=== PATIENT | female | born 1940 | race Caucasian/White ===

== ENCOUNTER 2020-12-07 09:26 | Inpatient (IN) | payer MEDICARE, SELFPAY ==
--- NOTE | ~2020-12-07 | XR_ITS ---
EXAMINATION: XR CHEST CLINICAL INFORMATION: Shortness of breath COMPARISON: Chest CT August 30, 2019 TECHNIQUE: Frontal view of the chest was obtained. FINDINGS: The cardiac silhouette is enlarged. Lungs are adequately aerated. Prominence of the central pulmonary vasculature and diffuse interstitial markings. No gross lobar consolidation identified. No pleural effusion or pneumothorax. XR/XR chest 1V IMPRESSION: X-rays findings are very similar to retail commission sales associate radiograph imaging from August 30, 2019 and likely branch customer service representative of diffuse emphysematous changes of the lungs. A mild superimposed viral infiltrate or mild volume overload are also within the differential. Clinical correlation is recommended.
[2020-12-07 09:32] VITALS: PULSE 60; O2SAT 98
[2020-12-07 09:35] VITALS: BP 121/61; PULSE 60; RESP 18; TEMP 36.2; O2SAT 99; BMI 37.5
--- NOTE | 2020-12-07 09:46 | ECG_ITS ---
Test Reason : DYSPNEA Blood Pressure : / mmHG Vent. Rate : 065 BPM Atrial Rate : 000 BPM P-R Int : 000 ms QRS Dur : 098 ms QT Int : 414 ms P-R-T Axes : 000 111 241 degrees QTc Int : 430 ms Atrial fibrillation RSR' or QR pattern in V1 suggests right ventricular conduction delay Possible Right ventricular hypertrophy ST & T wave abnormality, consider inferior ischemia ST & T wave abnormality, consider anterolateral ischemia Abnormal ECG No previous ECGs available Referred By: Senait Richard Electronically Signed By:BRYSON NARVAEZ MD
--- NOTE | 2020-12-07 09:47 | ED.GENADULT ---
HPI - General Adult General Chief complaint: Dyspnea Stated complaint: ? Time Seen by Provider: 12/07/20 09:45 Source: patient and EMS Mode of arrival: EMS Limitations: no limitations History of Present Illness HPI narrative: 80-year-old female brought in by ambulance from rehab for evaluation of hypoxia, dyspnea. Patient is known to have history of congestive heart failure, COPD, PE (on chronic Coumadin). Patient was found at the rehab place to be hypoxic and complaining of dyspnea patient was sent by the rehab for further evaluation in the emergency department. Patient while in the emergency department appears stable, complaining of bilateral lower extremity swelling, patient had a recent hospitalization at [facility] for congestive heart failure ([facility] record were requested). Patient also has been complaining of nonproductive dry cough, no fever, no chills. Related Data Allergies Allergy/AdvReac Type Severity Reaction Status Date / Time No Known Allergies Allergy Verified 12/07/20 09:41 Review of Systems Review of Systems: All other systems are reviewed and are negative Constitutional: Reports as per HPI and Reports no additional constitutional complaints Eyes: Reports as per HPI and Reports no additional eye complaints Reports system reviewed and no additional complaints, except as documented Cardiovascular: Reports as per HPI and Reports no additional cardiovascular complaints Respiratory: Reports as per HPI and Reports no additional respiratory complaints Gastrointestinal: Reports as per HPI and Reports no additional gastrointestinal complaints Genitourinary: Reports no additional female genitourinary complaints Musculoskeletal: Reports no additional musculoskeletal complaints Skin/Breast: Reports system reviewed and no additional complaints, except as docu Psychiatric: Reports no additional psychiatric complaints Endocrine: Reports no additional endocrine complaints Hematologic/Lymphatic: Reports no additional hematologic/lymphatic complaints Allergic/Immunologic: Reports no additional allergic/immunologic complaints Reports system reviewed and no additional complaints, except as documented and Reports Abnormal speech present [facility] Past Medical History Medical History A-fib CHF (congestive heart failure) CKD (chronic kidney disease) COPD (chronic obstructive pulmonary disease) Depression GERD (gastroesophageal reflux disease) Gout HTN (hypertension) Hypothyroid Obesity Pulmonary HTN Social History Social History Advance Directives: No Advance Directives Information Provided: No Physical Exam Vital Signs: Vital Signs: Last Vital Signs Temp 98.4 F 12/07/20 12:46 Pulse 63 12/07/20 12:46 Resp 16 12/07/20 12:46 BP 125/59 L 12/07/20 12:46 Pulse Ox 96 12/07/20 12:46 Oxygen Flow Rate 2 12/07/20 09:35 Body Mass Index 37.5 Vital signs have been reviewed as appeared to be correct. Blood pressure normal. Heart rate normal. Respiration rate normal. Temperature normal. Oxygen saturation normal. Appearance: Alert. Oriented X3. No acute distress. Head: Normal external exam. Normocephalic. Atraumatic. No Emery signs noted. No raccoon eyes noted Eyes: PERRLA. EOMI. Conjunctiva and sclera normal. Eyelids normal. ENT: TM's Normal. Pharynx normal. Uvula midline. Moist mucous membranes. No trismus noted. No drooling noted. No muffled voice noted. Neck: Normal inspection. Neck supple. FROM. No adenopathy. Thyroid Normal. No meningeal signs. No neck mass noted. CVS: Normal heart rate and rhythm. Heart sound normal. No murmurs noted. Pulses normal throughout. Respiratory: No respiratory distress. Painless inspiration. Breath sounds normal. Mild diffuse bilateral expiratory wheezing with prolonged expiration. Bilateral basilar rales on both lung valdes. Chest nontender. No accessory muscle usage noted or decreased air movement noted. Abdomen: Soft and nontender. Bowel sounds normal in all 4 quadrants. No distention noted. No organomegaly noted. No visible injury noted. Back: No CVA tenderness. Full range of motion noted. Skin: Skin warm and dry. Normal skin color. Normal skin turgor. No rashes/lesions/lacerations noted. Extremities: +2 bilateral lower extremity edema. Extremities exhibit normal range of motion. Extremities nontender. Neuro: Oriented X 3. Cranial nerve exam: II-XII are grossly intact No motor deficit. No sensory deficit. Reflexes normal. Course Course Course Narrative: Assessment and plan. 80-year-old female came in from rehab for shortness of breath and hypoxia. Physical exam and labs are consistent with congestive heart failure/CKD. Will admit for diuresis, and monitoring CMP. Medical Decision Making Lab Data Lab results reviewed: Yes I reviewed the patient's lab results. Result diagrams: 12/07/20 11:44 12/07/20 11:44 Labs: Lab Results 12/07/20 12/07/20 12/07/20 Range/Units 11:44 11:44 11:44 WBC 7.6 (4.8-10.8) X10*3/uL RBC 3.94 L (4.20-5.50) X10*6/uL Hgb 12.8 (12.0-16.0) g/dl Hct 39.5 (37-47) % MCV 100.3 H (80-98) fL MCH 32.5 (27.0-33.0) pg MCHC 32.4 (31.0-35.0) g/dl RDW 18.9 H (11.0-16.0) % Plt Count 143 L (160-400) X10*3/uL MPV 11.4 (9.4-12.3) fL Immature Gran % (Auto) 0.4 (0.0-0.4) % Neut % (Auto) 80.7 H (45-73) % Lymph % (Auto) 6.8 L (20-40) % [place] % (Auto) 7.3 (2-11) % Eos % (Auto) 4.4 H (0-4) % Baso % (Auto) 0.4 (0-2) % Lymph # (Auto) 0.5 L (1.2-4.9) X10*3/uL [place] # (Auto) 0.6 (0.1-1.2) X10*3/uL Eos # (Auto) 0.3 (0.0-0.4) X10*3/uL Baso # (Auto) 0.0 (0.0-0.2) X10*3/uL Abs Immat Gran (auto) 0.03 (0.00-0.03) X10*3/uL Absolute Neuts (auto) 6.1 (2.0-8.3) X10*3/uL Absolute Nucleated RBC 0.000 (0.0-0.012) X10*3/uL Nucleated RBC % (auto) 0.0 (0.0-0.2) /100WBC Sodium 138 (135-145) mmol/L Potassium 4.0 (3.3-5.1) mmol/L Chloride 107 (96-108) mmol/L Carbon Dioxide 21 L (22-29) mmol/L Anion Gap 14 (12-20) BUN 87 H* (9-16) mg/dL Creatinine 2.74 H (0.5-1.4) mg/dL Estim Creat Clear Calc 20.4 Estimated GFR 17 Random Glucose 108 (60-115) mg/dL Calcium 8.7 (8.4-10.2) mg/dL Total Bilirubin 2.0 H (0.0-1.0) mg/dL Direct Bilirubin 1.5 H (0.0-0.5) mg/dL AST 13 (5-31) U/L ALT 12 (0-31) U/L Alkaline Phosphatase 95 (39-117) U/L Troponin I High Sens 13.2 (<3.5-17.0) ng/L B-Natriuretic Peptide (<100) pg/mL Total Protein 6.0 L (6.5-8.0) g/dL Albumin 3.3 L (3.5-5.0) g/dL Lipase 17 (8-78) U/L COVID-19 ([facility]) (Negative) COVID-19 Clin Com 12/07/20 12/07/20 Range/Units 11:44 11:44 WBC (4.8-10.8) X10*3/uL RBC (4.20-5.50) X10*6/uL Hgb (12.0-16.0) g/dl Hct (37-47) % MCV (80-98) fL MCH (27.0-33.0) pg MCHC (31.0-35.0) g/dl RDW (11.0-16.0) % Plt Count (160-400) X10*3/uL MPV (9.4-12.3) fL Immature Gran % (Auto) (0.0-0.4) % Neut % (Auto) (45-73) % Lymph % (Auto) (20-40) % [place] % (Auto) (2-11) % Eos % (Auto) (0-4) % Baso % (Auto) (0-2) % Lymph # (Auto) (1.2-4.9) X10*3/uL [place] # (Auto) (0.1-1.2) X10*3/uL Eos # (Auto) (0.0-0.4) X10*3/uL Baso # (Auto) (0.0-0.2) X10*3/uL Abs Immat Gran (auto) (0.00-0.03) X10*3/uL Absolute Neuts (auto) (2.0-8.3) X10*3/uL Absolute Nucleated RBC (0.0-0.012) X10*3/uL Nucleated RBC % (auto) (0.0-0.2) /100WBC Sodium (135-145) mmol/L Potassium (3.3-5.1) mmol/L Chloride (96-108) mmol/L Carbon Dioxide (22-29) mmol/L Anion Gap (12-20) BUN (9-16) mg/dL Creatinine (0.5-1.4) mg/dL Estim Creat Clear Calc Estimated GFR Random Glucose (60-115) mg/dL Calcium (8.4-10.2) mg/dL Total Bilirubin (0.0-1.0) mg/dL Direct Bilirubin (0.0-0.5) mg/dL AST (5-31) U/L ALT (0-31) U/L Alkaline Phosphatase (39-117) U/L Troponin I High Sens (<3.5-17.0) ng/L B-Natriuretic Peptide 2701 H (<100) pg/mL Total Protein (6.5-8.0) g/dL Albumin (3.5-5.0) g/dL Lipase (8-78) U/L COVID-19 ([facility]) Negative (Negative) COVID-19 Clin Com See Note Imaging Data Chest x-ray: Radiologist's impression: X-rays findings are very similar to hide stretcher hand radiograph imaging from August 30, 2019 and likely parts counter representative of diffuse emphysematous changes of the lungs. A mild superimposed viral infiltrate or mild volume overload are also within the differential. Clinical correlation is recommended. ? Discharge Plan Discharge Clinical Impression: Congestive heart failure, Acute on chronic kidney failure Patient Disposition: Admitted As Inpatient
[2020-12-07 11:48] LABS: MANUAL DIFF FLAG NO
[2020-12-07 11:50] LABS: Basophils Percent Auto 0.4 % (0-2); Eosinophils Absolute Auto 0.3 X10*3/uL (0.0-0.4); Eosinophils Percent Auto 4.4 % (0-4); Hematocrit 39.5 % (37-47); Hemoglobin 12.8 g/dl (12.0-16.0); Imm Gran Abs Auto 0.03 X10*3/uL (0.00-0.03); Imm Gran Pct Auto 0.4 % (0.0-0.4); Lymphocytes Absolute Auto 0.5 X10*3/uL (1.2-4.9); Lymphocytes Percent Auto 6.8 % (20-40); Mean Corpuscular HGB Conc 32.4 g/dl (31.0-35.0); Mean Corpuscular Hemoglobin 32.5 pg (27.0-33.0); Mean Corpuscular Volume 100.3 fL (80-98); Mean Platelet Volume 11.4 fL (9.4-12.3); Monocytes Absolute Auto 0.6 X10*3/uL (0.1-1.2); Monocytes Percent Auto 7.3 % (2-11); Neutrophils Absolute Auto 6.1 X10*3/uL (2.0-8.3); Neutrophils Percent Auto 80.7 % (45-73); Platelet Count 143 X10*3/uL (160-400); Red Blood Count 3.94 X10*6/uL (4.20-5.50); Red Cell Distribution Width 18.9 % (11.0-16.0); White Blood Count 7.6 X10*3/uL (4.8-10.8)
[2020-12-07 12:04] LABS: COVID-19 Test Negative (Negative)
[2020-12-07 12:08] LABS: Alanine Aminotransferase 12 U/L (0-31); Albumin Level 3.3 g/dL (3.5-5.0); Alkaline Phosphatase 95 U/L (39-117); Anion Gap 14 (12-20); Aspartate Amino Transferase 13 U/L (5-31); Bilirubin Direct 1.5 mg/dL (0.0-0.5); Blood Urea Nitrogen 87 mg/dL (9-16); Calcium 8.7 mg/dL (8.4-10.2); Carbon Dioxide 21 mmol/L (22-29); Chloride 107 mmol/L (96-108); Creatinine Clr Calc Pharmacy 20.4; Estimated Glomerular Filt Rate 17; Glucose Random 108 mg/dL (60-115); Lipase 17 U/L (8-78); Sodium 138 mmol/L (135-145)
[2020-12-07 12:11] LABS: B Type Natriuretic Peptide 2701 pg/mL (<100); Troponin-I High Sensitivity 13.2 ng/L (<3.5-17.0)
[2020-12-07 12:46] VITALS: BP 125/59; PULSE 63; RESP 16; TEMP 36.9; O2SAT 96
--- NOTE | 2020-12-07 13:38 | HO.PM.IMCN ---
History of Present Illness Data of Consult Service Date: 12/07/20 Requesting physician: Tian Neri Primary Care Provider: Manny Adams MD HPI Reason for consult: This admitting H istor and Physical not consult chief complaint: shortness of breath 80 year female with congestive heart failure detail or EF unknown, CKD4 followed by Dr. Hancock, COPD, AFIB on coumadin and other PMH as listed below. She was recently admitted to [facility] and treated for shortness and heart failure for nearly a week and was discharged to rehab 2 days ago and she presented to [place] ED with increasing shortness of breath, and increasing leg edema. She has been sleeping in recliner and does have PND. Finding here including BNP of 2701, CXR shows elements of CHF, covid negative (She's vaccinated ). Given 20 mg of IV Lasix. Review of Systems Review of Systems: Gen: no fever Resp: + sob, no cough CV: no chest, + RAE, + leg edema GI: No n/v, no abd pain Neuro: No confusion Yes all other systems are reviewed and are negative [facility] Medical History A-fib CHF (congestive heart failure) CKD (chronic kidney disease) COPD (chronic obstructive pulmonary disease) Depression GERD (gastroesophageal reflux disease) Gout HTN (hypertension) Hypothyroid Obesity Pulmonary HTN Family History Father Diabetes Pertinent family history: Mother of old age Social History Household Members: Children Housing: House Do you presently have visiting nurse or other home services: No Alcohol intake: never Patient Tobacco Use Status: Former Tobacco user Quit Date: quit 20 years ago Use of substances other than those prescribed or required for medical reasons: No Have you been hit, kicked, punched, or otherwise hurt by someone within the past year? If so, by whom?: No Do you feel safe in your current relationship?: No Current Relationship Is there a partner from a previous relationship who is making you feel unsafe now?: No Are you made to feel afraid or neglected: No Advance Directives: No Advance Directives Information Provided: No Do you have thoughts of harming others: None Do you have a plan to hurt others: No Plan Recently lost weight without trying: No Nutrition Risks: No Nutritional Risk Patient : No : No Poor oral hygiene: No Meds Allergies Allergy/AdvReac Type Severity Reaction Status Date / Time No Known Allergies Allergy Verified 12/07/20 09:41 Active Medications: Current Medications Pharmacy Consult (Consult Rx Perform Med Rec) 1 each MISCELLANE ONCE PRN PRN Reason: Consult order Home Medications Medication Instructions Recorded Confirmed Last Taken Type acetaminophen 325 mg tablet 650 mg PO Q4H PRN 12/07/20 12/07/20 Unknown History albuterol sulfate 90 mcg/actuation 1 puff INHALATION Q4H PRN 12/07/20 12/07/20 Unknown History aerosol inhaler allopurinol 100 mg tablet 1 tab PO DAILY 12/07/20 12/07/20 12/07/20 History budesonide-formoterol HFA 160 2 puff INHALATION DAILY 12/07/20 12/07/20 12/07/20 History mcg-4.5 mcg/actuation aerosol inhaler (Symbicort) bupropion HCl 75 mg tablet 150 mg PO DAILY 12/07/20 12/07/20 12/07/20 History ferrous sulfate 325 mg (65 mg 325 mg PO DAILY 12/07/20 12/07/20 12/07/20 History iron) tablet,delayed release furosemide 40 mg tablet 40 mg PO BID 12/07/20 12/07/20 12/07/20 History glipizide 2.5 mg tablet, extended 2.5 mg PO DAILY 12/07/20 12/07/20 12/07/20 History release 24 hr guaifenesin 100 mg/5 mL oral 200 mg PO Q4H PRN 12/07/20 12/07/20 12/05/20 History liquid (Serena-Tussin) levothyroxine 75 mcg tablet 75 mcg PO DAILY 12/07/20 12/07/20 12/07/20 History metoprolol tartrate 25 mg tablet 25 mg PO BID 12/07/20 12/07/20 12/07/20 History multivitamin 1 tab PO DAILY 12/07/20 12/07/20 12/07/20 History pantoprazole 40 mg tablet,delayed 40 mg PO DAILY 12/07/20 12/07/20 12/07/20 History release sildenafil (pulm.hypertension) 20 20 mg PO TID 12/07/20 12/07/20 12/07/20 History mg tablet tiotropium bromide 18 mcg capsule 18 mcg INHALATION DAILY 12/07/20 12/07/20 12/07/20 History with inhalation device (Spiriva with HandiHaler) warfarin 2 mg tablet 2 mg PO DAILY 12/07/20 12/07/20 12/06/20 16:31 History Physical Exam Vital Signs and Narrative: Vital Signs: Last Vital Signs Temp 98.4 F 12/07/20 12:46 Pulse 63 12/07/20 12:46 Resp 16 12/07/20 12:46 BP 125/59 L 12/07/20 12:46 Pulse Ox 96 12/07/20 12:46 Oxygen Flow Rate 2 12/07/20 09:35 Body Mass Index 37.5 Const: Other: Constitutional: Alert, in no distress, overweight. Mental Status: Oriented to person, place and time. Eyes: Pupils are equal, round and reactive to light. Ear, Nose and Throat: Oropharynx clear, mucous membranes moist. Ears and nose without eformities. Trachea midline. Respiratory: Clear to auscultation. No wheezing. Has rales at both bases. Cardiovascular: S1 S2 iregu iregular. No murmurs, rubs or gallops. 2+pitting edema bilaterally Gastrointestinal: Abdomen soft, non-tender, non-distended. Normal bowel sounds.? Neurologic: Cranial nerves II-XII grossly intact. No focal neurological deficits. Moves all extremities spontaneously.? Skin: No rashes or lesions.? Musculoskeletal: No cyanosis or clubbing. Psychiatric: Normal mood and affect? Results Labs CBC and Chem 7: 12/07/20 11:44 12/07/20 11:44 Labs: Laboratory Results - last 24 hr 12/07/20 12/07/20 12/07/20 11:44 11:44 11:44 MCV 100.3 H MCH 32.5 MCHC 32.4 RDW 18.9 H Plt Count 143 L MPV 11.4 Immature Gran % (Auto) 0.4 Neut % (Auto) 80.7 H Lymph % (Auto) 6.8 L [place] % (Auto) 7.3 Eos % (Auto) 4.4 H Baso % (Auto) 0.4 Lymph # (Auto) 0.5 L [place] # (Auto) 0.6 Eos # (Auto) 0.3 Baso # (Auto) 0.0 Abs Immat Gran (auto) 0.03 Absolute Neuts (auto) 6.1 Absolute Nucleated RBC 0.000 Nucleated RBC % (auto) 0.0 Anion Gap 14 Estim Creat Clear Calc 20.4 Estimated GFR 17 Random Glucose 108 Calcium 8.7 Total Bilirubin 2.0 H Direct Bilirubin 1.5 H AST 13 ALT 12 Alkaline Phosphatase 95 Troponin I High Sens 13.2 B-Natriuretic Peptide Total Protein 6.0 L Albumin 3.3 L Lipase 17 COVID-19 ([facility]) COVID-19 Clin Com 12/07/20 12/07/20 11:44 11:44 MCV MCH MCHC RDW Plt Count MPV Immature Gran % (Auto) Neut % (Auto) Lymph % (Auto) [place] % (Auto) Eos % (Auto) Baso % (Auto) Lymph # (Auto) [place] # (Auto) Eos # (Auto) Baso # (Auto) Abs Immat Gran (auto) Absolute Neuts (auto) Absolute Nucleated RBC Nucleated RBC % (auto) Anion Gap Estim Creat Clear Calc Estimated GFR Random Glucose Calcium Total Bilirubin Direct Bilirubin AST ALT Alkaline Phosphatase Troponin I High Sens B-Natriuretic Peptide 2701 H Total Protein Albumin Lipase COVID-19 ([facility]) Negative COVID-19 Clin Com See Note Imaging Radiologist's Impressions: Impressions Chest X-Ray 12/07/20 09:45 IMPRESSION: X-rays findings are very similar to traveling plant operator radiograph imaging from August 30, 2019 and likely risk control field representative of diffuse emphysematous changes of the lungs. A mild superimposed viral infiltrate or mild volume overload are also within the differential. Clinical correlation is recommended. Assessment and Plan (1) Congestive heart failure: Status: Acute 80 year old female with chronc heart failure, likely systolic, HTN, HLD, AFIB, CKD 4, recent hospitalization at [facility] for heart failure exacerbation and here with yet another exacerbation of heart failure. #Acute on chronic congestive heart failure, I suspect systolic in nature. -IV diuretics, I think she needs more than 20 of Lasix -Get record from [facility] cardiology to see -Follow I/O, weight, salt, and trend BNP. There is no evidence of ischemia #COPD--there is no acute exacerbation #AFIB--continue coumadin and rate control agents #CKD--there is no SAM, BUN/CRe at [facility] yesterday was 79/2.49, she see Dr. Hancock #
--- NOTE | 2020-12-07 13:55 | PC.NURSE ---
pt is aware of plan care for admission to hosp.
--- NOTE | 2020-12-07 13:57 | PC.NURSE ---
lungs - dimished all lobes.
--- NOTE | 2020-12-07 14:29 | PHA.MEDREC ---
Pharmacy Consult ? Medication Reconciliation Pharmacy has completed the medication reconciliation. There are no remarkable issues for provider's attention. Patient came from [facility] with a medication list. Padmini Dominguez, CarolD
[2020-12-07] MEDS: Furosemide 20 MG/2 ML VIAL IVPUSH (15:19)
[2020-12-07 15:50] VITALS: BP 108/54; PULSE 76; RESP 18; TEMP 36.6; O2SAT 97
[2020-12-07 16:52] LABS: INTERNATIONAL NORM RATIO 1.6 (0.9-1.1)
[2020-12-07] MEDS: 0.9 % Sodium Chloride Flush 3 ML SYRINGE IVFLUSH (17:45)
[2020-12-07 19:21] VITALS: BP 114/51; PULSE 71; RESP 18; TEMP 36.6; O2SAT 93
[2020-12-07 19:32] LABS: Appearance Urine CLEAR; Color Urine YELLOW; Glucose Urine UA NEG (NEG); Leukocyte Esterase Urine NEG (NEG); Nitrite Urine NEG (NEG); PH 5.5 (5.0-8.0); Specific Gravity - Urine 1.015 (1.005-1.025); UACC Culture Trigger NO; Urine Blood TRACE (NEG); Urine Ketones NEG (NEG); Urine Protein NEG (NEG-TRACE)
[2020-12-07 19:39] LABS: Bacteria Urine 2+ /LPF; Squamous Epithelial Cell Urine 1+ /LPF
[2020-12-07 20:53] VITALS: BP 124/61; PULSE 74
[2020-12-07] MEDS: Metoprolol Tartrate 25 MG TABLET PO (20:53)
[2020-12-07] MEDS: Warfarin Sodium 2 MG TABLET PO (20:54)
[2020-12-07] MEDS: Sildenafil Citrate 20 MG TABLET PO (20:55)
[2020-12-07] MEDS: Furosemide 40 MG TABLET PO (20:55)
[2020-12-07] MEDS: Acetaminophen 325 MG TABLET 650 MG PO (23:20)
[2020-12-08] VITALS (9 sets, daily range): BP systolic 95–120; BP diastolic 53–62; PULSE 53–69; RESP 17–20; TEMP 36.1–37.1; O2SAT 91–95; BMI 38.1; BMI 38.4
[2020-12-08] MEDS: 0.9 % Sodium Chloride Flush 3 ML SYRINGE IVFLUSH ×3 (01:34→16:05)
[2020-12-08] MEDS: Omeprazole 20 MG CAPSULE.DR PO (06:17)
[2020-12-08 07:24] LABS: INTERNATIONAL NORM RATIO 1.7 (0.9-1.1); Prothrombin Time 19.5 SEC (9.9-13.0)
[2020-12-08 07:31] LABS: Glucose, Whole Blood 79 mg/dL (60-115)
[2020-12-08 07:40] LABS: B Type Natriuretic Peptide 2712 pg/mL (<100)
[2020-12-08 07:48] LABS: Anion Gap 15 (12-20); Blood Urea Nitrogen 90 mg/dL (9-16); Carbon Dioxide 21 mmol/L (22-29); Chloride 108 mmol/L (96-108); Creatinine Clr Calc Pharmacy 20.8; Estimated Glomerular Filt Rate 17; Glucose Random 67 mg/dL (60-115); Potassium 4.4 mmol/L (3.3-5.1); Sodium 140 mmol/L (135-145)
[2020-12-08] MEDS: Sildenafil Citrate 20 MG TABLET PO ×3 (08:15→19:47)
[2020-12-08] MEDS: allopurinoL 100 MG TABLET PO (08:15)
[2020-12-08] MEDS: Multivitamin TABLET 1 TAB PO (08:15)
[2020-12-08] MEDS: glipiZIDE XL 2.5 MG TAB.ER.24 PO (08:15)
[2020-12-08] MEDS: Ferrous Sulfate 324 MG TABLET.DR PO (08:15)
[2020-12-08] MEDS: Levothyroxine Sodium 75 MCG TABLET PO (08:15)
[2020-12-08] MEDS: Furosemide 40 MG/4 ML VIAL IVPUSH (08:15)
[2020-12-08] MEDS: buPROPion HCL 75 MG TABLET 150 MG PO (08:15)
[2020-12-08] MEDS: Metoprolol Tartrate 25 MG TABLET PO ×2 (08:16→19:47)
[2020-12-08] MEDS: Fluticasone/Vilanterol 200/25 BLST.W.DEV 1 PUFF INHALE (09:11)
--- NOTE | 2020-12-08 10:16 | P.PNIM_ITS ---
Subjective Subjective Date of Service: 12/09/20 Interval History: Seen in f/u for exacerbation of heart failure, She feels better today, no sob Review of Systems Gen: no fever Resp: no sob, no cough CV: no chest, +RAE, + leg edema GI: No n/v, no abd pain Neuro: No confusion Physical Exam Vital Signs: Vital Signs: Last Vital Signs Temp 97.5 F 12/08/20 07:26 Pulse 69 12/08/20 08:16 Resp 18 12/08/20 07:26 BP 111/60 12/08/20 08:16 Pulse Ox 95 12/08/20 07:26 Oxygen Flow Rate 2 12/07/20 09:35 Body Mass Index 38.4 Const: Other: General: AO X 3, no acute distress Resp: CTA bilateral CVS: S1,S2, iregular iregular, no JVD, 1+ leg edema GI: +BS, NT, no distention Skin: No rash Neuro: motor grossly intact Psych: appropriate affect Objective Data Active Medications Acetaminophen (Acetaminophen 325 Mg Tablet) 650 mg PO Q6H PRN PRN Reason: Pain, Mild (Pain Scale 1-3) Acetaminophen (Acetaminophen 325 Mg Tablet) 650 mg PO Q4H PRN PRN Reason: pain or fever Last Admin: 12/07/20 23:20 Dose: 650 mg Documented by: JASMIN Al Hydroxide/Mg Hydroxide (Magnesium Hydrox/Alum Hydrox 30 Ml Oral.Susp) 30 ml PO Q4H PRN PRN Reason: Heartburn/Nausea Albuterol Sulfate (Albuterol Sulfate 90 Mcg 8 Gm Inhaler) 1 puff INHALE Q4H PRN PRN Reason: Wheezing Allopurinol (Allopurinol 100 Mg Tablet) 100 mg PO DAILY [facility] Last Admin: 12/08/20 08:15 Dose: 100 mg Documented by: AZIZA Bupropion HCl (Bupropion Hcl 75 Mg Tablet) 150 mg PO DAILY [facility] Last Admin: 12/08/20 08:15 Dose: 150 mg Documented by: AZIZA Ferrous Sulfate (Ferrous Sulfate 324 Mg Tablet.Dr) 324 mg PO DAILY [facility] Last Admin: 12/08/20 08:15 Dose: 324 mg Documented by: AZIZA Fluticasone/Vilanterol (Fluticasone/Vilanterol 200/25 Blst.W.Dev) 1 puff INHALE DAILY [facility] Last Admin: 12/08/20 09:11 Dose: 1 puff Documented by: WILMA Furosemide (Furosemide 40 Mg Tablet) 40 mg PO BID [facility]; Protocol Last Admin: 12/08/20 08:15 Dose: Not Given Documented by: AZIZA Non-Admin Reason: on iv Furosemide (Furosemide 40 Mg/4 Ml Vial) 40 mg IVPUSH DAILY [facility]; Protocol Last Admin: 12/08/20 08:15 Dose: 40 mg Documented by: AZIZA Glipizide (Glipizide Xl 2.5 Mg Tab.Er.24) 2.5 mg PO DAILY [facility] Last Admin: 12/08/20 08:15 Dose: 2.5 mg Documented by: AZIZA Levothyroxine Sodium (Levothyroxine Sodium 75 Mcg Tablet) 75 mcg PO DAILY [facility] Last Admin: 12/08/20 08:15 Dose: 75 mcg Documented by: AZIZA Melatonin (Melatonin 3 Mg Tablet) 3 mg PO BEDTIME PRN PRN Reason: Insomnia Metoprolol Tartrate (Metoprolol Tartrate 25 Mg Tablet) 25 mg PO BID [facility]; Protocol Last Admin: 12/08/20 08:16 Dose: 25 mg Documented by: AZIZA Multivitamins/Vitamin C (Multivitamin Tablet) 1 tab PO DAILY [facility] Last Admin: 12/08/20 08:15 Dose: 1 tab Documented by: AZIZA Omeprazole (Omeprazole 20 Mg Capsule.Dr) 20 mg PO DAILY@0600 [facility] Last Admin: 12/08/20 06:17 Dose: 20 mg Documented by: AMANDA Ondansetron HCl (Ondansetron Hcl 4 Mg/2 Ml Vial) 4 mg IVPUSH Q8H PRN PRN Reason: Nausea and Vomiting Pharmacy Consult (Consult Rx Perform Med Rec) 1 each MISCELLANE ONCE PRN PRN Reason: Consult order Sildenafil Citrate (Sildenafil Citrate 20 Mg Tablet) 20 mg PO TID [facility] Last Admin: 12/08/20 08:15 Dose: 20 mg Documented by: AZIZA Sodium Chloride (0.9 % Sodium Chloride Flush 3 Ml Syringe) 3 ml IVFLUSH QSHIFT [facility] Last Admin: 12/08/20 08:15 Dose: 3 ml Documented by: AZIZA Tiotropium [place] (Tiotropium [place] 18 Mcg Cap.W.Dev) 1 puff INHALE DAILY [facility] Last Admin: 12/08/20 09:11 Dose: 1 puff Documented by: WILMA Warfarin Sodium (Warfarin Sodium 2 Mg Tablet) 2 mg PO DAILY@1800 [facility] Last Admin: 12/07/20 20:54 Dose: 2 mg Documented by: NOE Labs CBC & Chem 7: 12/07/20 11:44 12/09/20 06:23 Labs: Laboratory Results - last 24 hr 12/07/20 12/07/20 12/07/20 11:44 11:44 11:44 MCV 100.3 H MCH 32.5 MCHC 32.4 RDW 18.9 H Plt Count 143 L MPV 11.4 Immature Gran % (Auto) 0.4 Neut % (Auto) 80.7 H Lymph % (Auto) 6.8 L Lander % (Auto) 7.3 Eos % (Auto) 4.4 H Baso % (Auto) 0.4 Lymph # (Auto) 0.5 L Lander # (Auto) 0.6 Eos # (Auto) 0.3 Baso # (Auto) 0.0 Abs Immat Gran (auto) 0.03 Absolute Neuts (auto) 6.1 Absolute Nucleated RBC 0.000 Nucleated RBC % (auto) 0.0 PT INR Anion Gap 14 Estim Creat Clear Calc 20.4 Estimated GFR 17 POC Glucose Random Glucose 108 Calcium 8.7 Total Bilirubin 2.0 H Direct Bilirubin 1.5 H AST 13 ALT 12 Alkaline Phosphatase 95 Troponin I High Sens 13.2 B-Natriuretic Peptide Total Protein 6.0 L Albumin 3.3 L Lipase 17 Urine Color Urine Appearance Urine pH Ur Specific Catlett Urine Protein Urine Glucose (UA) Urine Ketones Urine Blood Urine Nitrite Ur Leukocyte Esterase Urine RBC Urine WBC Ur Squamous Epith Cells Urine Bacteria COVID-19 ([facility]) COVID-19 Clin Com 12/07/20 12/07/20 12/07/20 11:44 11:44 16:29 MCV MCH MCHC RDW Plt Count MPV Immature Gran % (Auto) Neut % (Auto) Lymph % (Auto) Lander % (Auto) Eos % (Auto) Baso % (Auto) Lymph # (Auto) Lander # (Auto) Eos # (Auto) Baso # (Auto) Abs Immat Gran (auto) Absolute Neuts (auto) Absolute Nucleated RBC Nucleated RBC % (auto) PT 18.0 H INR 1.6 H Anion Gap Estim Creat Clear Calc Estimated GFR POC Glucose Random Glucose Calcium Total Bilirubin Direct Bilirubin AST ALT Alkaline Phosphatase Troponin I High Sens B-Natriuretic Peptide 2701 H Total Protein Albumin Lipase Urine Color Urine Appearance Urine pH Ur Specific Catlett Urine Protein Urine Glucose (UA) Urine Ketones Urine Blood Urine Nitrite Ur Leukocyte Esterase Urine RBC Urine WBC Ur Squamous Epith Cells Urine Bacteria COVID-19 ([facility]) Negative COVID-19 Clin Com See Note 12/07/20 12/08/20 12/08/20 19:25 06:20 06:20 MCV MCH MCHC RDW Plt Count MPV Immature Gran % (Auto) Neut % (Auto) Lymph % (Auto) Lander % (Auto) Eos % (Auto) Baso % (Auto) Lymph # (Auto) Lander # (Auto) Eos # (Auto) Baso # (Auto) Abs Immat Gran (auto) Absolute Neuts (auto) Absolute Nucleated RBC Nucleated RBC % (auto) PT INR Anion Gap 15 Estim Creat Clear Calc 20.8 Estimated GFR 17 POC Glucose Random Glucose 67 Calcium 9.0 Total Bilirubin Direct Bilirubin AST ALT Alkaline Phosphatase Troponin I High Sens B-Natriuretic Peptide 2712 H Total Protein Albumin Lipase Urine Color YELLOW Urine Appearance CLEAR Urine pH 5.5 Ur Specific Catlett 1.015 Urine Protein NEG Urine Glucose (UA) NEG Urine Ketones NEG Urine Blood TRACE Urine Nitrite NEG Ur Leukocyte Esterase NEG Urine RBC 1-4 Urine WBC 1-4 Ur Squamous Epith Cells 1+ Urine Bacteria 2+ COVID-19 ([facility]) COVID-19 Clin Com 12/08/20 12/08/20 06:20 07:25 MCV MCH MCHC RDW Plt Count MPV Immature Gran % (Auto) Neut % (Auto) Lymph % (Auto) Lander % (Auto) Eos % (Auto) Baso % (Auto) Lymph # (Auto) Lander # (Auto) Eos # (Auto) Baso # (Auto) Abs Immat Gran (auto) Absolute Neuts (auto) Absolute Nucleated RBC Nucleated RBC % (auto) PT 19.5 H INR 1.7 H Anion Gap Estim Creat Clear Calc Estimated GFR POC Glucose 79 Random Glucose Calcium Total Bilirubin Direct Bilirubin AST ALT Alkaline Phosphatase Troponin I High Sens B-Natriuretic Peptide Total Protein Albumin Lipase Urine Color Urine Appearance Urine pH Ur Specific Catlett Urine Protein Urine Glucose (UA) Urine Ketones Urine Blood Urine Nitrite Ur Leukocyte Esterase Urine RBC Urine WBC Ur Squamous Epith Cells Urine Bacteria COVID-19 ([facility]) COVID-19 Clin Com Assessment and Plan (1) Congestive heart failure: Status: Acute (2) Acute on chronic kidney failure: Status: Acute Assessment and Plan: ?80 year old female with chronc heart failure, likely systolic, HTN, HLD, AFIB, CKD 4, recent hospitalization at [facility] for heart failure exacerbation and here with yet another exacerbation of heart failure.? #Acute on chronic congestive heart failure, I suspect systolic in nature., she feels better, no change in BNP -IV diuretics (Lasisx) -Get record from [facility] -Cardiology consult -Follow I/O, weight, salt, and trend BNP. There is no evidence of ischemia #COPD--there is no acute exacerbation, bronchodilators PRN #Chronic AFIB--continue coumadin and rate control with metoprolol, adjust coumadin, INR 1.7 #CKD--? mild SAM, consult Dr. Donna Hancock, BUN/CRe at [facility] 12/06 was 79/2.49, today 90/2.72 #Hypothyroidism--levothyroxine Quality Stroke Does the patient have a stroke diagnosis?: No VTE Prior VTE?: No VTE Risk Level:: Medical - moderate - high VTE Device Contraindication: Treatment Not Indicated VTE Drug Contraindication: N/A - Med Ordered
[2020-12-08 11:34] LABS: Glucose, Whole Blood 81 mg/dL (60-115)
--- NOTE | 2020-12-08 11:39 | MHC.CM.PN ---
Addendum entered by Antonette Toney 12/08/20 11:49: [facility] IS CLOSED TO ADMISSIONS. REFERRAL PLACED TO [facility], AWAITING RESPONSE. Original Note: PT REPORTS SHE LIVES AT HOME WITH HER SON HOWEVER WAS AT [facility]. SHE REPORTS SHE WAS AT [facility] SHE COULD NOT GET A BED ANYWHERE CLOSER TO HOME. HER FIRST CHOICE WAS [facility]. PT REPORTS ALTHOUGH SHE WAS NERVOUS ABOUT COMING TO A NEW AREA, THE CARE AT [facility] WAS GOOD AND SHE IS WILLING TO RETURN. SHE REQUESTS A REFERRAL TO BOTH AFOREMENTIONED FACILITIES. PT REPORTS SHE HAS NO HOME SERVICES AT [facility]. SHE USES NO DME IN THE HOME BUT USES A CANE, ROLLATOR OR WHEELCHAIR, DEPENDING ON DISTANCE, WHEN GOING OUT. PT REPORTS SHE HAS A HCP COMPLETED NAMING HER SON AND HER FRIEND HER PRIMARY AND ALTERNATE AGENTS RESPECTIVELY. PT CONFIRMS HIS PCP IS LEROY TORRES. PT REPORTS SHE DID RECEIVE THE COVID 19 VACCINE BUT CANNOT REMEMBER THE DETAILS. SHE CAN GET A COPY OF THE CARD BROUGHT IN IF NEEDED. CURRENT DC PLAN IS RETURN TO [facility] VIA BLS VS HOME WITH PT SERVICES.
--- NOTE | 2020-12-08 11:50 | P.CONCA_ITS ---
History of Present Illness History of Present Illness Date of Service: 12/08/20 [facility] Consult reason: atrial fibrillation and congestive heart failure Chief complaint: Heart failure exacerbation Narrative: I was requested to see Eloisa in cardiology consultation today for progressive bilateral leg edema as well as hypoxemia, referred [facility] to [facility]. She was admitted last week to [facility] for about 5 days with progressive shortness of breath leg edema and then subsequently having abdominal distension as per her. She was admitted and diuresed however she says she was still fluid overloaded when she was discharged to the [facility] facility and 2 days later she was referred here because she was noted to have hypoxemia. She says that she had 1st diagnosed with heart failure in 2017 and was treated at [facility] which time she had good response to therapy and was initially treated with Bumex for which she was on for 2 years. Subsequently insurance company raised her co- pay and she could not afford Bumex and switch to Lasix therapy. She also has chronic atrial fibrillation and is on warfarin therapy. She has never had histo ry of heart attack or stenting. She does not recall her LV ejection fraction. She does have chronic kidney disease and sees Dr. Hancock for it. Her heart rate is controlled. She denies any palpitations, lightheadedness, syncope. She complains of wound on the abdominal wall. She does have history of COPD. Review of Systems Constitutional: Constitutional: Denies chills, Denies fever(s) and Reports weight gain Eyes: Eyes: Reports no additional eye complaints Cardiovascular: Cardiovascular: Reports Abdominal Distension, Denies chest pain, Reports edema, Reports leg edema, Denies lightheadedness, Denies Loss of Consciousness, Reports dyspnea and Reports dyspnea on exertion Respiratory: Respiratory: Denies cough, Reports dyspnea and Reports dyspnea on exertion Gastrointestinal: Gastrointestinal: Reports no additional gastrointestinal complaints Genitourinary: Genitourinary: Reports no additional female genitourinary complaints Musculoskeletal: Musculoskeletal: Reports no additional musculoskeletal complaints Integumentary/Breasts: Skin/Breast: Reports system reviewed and no additional complaints, except as docu Neurologic: Reports system reviewed and no additional complaints, except as documented Psychiatric: Psychiatric: Reports no additional psychiatric complaints Endocrine: Endocrine: Reports no additional endocrine complaints Hematologic/Lymphatic: Hematologic/Lymphatic: Reports no additional hematolog ic/lymphatic complaints PMFSH Past Medical History Medical History A-fib CHF (congestive heart failure) CKD (chronic kidney disease) COPD (chronic obstructive pulmonary disease) Depression GERD (gastroesophageal reflux disease) Gout HTN (hypertension) Hypothyroid Obesity Pulmonary HTN Family History Family History Father Diabetes Social History Social History Household Members: Children Housing: House Do you presently have visiting nurse or other home services: No Alcohol intake: never Patient Tobacco Use Status: Former Tobacco user Quit Date: quit 20 years ago Use of substances other than those prescribed or required for medical reasons: No Have you been hit, kicked, punched, or otherwise hurt by someone within the past year? If so, by whom?: No Do you feel safe in your current relationship?: No Current Relationship Is there a partner from a previous relationship who is making you feel unsafe now?: No Are you made to feel afraid or neglected: No Advance Directives: No Advance Directives Information Provided: No Do you have thoughts of harming others: None Do you have a plan to hurt others: No Plan Recently lost weight without trying: No Nutrition Risks: No Nutritional Risk Patient : No : No Poor oral hygiene: No service: No Current occupational status: [employer] Allergies Allergy/AdvReac Type Severity Reaction Status Date / Time No Known Allergies Allergy Verified 12/07/20 09:41 Active Medications: Current Medications Acetaminophen (Acetaminophen 325 Mg Tablet) 650 mg PO Q6H PRN PRN Reason: Pain, Mild (Pain Scale 1-3) Acetaminophen (Acetaminophen 325 Mg Tablet) 650 mg PO Q4H PRN PRN Reason: pain or fever Last Admin: 12/07/20 23:20 Dose: 650 mg Documented by: Al Hydroxide/Mg Hydroxide (Magnesium Hydrox/Alum Hydrox 30 Ml Oral.Susp) 30 ml PO Q4H PRN PRN Reason: Heartburn/Nausea Albuterol Sulfate (Albuterol Sulfate 90 Mcg 8 Gm Inhaler) 1 puff INHALE Q4H PRN PRN Reason: Wheezing Allopurinol (Allopurinol 100 Mg Tablet) 100 mg PO DAILY [facility] Last Admin: 12/08/20 08:15 Dose: 100 mg Documented by: Bupropion HCl (Bupropion Hcl 75 Mg Tablet) 150 mg PO DAILY [facility] Last Admin: 12/08/20 08:15 Dose: 150 mg Documented by: Ferrous Sulfate (Ferrous Sulfate 324 Mg Tablet.) 324 mg PO DAILY [facility] Last Admin: 12/08/20 08:15 Dose: 324 mg Documented by: Fluticasone/Vilanterol (Fluticasone/Vilanterol 200/25 Blst.W.Dev) 1 puff INHALE DAILY [facility] Last Admin: 12/08/20 09:11 Dose: 1 puff Documented by: Glipizide (Glipizide Xl 2.5 Mg Tab.Er.24) 2.5 mg PO DAILY [facility] Last Admin: 12/08/20 08:15 Dose: 2.5 mg Documented by: Furosemide 200 mg/ Sodium (Chloride) 100 mls @ 2.5 mls/hr IVCONT .Q24H [facility] Levothyroxine Sodium (Levothyroxine Sodium 75 Mcg Tablet) 75 mcg PO DAILY [facility] Last Admin: 12/08/20 08:15 Dose: 75 mcg Documented by: Melatonin (Melatonin 3 Mg Tablet) 3 mg PO BEDTIME PRN PRN Reason: Insomnia Metoprolol Tartrate (Metoprolol Tartrate 25 Mg Tablet) 25 mg PO BID [facility]; Protocol Last Admin: 12/08/20 08:16 Dose: 25 mg Documented by: Multivitamins/Vitamin C (Multivitamin Tablet) 1 tab PO DAILY [facility] Last Admin: 12/08/20 08:15 Dose: 1 tab Documented by: Omeprazole (Omeprazole 20 Mg Capsule.) 20 mg PO DAILY@0600 [facility] Last Admin: 12/08/20 06:17 Dose: 20 mg Documented by: Ondansetron HCl (Ondansetron Hcl 4 Mg/2 Ml Vial) 4 mg IVPUSH Q8H PRN PRN Reason: Nausea and Vomiting Pharmacy Consult (Consult Rx Perform Med Rec) 1 each MISCELLANE ONCE PRN PRN Reason: Consult order Sildenafil Citrate (Sildenafil Citrate 20 Mg Tablet) 20 mg PO TID [facility] Last Admin: 12/08/20 08:15 Dose: 20 mg Documented by: Sodium Chloride (0.9 % Sodium Chloride Flush 3 Ml Syringe) 3 ml IVFLUSH QSHIFT [facility] Last Admin: 12/08/20 08:15 Dose: 3 ml Documented by: Tiotropium [place] (Tiotropium [place] 18 Mcg Cap.W.Dev) 1 puff INHALE DAILY [facility] Last Admin: 12/08/20 09:11 Dose: 1 puff Documented by: Warfarin Sodium (Warfarin Sodium 3 Mg Tablet) 3 mg PO DAILY@1800 [facility] Home Medications Medication Instructions Recorded Confirmed Last Taken Type acetaminophen 325 mg tablet 650 mg PO Q4H PRN 12/07/20 12/07/20 Unknown History albuterol sulfate 90 mcg/actuation 1 puff INHALATION Q4H PRN 12/07/20 12/07/20 Unknown History aerosol inhaler allopurinol 100 mg tablet 1 tab PO DAILY 12/07/20 12/07/20 12/07/20 History budesonide-formoterol HFA 160 2 puff INHALATION DAILY 12/07/20 12/07/20 12/07/20 History mcg-4.5 mcg/actuation aerosol inhaler (Symbicort) bupropion HCl 75 mg tablet 150 mg PO DAILY 12/07/20 12/07/20 12/07/20 History ferrous sulfate 325 mg (65 mg 325 mg PO DAILY 12/07/20 12/07/20 12/07/20 History iron) tablet,delayed release furosemide 40 mg tablet 40 mg PO BID 12/07/20 12/07/20 12/07/20 History glipizide 2.5 mg tablet, extended 2.5 mg PO DAILY 12/07/20 12/07/20 12/07/20 History release 24 hr guaifenesin 100 mg/5 mL oral 200 mg PO Q4H PRN 12/07/20 12/07/20 12/05/20 History liquid (Serena-Tussin) levothyroxine 75 mcg tablet 75 mcg PO DAILY 12/07/20 12/07/20 12/07/20 History metoprolol tartrate 25 mg tablet 25 mg PO BID 12/07/20 12/07/20 12/07/20 History multivitamin 1 tab PO DAILY 12/07/20 12/07/20 12/07/20 History pantoprazole 40 mg tablet,delayed 40 mg PO DAILY 12/07/20 12/07/20 12/07/20 History release sildenafil (pulm.hypertension) 20 20 mg PO TID 12/07/20 12/07/20 12/07/20 History mg tablet tiotropium bromide 18 mcg capsule 18 mcg INHALATION DAILY 12/07/20 12/07/20 12/07/20 History with inhalation device (Spiriva with HandiHaler) warfarin 2 mg tablet 2 mg PO DAILY 12/07/20 12/07/20 12/06/20 16:31 History Physical Exam Vital Signs: Vital Signs: Last Vital Signs Temp 97.5 F 12/08/20 11:05 Pulse 69 12/08/20 11:05 Resp 18 12/08/20 11:05 BP 102/60 12/08/20 11:05 Pulse Ox 94 12/08/20 11:05 Oxygen Flow Rate 2 12/07/20 09:35 Body Mass Index 38.4 Const: General: cooperative, comfortable, no acute distress, alert and awake Nutritional Appearance: obese Orientation/consciousness: patient oriented x3 HENMT: Head: Yes normocephalic and Yes atraumatic Neck: Neck: Yes trachea midline, Yes supple and Yes no JVD Chest: Chest palpation & inspection: normal inspection of the chest Resp: Effort & Inspection: decreased respiratory effort Auscultation: no rales, wheezes and diminished lung sounds Cardio: Jugular venous distension: JVD Palpation: normal PMI Rate: regular rate Rhythm: abnormal rhythm irregularly irregular Heart sounds: S1 normal heart sound present, S2 normal heart sound present, no click, no gallops and no murmurs GI: Inspection: Yes obesity Auscultation: normal bowel sounds Skin: General skin exam: no ecchymosis and other (Red and inflamed lower abdominal wall with fall smell) Neuro: General: patient oriented x3 and no focal motor deficits Extrem: General: No clubbing, No cyanosis, Yes edema and Yes venous stasis dermatitis Psych: Appearance: grossly normal Results Labs and Meds Result diagrams: 12/07/20 11:44 12/08/20 06:20 Lab results: Laboratory Results - last 24 hr 12/07/20 12/07/20 12/07/20 11:44 11:44 11:44 WBC 7.6 RBC 3.94 L Hgb 12.8 Hct 39.5 MCV 100.3 H MCH 32.5 MCHC 32.4 RDW 18.9 H Plt Count 143 L MPV 11.4 Immature Gran % (Auto) 0.4 Neut % (Auto) 80.7 H Lymph % (Auto) 6.8 L [place] % (Auto) 7.3 Eos % (Auto) 4.4 H Baso % (Auto) 0.4 Lymph # (Auto) 0.5 L [place] # (Auto) 0.6 Eos # (Auto) 0.3 Baso # (Auto) 0.0 Abs Immat Gran (auto) 0.03 Absolute Neuts (auto) 6.1 Absolute Nucleated RBC 0.000 Nucleated RBC % (auto) 0.0 PT INR Sodium 138 Potassium 4.0 Chloride 107 Carbon Dioxide 21 L Anion Gap 14 BUN 87 H* Creatinine 2.74 H Estim Creat Clear Calc 20.4 Estimated GFR 17 POC Glucose Random Glucose 108 Calcium 8.7 Total Bilirubin 2.0 H Direct Bilirubin 1.5 H AST 13 ALT 12 Alkaline Phosphatase 95 Troponin I High Sens 13.2 B-Natriuretic Peptide Total Protein 6.0 L Albumin 3.3 L Lipase 17 Urine Color Urine Appearance Urine pH Ur Specific [place] Urine Protein Urine Glucose (UA) Urine Ketones Urine Blood Urine Nitrite Ur Leukocyte Esterase Urine RBC Urine WBC Ur Squamous Epith Cells Urine Bacteria COVID-19 ([facility]) COVID-[employer] [facility] [employer] 12/07/20 12/07/20 12/07/20 11:44 11:44 16:29 WBC RBC Hgb Hct MCV MCH MCHC RDW Plt Count MPV Immature Gran % (Auto) Neut % (Auto) Lymph % (Auto) [place] % (Auto) Eos % (Auto) Baso % (Auto) Lymph # (Auto) [place] # (Auto) Eos # (Auto) Baso # (Auto) Abs Immat Gran (auto) Absolute Neuts (auto) Absolute Nucleated RBC Nucleated RBC % (auto) PT 18.0 H INR 1.6 H Sodium Potassium Chloride Carbon Dioxide Anion Gap BUN Creatinine Estim Creat Clear Calc Estimated GFR POC Glucose Random Glucose Calcium Total Bilirubin Direct Bilirubin AST ALT Alkaline Phosphatase Troponin I High Sens B-Natriuretic Peptide 2701 H Total Protein Albumin Lipase Urine Color Urine Appearance Urine pH Ur Specific [place] Urine Protein Urine Glucose (UA) Urine Ketones Urine Blood Urine Nitrite Ur Leukocyte Esterase Urine RBC Urine WBC Ur Squamous Epith Cells Urine Bacteria COVID-19 ([place]) Negative COVID-[employer] See Note 12/07/20 12/08/20 12/08/20 19:25 06:20 06:20 WBC RBC Hgb Hct MCV MCH MCHC RDW Plt Count MPV Immature Gran % (Auto) Neut % (Auto) Lymph % (Auto) [place] % (Auto) Eos % (Auto) Baso % (Auto) Lymph # (Auto) [place] # (Auto) Eos # (Auto) Baso # (Auto) Abs Immat Gran (auto) Absolute Neuts (auto) Absolute Nucleated RBC Nucleated RBC % (auto) PT INR Sodium 140 Potassium 4.4 Chloride 108 Carbon Dioxide 21 L Anion Gap 15 BUN 90 H* Creatinine 2.72 H Estim Creat Clear Calc 20.8 Estimated GFR 17 POC Glucose Random Glucose 67 Calcium 9.0 Total Bilirubin Direct Bilirubin AST ALT Alkaline Phosphatase Troponin I High Sens B-Natriuretic Peptide 2712 H Total Protein Albumin Lipase Urine Color YELLOW Urine Appearance CLEAR Urine pH 5.5 Ur Specific [place] 1.015 Urine Protein NEG Urine Glucose (UA) NEG Urine Ketones NEG Urine Blood TRACE Urine Nitrite NEG Ur Leukocyte Esterase NEG Urine RBC 1-4 Urine WBC 1-4 Ur Squamous Epith Cells 1+ Urine Bacteria 2+ COVID-19 ([place]) COVID-19 [employer] 12/08/20 12/08/20 12/08/20 06:20 07:25 10:59 WBC RBC Hgb Hct MCV MCH MCHC RDW Plt Count MPV Immature Gran % (Auto) Neut % (Auto) Lymph % (Auto) [place] % (Auto) Eos % (Auto) Baso % (Auto) Lymph # (Auto) [place] # (Auto) Eos # (Auto) Baso # (Auto) Abs Immat Gran (auto) Absolute Neuts (auto) Absolute Nucleated RBC Nucleated RBC % (auto) PT 19.5 H INR 1.7 H Sodium Potassium Chloride Carbon Dioxide Anion Gap BUN Creatinine Estim Creat Clear Calc Estimated GFR POC Glucose 79 81 Random Glucose Calcium Total Bilirubin Direct Bilirubin AST ALT Alkaline Phosphatase Troponin I High Sens B-Natriuretic Peptide Total Protein Albumin Lipase Urine Color Urine Appearance Urine pH Ur Specific [place] Urine Protein Urine Glucose (UA) Urine Ketones Urine Blood Urine Nitrite Ur Leukocyte Esterase Urine RBC Urine WBC Ur Squamous Epith Cells Urine Bacteria COVID-19 ([place]) COVID-19 [employer] Com EKG shows atrial fibrillation with complete right bundle-branch block with nonspecific ST T wave changes Assessment and Plan (1) Acute congestive heart failure: Status: Acute Patient presents with acute congestive heart failure, predominantly right- sided heart failure with marked fluid overload and worsening kidney function most likely due to cardiorenal syndrome secondary to renal venous congestion. I do not think patient has worsening renal function due to over-diuresis. At this time I would switch her to IV Lasix drip at 5 mg an hour. Strict intake and output chart needs to be pursued. Continue to monitor her renal function. Continue maximize diuresis as tolerated. Gentle diuresis to about 1-1.5 L per day he should be pursued as much as possible. Continue rate control for atrial fibrillation metoprolol. Continue warfarin therapy. Should obtain records from [facility], had echo last week fell she was admitted there. Continue oxygen supplementation. Most likely right heart failure due to left heart failure as well as possible in the severe pulmonary parenchymal disease and secondary pulmonary hypertension. She is on sildenafil which can be continued as a pulmonary vaso dilator not sure if there is significant will for it. Cannot use Aldactone therapy given her advanced kidney disease. May consider addition of Jardiance for heart failure however given her fungal infection in the abdominal wall would avoid that as this causes glucosuria. Continue supportive care. Will follow up with her. Procedures Date of Service Date of Service: 12/08/20
[2020-12-08] MEDS: Furosemide 200 MG in 0.9 % Sodium Chloride 80 ML IVCONT (11:57)
[2020-12-08] MEDS: Nystatin Powder 15 GM BOTTLE 1 APPL TOPICAL ×2 (16:05→19:47)
[2020-12-08] MEDS: Warfarin Sodium 3 MG TABLET PO (17:03)
[2020-12-09] VITALS (8 sets, daily range): BP systolic 109–139; BP diastolic 51–76; PULSE 62–69; RESP 18–20; TEMP 35.8–36.5; O2SAT 91–94; BMI 38.4
[2020-12-09] MEDS: Omeprazole 20 MG CAPSULE.DR PO (06:04)
[2020-12-09 06:59] LABS: INTERNATIONAL NORM RATIO 2.2 (0.9-1.1)
[2020-12-09 07:27] LABS: Anion Gap 17 (12-20); Blood Urea Nitrogen 91 mg/dL (9-16); Calcium 8.6 mg/dL (8.4-10.2); Carbon Dioxide 21 mmol/L (22-29); Chloride 107 mmol/L (96-108); Creatinine Clr Calc Pharmacy 20.9; Estimated Glomerular Filt Rate 17; Glucose Random 66 mg/dL (60-115); Potassium 4.2 mmol/L (3.3-5.1); Sodium 141 mmol/L (135-145)
--- NOTE | 2020-12-09 07:42 | P.CDIC_ITS ---
CDI Concurrent Query Documentation Clarification: PHYSICIAN'S DOCUMENTATION REQUEST Date of Query: 12/09/20 0742 Patient Name: Eloisa Dodd Admit Date: 12/07/20 Dear Doctor, A review of the medical record indicates additional documentation may be needed. Please review below and update the documentation accordingly. Clinical Indicators: Risk Factors/Clinical Indicators/Treatments Per MD note 12/08/20: AFIB--continue coumadin and rate control with metoprolol, adjust coumadin, INR 1.7 If possible, please provide further specificity regarding atrial fibrillation, such as: * Paroxysmal atrial fibrillation: terminates spontaneously or with intervention within 7 days of onset. * Persistent atrial fibrillation: episodes of continuous AF that last more than 7 days and do not self-terminate. * Long lasting persistent atrial fibrillation: episodes of continuous AF that last more than 12 months, * Chronic or Permanent atrial fibrillation: when a decision has been made to accept the presence of AF and there is no further attempt to restore or maintain sinus rhythm. * Other (please specify) * Unable to determine Use of terms such as suspected, likely, concern for, or probable (associated with a specific diagnosis that is being evaluated, monitored, or treated as if it exists) are acceptable and can be coded in the inpatient setting, when documented at the time of discharge. Thank you, Kay Montanez RN Extension: [phone] Please use your independent medical judgment in providing your response. THIS QUERY IS PART OF THE PERMANENT MEDICAL RECORD Provider Response: Other Other Diagnosis: Permanent AFIB
[2020-12-09] MEDS: Metoprolol Tartrate 25 MG TABLET PO ×2 (09:21→20:56)
[2020-12-09] MEDS: Ferrous Sulfate 324 MG TABLET.DR PO (09:21)
[2020-12-09] MEDS: buPROPion HCL 75 MG TABLET 150 MG PO (09:21)
[2020-12-09] MEDS: glipiZIDE XL 2.5 MG TAB.ER.24 PO (09:21)
[2020-12-09] MEDS: Multivitamin TABLET 1 TAB PO (09:22)
[2020-12-09] MEDS: 0.9 % Sodium Chloride Flush 3 ML SYRINGE IVFLUSH ×2 (09:22→20:52)
[2020-12-09] MEDS: allopurinoL 100 MG TABLET PO (09:22)
[2020-12-09] MEDS: Sildenafil Citrate 20 MG TABLET PO ×3 (09:22→20:52)
[2020-12-09] MEDS: Levothyroxine Sodium 75 MCG TABLET PO (09:22)
[2020-12-09] MEDS: Nystatin Powder 15 GM BOTTLE 1 APPL TOPICAL (09:25)
--- NOTE | 2020-12-09 09:56 | P.PNCA_ITS ---
Subjective Subjective Date of Service: 12/09/20 Interval history: still feels about the same. Review of Systems Review of Systems Yes all other systems are reviewed and are negative Cardiovascular: Reports as per HPI, Reports no additional cardiovascular complaints, Denies acrocyanosis, Denies cool extremities, Denies painful fingertips, Denies chest pain, Denies chest pain at rest, Denies diaphoresis, Denies syncope, Reports pedal edema, Denies irregular heart rhythm, Denies claudication, Denies leg edema, Denies lightheadedness, Denies palpitations and Reports dyspnea Respiratory: Reports dyspnea Denies syncope Endocrine: Denies palpitations Physical Exam Vital Signs: Last Vital Signs Temp 96.5 F L 12/09/20 07:34 Pulse 63 12/09/20 09:21 Resp 18 12/09/20 07:34 BP 110/52 L 12/09/20 09:21 Pulse Ox 91 L 12/09/20 07:34 Oxygen Flow Rate 2 12/07/20 09:35 Body Mass Index 38.4 Const General: cooperative and no acute distress [facility] Other: Unremarkable Neck Neck: Yes normal visual inspection Chest Chest palpation & inspection: normal inspection of the chest Resp Auscultation: crackles Cardio Palpation: normal PMI Heart sounds: S1 normal heart sound present, S2 normal heart sound present, no gallops, Murmur heart sound present (3/6 HSM left parasternal and apex) and no rubs GI Palpation (GI): Soft to palpation Back/Spine/Pelvis Other: unremarkable Skin General skin exam: no rashes or lesions noted Neuro Cranial nerves: Yes Other cranial nerve findings present Extrem General: Yes edema (1+ both LE with chronic changes) Psych Mental Status: other Results Labs and Meds Result diagrams: 12/07/20 11:44 12/09/20 06:23 Lab results: Laboratory Results - last 24 hr 12/08/20 12/09/20 12/09/20 10:59 06:23 06:23 PT 25.0 H D INR 2.2 H Sodium 141 Potassium 4.2 Chloride 107 Carbon Dioxide 21 L Anion Gap 17 BUN 91 H* Creatinine 2.71 H Estim Creat Clear Calc 20.9 Estimated GFR 17 POC Glucose 81 Random Glucose 66 Calcium 8.6 Progress Note: A&P Assessment and plan (1) Acute congestive heart failure: Status: Acute Assessment and Plan: [facility] Clinically, still volume overloaded. Currently on IV Lasix drip and that may be continued. Unclear if fluid balance chart is accurate, but she is only -ve 430cc since admission. Renal function is quite abnormal, but not changed much since admission. Chest xray shows diffuse emphysema and hence this might be right heart dysunction/TR secondary to that. With regard to atrial fibrillation, rate in 60s. Continue anti-coagulation. Fall Risk Details Current Medications: Current Medications Acetaminophen (Acetaminophen 325 Mg Tablet) 650 mg PO Q6H PRN PRN Reason: Pain, Mild (Pain Scale 1-3) Acetaminophen (Acetaminophen 325 Mg Tablet) 650 mg PO Q4H PRN PRN Reason: pain or fever Last Admin: 12/07/20 23:20 Dose: 650 mg Documented by: Al Hydroxide/Mg Hydroxide (Magnesium Hydrox/Alum Hydrox 30 Ml Oral.Susp) 30 ml PO Q4H PRN PRN Reason: Heartburn/Nausea Albuterol Sulfate (Albuterol Sulfate 90 Mcg 8 Gm Inhaler) 1 puff INHALE Q4H PRN PRN Reason: Wheezing Allopurinol (Allopurinol 100 Mg Tablet) 100 mg PO DAILY [facility] Last Admin: 12/09/20 09:22 Dose: 100 mg Documented by: Bupropion HCl (Bupropion Hcl 75 Mg Tablet) 150 mg PO DAILY [facility] Last Admin: 12/09/20 09:21 Dose: 150 mg Documented by: Ferrous Sulfate (Ferrous Sulfate 324 Mg Tablet.Dr) 324 mg PO DAILY [facility] Last Admin: 12/09/20 09:21 Dose: 324 mg Documented by: Fluticasone/Vilanterol (Fluticasone/Vilanterol 200/25 Blst.W.Dev) 1 puff INHALE DAILY [facility] Last Admin: 12/09/20 09:06 Dose: Not Given Documented by: Glipizide (Glipizide Xl 2.5 Mg Tab.Er.24) 2.5 mg PO DAILY [facility] Last Admin: 12/09/20 09:21 Dose: 2.5 mg Documented by: Furosemide 200 mg/ Sodium (Chloride) 100 mls @ 2.5 mls/hr IVCONT .Q24H [facility] Last Admin: 12/08/20 11:57 Dose: 5 mg/hr, 2.5 mls/hr Documented by: Levothyroxine Sodium (Levothyroxine Sodium 75 Mcg Tablet) 75 mcg PO DAILY [facility] Last Admin: 12/09/20 09:22 Dose: 75 mcg Documented by: Melatonin (Melatonin 3 Mg Tablet) 3 mg PO BEDTIME PRN PRN Reason: Insomnia Metoprolol Tartrate (Metoprolol Tartrate 25 Mg Tablet) 25 mg PO BID [facility]; Protocol Last Admin: 12/09/20 09:21 Dose: 25 mg Documented by: Multivitamins/Vitamin C (Multivitamin Tablet) 1 tab PO DAILY [facility] Last Admin: 12/09/20 09:22 Dose: 1 tab Documented by: Nystatin (Nystatin Powder 15 Gm Bottle) 1 appl TOPICAL BID [facility]; Protocol Last Admin: 12/09/20 09:25 Dose: 1 appl Documented by: Omeprazole (Omeprazole 20 Mg Capsule.Dr) 20 mg PO DAILY@0600 [facility] Last Admin: 12/09/20 06:04 Dose: 20 mg Documented by: Ondansetron HCl (Ondansetron Hcl 4 Mg/2 Ml Vial) 4 mg IVPUSH Q8H PRN PRN Reason: Nausea and Vomiting Pharmacy Consult (Consult Rx Perform Med Rec) 1 each MISCELLANE ONCE PRN PRN Reason: Consult order Sildenafil Citrate (Sildenafil Citrate 20 Mg Tablet) 20 mg PO TID [facility] Last Admin: 12/09/20 09:22 Dose: 20 mg Documented by: Sodium Chloride (0.9 % Sodium Chloride Flush 3 Ml Syringe) 3 ml IVFLUSH QSHIFT [facility] Last Admin: 12/09/20 09:22 Dose: 3 ml Documented by: Tiotropium [place] (Tiotropium [place] 18 Mcg Cap.W.Dev) 1 puff INHALE DAILY [facility] Last Admin: 12/09/20 09:07 Dose: Not Given Documented by: Warfarin Sodium (Warfarin Sodium 3 Mg Tablet) 3 mg PO DAILY@1800 [facility] Last Admin: 12/08/20 17:03 Dose: 3 mg Documented by: Time Spent With Patient Time: Total time spent is greater than 50% in coordination of care (as documented) at patient's floor/unit and/or counseling patient: Time with patient: less than 15 minutes Procedures Date of Service Date of Service: 12/09/20
--- NOTE | 2020-12-09 10:50 | P.PNIM_ITS ---
Subjective Subjective Date of Service: 12/10/20 Interval History: Seen in f/u for exacerbation of heart failure, She feels better today Review of Systems Gen:?no fever Resp:?no sob, no cough CV:?no chest, +RAE, + leg edema GI:?No n/v, no abd pain Neuro:?No confusion Constitutional General: AO X 3, no acute distress Resp:? CTA bilateral CVS: S1,S2, iregular iregular, no JVD, 1+ leg edema GI: +BS, NT, no distention Skin: fungal rash on skin Neuro:? motor grossly intact Psych: appropriate affect ? Physical Exam Vital Signs: Vital Signs: Last Vital Signs Temp 96.5 F L 12/09/20 07:34 Pulse 63 12/09/20 09:21 Resp 18 12/09/20 07:34 BP 110/52 L 12/09/20 09:21 Pulse Ox 91 L 12/09/20 07:34 Oxygen Flow Rate 2 12/07/20 09:35 Body Mass Index 38.4 Objective Data Active Medications Acetaminophen (Acetaminophen 325 Mg Tablet) 650 mg PO Q6H PRN PRN Reason: Pain, Mild (Pain Scale 1-3) Acetaminophen (Acetaminophen 325 Mg Tablet) 650 mg PO Q4H PRN PRN Reason: pain or fever Last Admin: 12/07/20 23:20 Dose: 650 mg Documented by: JASMIN Al Hydroxide/Mg Hydroxide (Magnesium Hydrox/Alum Hydrox 30 Ml Oral.Susp) 30 ml PO Q4H PRN PRN Reason: Heartburn/Nausea Albuterol Sulfate (Albuterol Sulfate 90 Mcg 8 Gm Inhaler) 1 puff INHALE Q4H PRN PRN Reason: Wheezing Allopurinol (Allopurinol 100 Mg Tablet) 100 mg PO DAILY [facility] Last Admin: 12/09/20 09:22 Dose: 100 mg Documented by: NAOMI Bupropion HCl (Bupropion Hcl 75 Mg Tablet) 150 mg PO DAILY [facility] Last Admin: 12/09/20 09:21 Dose: 150 mg Documented by: NAOMI Ferrous Sulfate (Ferrous Sulfate 324 Mg Tablet.) 324 mg PO DAILY [facility] Last Admin: 12/09/20 09:21 Dose: 324 mg Documented by: NAOMI Fluticasone/Vilanterol (Fluticasone/Vilanterol 200/25 Blst.W.Dev) 1 puff INHALE DAILY [facility] Last Admin: 12/09/20 09:06 Dose: Not Given Documented by: SABINA Non-Admin Reason: pt eating Glipizide (Glipizide Xl 2.5 Mg Tab.Er.24) 2.5 mg PO DAILY [facility] Last Admin: 12/09/20 09:21 Dose: 2.5 mg Documented by: NAOMI Furosemide 200 mg/ Sodium (Chloride) 100 mls @ 2.5 mls/hr IVCONT .Q24H [facility] Last Admin: 12/08/20 11:57 Dose: 5 mg/hr, 2.5 mls/hr Documented by: AZIZA Levothyroxine Sodium (Levothyroxine Sodium 75 Mcg Tablet) 75 mcg PO DAILY [facility] Last Admin: 12/09/20 09:22 Dose: 75 mcg Documented by: NAOMI Melatonin (Melatonin 3 Mg Tablet) 3 mg PO BEDTIME PRN PRN Reason: Insomnia Metoprolol Tartrate (Metoprolol Tartrate 25 Mg Tablet) 25 mg PO BID [facility]; Protocol Last Admin: 12/09/20 09:21 Dose: 25 mg Documented by: NAOMI Multivitamins/Vitamin C (Multivitamin Tablet) 1 tab PO DAILY [facility] Last Admin: 12/09/20 09:22 Dose: 1 tab Documented by: NAOMI Nystatin (Nystatin Powder 15 Gm Bottle) 1 appl TOPICAL BID [facility]; Protocol Last Admin: 12/09/20 09:25 Dose: 1 appl Documented by: NAOMI Omeprazole (Omeprazole 20 Mg Capsule.) 20 mg PO DAILY@0600 [facility] Last Admin: 12/09/20 06:04 Dose: 20 mg Documented by: JOHNY Ondansetron HCl (Ondansetron Hcl 4 Mg/2 Ml Vial) 4 mg IVPUSH Q8H PRN PRN Reason: Nausea and Vomiting Pharmacy Consult (Consult Rx Perform Med Rec) 1 each MISCELLANE ONCE PRN PRN Reason: Consult order Sildenafil Citrate (Sildenafil Citrate 20 Mg Tablet) 20 mg PO TID [facility] Last Admin: 12/09/20 09:22 Dose: 20 mg Documented by: NAOMI Sodium Chloride (0.9 % Sodium Chloride Flush 3 Ml Syringe) 3 ml IVFLUSH QSHIFT [facility] Last Admin: 12/09/20 09:22 Dose: 3 ml Documented by: NAOMI Tiotropium [place] (Tiotropium [place] 18 Mcg Cap.W.Dev) 1 puff INHALE DAILY [facility] Last Admin: 12/09/20 09:07 Dose: Not Given Documented by: SABINA Non-Admin Reason: pt eating Warfarin Sodium (Warfarin Sodium 3 Mg Tablet) 3 mg PO DAILY@1800 [facility] Last Admin: 12/08/20 17:03 Dose: 3 mg Documented by: AZIZA Labs CBC & Chem 7: 12/07/20 11:44 12/10/20 05:54 Labs: Laboratory Results - last 24 hr 12/08/20 12/09/20 12/09/20 10:59 06:23 06:23 PT 25.0 H D INR 2.2 H Anion Gap 17 Estim Creat Clear Calc 20.9 Estimated GFR 17 POC Glucose 81 Random Glucose 66 Calcium 8.6 Assessment and Plan (1) Congestive heart failure: Status: Acute (2) Acute on chronic kidney failure: Status: Acute Assessment and Plan: ?80 year old female with chronc heart failure, likely systolic, HTN, HLD, AFIB, CKD 4, recent hospitalization at [facility] for heart failure exacerbation and here with yet another exacerbation of heart failure.? #Acute on chronic congestive heart failure, I suspect systolic in nature., no signficant change -IV diuretics (Lasisx) continuous -thus far negative 430 ml -Cardiology following -echo today -Follow I/O, weight, salt, and trend BNP. There is no evidence of ischemia #COPD--there is no acute exacerbation, bronchodilators PRN #Chronic AFIB--continue coumadin and rate control with metoprolol, adjust coumadin, INR 2.2, reduce coumadin to 2 #CKD with SAM and cardiorenal syndrome consult Dr. Donna Hancock, BUN/CRe at [facility] 12/06 was 79/2.49, today 91/2.71D #Hypothyroidism--levothyroxine #Cutaneou alisson--Nystatin powder and oral difflucan given that is very extensive DVT--Coumadin Quality Stroke Does the patient have a stroke diagnosis?: No VTE Prior VTE?: No VTE Risk Level:: Medical - moderate - high VTE Device Contraindication: Treatment Not Indicated VTE Drug Contraindication: N/A - Med Ordered
--- NOTE | 2020-12-09 12:20 | PC.NURSE ---
Skin assessment completed today. Patient has small stage 2 pressure ulcers to left and right heels and to sacrum. Triad applied to all ulcers covered with foam dressing. Booties also applied to bilateral feet. Patient also has blanchable redness to bilateral buttocks and coccyx. Fungal rash under right breast and right and left groin. Interdry applied in groin and breast. Barrier cream applied to buttocks and coccyx. Bruise to right hip-healing. No other skin issues noted at this time.
[2020-12-09] MEDS: Furosemide 200 MG in 0.9 % Sodium Chloride 80 ML IVCONT (12:35)
--- NOTE | 2020-12-09 12:47 | MHC.CM.PN ---
per rounds dc plan remains retrun to [facility] when medically stable no dc date at this time
[2020-12-09] MEDS: Warfarin Sodium 3 MG TABLET PO (17:14)
[2020-12-09] MEDS: Acetaminophen 325 MG TABLET 650 MG PO (20:56)
[2020-12-10] VITALS (7 sets, daily range): BP systolic 97–114; BP diastolic 44–63; PULSE 60–84; RESP 14–20; TEMP 36.1–37; O2SAT 3–95
[2020-12-10] MEDS: Omeprazole 20 MG CAPSULE.DR PO (05:33)
[2020-12-10 07:03] LABS: Anion Gap 15 (12-20); Blood Urea Nitrogen 89 mg/dL (9-16); Calcium 8.3 mg/dL (8.4-10.2); Carbon Dioxide 22 mmol/L (22-29); Chloride 107 mmol/L (96-108); Creatinine Clr Calc Pharmacy 20.1; Estimated Glomerular Filt Rate 16; Glucose Random 67 mg/dL (60-115); Potassium 4.2 mmol/L (3.3-5.1); Sodium 140 mmol/L (135-145)
--- NOTE | 2020-12-10 07:07 | P.PNIM_ITS ---
Subjective Subjective Date of Service: 12/10/20 Interval History: Seen in f/u for exacerbation of heart failure, She has no shortness of breath Review of Systems Gen:?no fever Resp:?no sob, no cough CV:?no chest, +RAE, + leg edema GI:?No n/v, no abd pain Neuro:?No confusion Physical Exam Vital Signs: Vital Signs: Last Vital Signs Temp 98.6 F 12/10/20 03:53 Pulse 84 12/10/20 03:53 Resp 20 12/10/20 03:53 BP 107/63 12/10/20 03:53 Pulse Ox 92 12/10/20 03:53 Oxygen Flow Rate 2 12/07/20 09:35 Body Mass Index 38.4 General: AO X 3, no acute distress Resp:? CTA bilateral CVS: S1,S2, iregular iregular, no JVD, 1+ leg edema GI: +BS, NT, no distention Skin: No rash Neuro:? motor grossly intact Psych: appropriate affect Objective Data Active Medications Acetaminophen (Acetaminophen 325 Mg Tablet) 650 mg PO Q6H PRN PRN Reason: Pain, Mild (Pain Scale 1-3) Last Admin: 12/09/20 20:56 Dose: 650 mg Documented by: JOHNY Acetaminophen (Acetaminophen 325 Mg Tablet) 650 mg PO Q4H PRN PRN Reason: pain or fever Last Admin: 12/07/20 23:20 Dose: 650 mg Documented by: JASMIN Al Hydroxide/Mg Hydroxide (Magnesium Hydrox/Alum Hydrox 30 Ml Oral.Susp) 30 ml PO Q4H PRN PRN Reason: Heartburn/Nausea Albuterol Sulfate (Albuterol Sulfate 90 Mcg 8 Gm Inhaler) 1 puff INHALE Q4H PRN PRN Reason: Wheezing Allopurinol (Allopurinol 100 Mg Tablet) 100 mg PO DAILY [facility] Last Admin: 12/09/20 09:22 Dose: 100 mg Documented by: NAOMI Bupropion HCl (Bupropion Hcl 75 Mg Tablet) 150 mg PO DAILY [facility] Last Admin: 12/09/20 09:21 Dose: 150 mg Documented by: NAOMI Ferrous Sulfate (Ferrous Sulfate 324 Mg Tablet.Dr) 324 mg PO DAILY [facility] Last Admin: 12/09/20 09:21 Dose: 324 mg Documented by: NAOMI Fluconazole (Fluconazole 50 Mg Tablet) 50 mg PO DAILY [facility] Last Admin: 12/09/20 12:35 Dose: 50 mg Documented by: NAOMI Fluticasone/Vilanterol (Fluticasone/Vilanterol 200/25 Blst.W.Dev) 1 puff INHALE DAILY [facility] Last Admin: 12/09/20 09:06 Dose: Not Given Documented by: SABINA Non-Admin Reason: pt eating Glipizide (Glipizide Xl 2.5 Mg Tab.Er.24) 2.5 mg PO DAILY [facility] Last Admin: 12/09/20 09:21 Dose: 2.5 mg Documented by: NAOMI Furosemide 200 mg/ Sodium (Chloride) 100 mls @ 2.5 mls/hr IVCONT .Q24H [facility] Last Admin: 12/09/20 12:35 Dose: 5 mg/hr, 2.5 mls/hr Documented by: NAOMI Levothyroxine Sodium (Levothyroxine Sodium 75 Mcg Tablet) 75 mcg PO DAILY [facility] Last Admin: 12/09/20 09:22 Dose: 75 mcg Documented by: NAOMI Melatonin (Melatonin 3 Mg Tablet) 3 mg PO BEDTIME PRN PRN Reason: Insomnia Metoprolol Tartrate (Metoprolol Tartrate 25 Mg Tablet) 25 mg PO BID [facility]; Protocol Last Admin: 12/09/20 20:56 Dose: 25 mg Documented by: JOHNY Multivitamins/Vitamin C (Multivitamin Tablet) 1 tab PO DAILY [facility] Last Admin: 12/09/20 09:22 Dose: 1 tab Documented by: NAOMI Nystatin (Nystatin Powder 15 Gm Bottle) 1 appl TOPICAL BID [facility]; Protocol Last Admin: 12/09/20 21:00 Dose: Not Given Documented by: JOHNY Non-Admin Reason: Previously Administered Omeprazole (Omeprazole 20 Mg Capsule.) 20 mg PO DAILY@0600 [facility] Last Admin: 12/10/20 05:33 Dose: 20 mg Documented by: JOHNY Ondansetron HCl (Ondansetron Hcl 4 Mg/2 Ml Vial) 4 mg IVPUSH Q8H PRN PRN Reason: Nausea and Vomiting Pharmacy Consult (Consult Rx Perform Med Rec) 1 each MISCELLANE ONCE PRN PRN Reason: Consult order Sildenafil Citrate (Sildenafil Citrate 20 Mg Tablet) 20 mg PO TID [facility] Last Admin: 12/09/20 20:52 Dose: 20 mg Documented by: JOHNY Sodium Chloride (0.9 % Sodium Chloride Flush 3 Ml Syringe) 3 ml IVFLUSH QSHIFT [facility] Last Admin: 12/09/20 20:52 Dose: 3 ml Documented by: JOHNY Tiotropium [place] (Tiotropium [place] 18 Mcg Cap.W.Dev) 1 puff INHALE DAILY [facility] Last Admin: 12/09/20 09:07 Dose: Not Given Documented by: SABINA Non-Admin Reason: pt eating Warfarin Sodium (Warfarin Sodium 3 Mg Tablet) 3 mg PO DAILY@1800 [facility] Last Admin: 12/09/20 17:14 Dose: 3 mg Documented by: NAOMI Labs CBC & Chem 7: 12/07/20 11:44 12/10/20 05:54 Labs: Laboratory Results - last 24 hr 12/09/20 12/10/20 06:23 05:54 Anion Gap 17 15 Estim Creat Clear Calc 20.9 20.1 Estimated GFR 17 16 Random Glucose 66 67 Calcium 8.6 8.3 L Assessment and Plan (1) Congestive heart failure: Status: Acute (2) Acute on chronic kidney failure: Status: Acute Assessment and Plan: ?80 year old female with chronc heart failure, likely systolic, HTN, HLD, AFIB, CKD 4, recent hospitalization at [facility] for heart failure exacerbation and here with yet another exacerbation of heart failure.? #Acute on chronic congestive heart failure, I suspect systolic in nature., no si gnficant change -IV diuretics (Lasisx) continuous -thus far negative 1000 ml -Cardiology following -echo today -Follow I/O, weight, salt, and trend BNP. There is no evidence of ischemia #COPD--there is no acute exacerbation, bronchodilators PRN #Chronic AFIB--continue coumadin and rate control with metoprolol, adjust coumadin, INR 2.2, reduce coumadin to 2 #CKD with SAM and cardiorenal syndrome consult Dr. Donna Hancock, BUN/CRe at [facility] 12/06 was 79/2.49, Bun/Creatinine pending today, #Hypothyroidism--levothyroxine #Cutaneou alisson--Nystatin powder and oral difflucan given that it is very e xtensive DVT--Coumadin Quality Stroke Does the patient have a stroke diagnosis?: No VTE Prior VTE?: No VTE Risk Level:: Medical - moderate - high VTE Device Contraindication: Treatment Not Indicated VTE Drug Contraindication: N/A - Med Ordered
[2020-12-10 07:11] LABS: INTERNATIONAL NORM RATIO 2.9 (0.9-1.1); Prothrombin Time 33.2 SEC (9.9-13.0)
[2020-12-10] MEDS: Fluticasone/Vilanterol 200/25 BLST.W.DEV 1 PUFF INHALE (07:29)
[2020-12-10] MEDS: allopurinoL 100 MG TABLET PO (08:53)
[2020-12-10] MEDS: buPROPion HCL 75 MG TABLET 150 MG PO (08:54)
[2020-12-10] MEDS: glipiZIDE XL 2.5 MG TAB.ER.24 PO (08:55)
[2020-12-10] MEDS: Levothyroxine Sodium 75 MCG TABLET PO (08:55)
[2020-12-10] MEDS: Multivitamin TABLET 1 TAB PO (08:55)
[2020-12-10] MEDS: Metoprolol Tartrate 25 MG TABLET PO ×2 (08:56→19:46)
[2020-12-10] MEDS: Ferrous Sulfate 324 MG TABLET.DR PO (08:57)
[2020-12-10] MEDS: Sildenafil Citrate 20 MG TABLET PO ×3 (08:57→19:46)
[2020-12-10] MEDS: Nystatin Powder 15 GM BOTTLE 1 APPL TOPICAL ×2 (08:59→19:46)
--- NOTE | 2020-12-10 11:31 | P.PNCA_ITS ---
Subjective Subjective Date of Service: 12/10/20 Interval history: Still feels about the same. Review of Systems Review of Systems Yes all other systems are reviewed and are negative Cardiovascular: Reports as per HPI, Reports no additional cardiovascular complaints, Denies acrocyanosis, Denies cool extremities, Denies painful fingertips, Denies chest pain, Denies chest pain at rest, Denies diaphoresis, Denies syncope, Reports pedal edema, Denies irregular heart rhythm, Denies claudication, Denies leg edema, Denies lightheadedness, Denies palpitations and Reports dyspnea Respiratory: Reports dyspnea Denies syncope Endocrine: Denies palpitations Physical Exam Vital Signs: Last Vital Signs Temp 97.5 F 12/10/20 08:00 Pulse 61 12/10/20 08:56 Resp 18 12/10/20 08:00 BP 114/59 L 12/10/20 08:56 Pulse Ox 95 12/10/20 08:00 Oxygen Flow Rate 2 12/07/20 09:35 Body Mass Index 38.4 Const General: cooperative and no acute distress [facility] Other: Unremarkable Neck Neck: Yes normal visual inspection Chest Chest palpation & inspection: normal inspection of the chest Resp Auscultation: crackles Cardio Palpation: normal PMI Heart sounds: S1 normal heart sound present, S2 normal heart sound present, no gallops, Murmur heart sound present (3/6 HSM left parasternal and apex) and no rubs GI Palpation (GI): Soft to palpation Back/Spine/Pelvis Other: unremarkable Skin General skin exam: no rashes or lesions noted Neuro Cranial nerves: Yes Other cranial nerve findings present Extrem General: Yes edema (1-2+ both LE with chronic changes) Psych Mental Status: other Results Labs and Meds Result diagrams: 12/07/20 11:44 12/10/20 05:54 Lab results: Laboratory Results - last 24 hr 12/10/20 12/10/20 05:54 05:54 PT 33.2 H D INR 2.9 H Sodium 140 Potassium 4.2 Chloride 107 Carbon Dioxide 22 Anion Gap 15 BUN 89 H* Creatinine 2.82 H Estim Creat Clear Calc 20.1 Estimated GFR 16 Random Glucose 67 Calcium 8.3 L Progress Note: A&P Assessment and plan (1) Acute congestive heart failure: Status: Acute (2) Acute on chronic right-sided heart failure: Status: Acute (3) Non-rheumatic tricuspid valve insufficiency: Status: Acute (4) Pulmonary HTN: Status: Acute (5) Persistent atrial fibrillation: Status: Acute Assessment and Plan: Chest x-ray shows diffuse emphysematous changes. Recent echocardiogram from [facility] show severe biatrial enlargement; LVEF 65% with moderate LVH; dilated righ t ventricle with severe tricuspid regurgitation and severe pulmonary hypertension with RVSP greater than 80 mmHg. Overall, this could be chronic right ventricular failure related to intrinsic pulmonary disease with acute worsening. She is already on a Lasix drip. We can add metolazone to this. B aseline chronic kidney disease and renal consultation is also pending. Prognosis guarded. With regard to atrial fibrillation, rate controlled. Continue beta blockers/anti-coagulation. Fall Risk Details Current Medications: Current Medications Acetaminophen (Acetaminophen 325 Mg Tablet) 650 mg PO Q6H PRN PRN Reason: Pain, Mild (Pain Scale 1-3) Last Admin: 12/09/20 20:56 Dose: 650 mg Documented by: Acetaminophen (Acetaminophen 325 Mg Tablet) 650 mg PO Q4H PRN PRN Reason: pain or fever Last Admin: 12/07/20 23:20 Dose: 650 mg Documented by: Al Hydroxide/Mg Hydroxide (Magnesium Hydrox/Alum Hydrox 30 Ml Oral.Susp) 30 ml PO Q4H PRN PRN Reason: Heartburn/Nausea Albuterol Sulfate (Albuterol Sulfate 90 Mcg 8 Gm Inhaler) 1 puff INHALE Q4H PRN PRN Reason: Wheezing Allopurinol (Allopurinol 100 Mg Tablet) 100 mg PO DAILY [facility] Last Admin: 12/10/20 08:53 Dose: 100 mg Documented by: Bupropion HCl (Bupropion Hcl 75 Mg Tablet) 150 mg PO DAILY [facility] Last Admin: 12/10/20 08:54 Dose: 150 mg Documented by: Ferrous Sulfate (Ferrous Sulfate 324 Mg Tablet.Dr) 324 mg PO DAILY [facility] Last Admin: 12/10/20 08:57 Dose: 324 mg Documented by: Fluconazole (Fluconazole 50 Mg Tablet) 50 mg PO DAILY [facility] Last Admin: 12/10/20 08:58 Dose: 50 mg Documented by: Fluticasone/Vilanterol (Fluticasone/Vilanterol 200/25 Blst.W.Dev) 1 puff INHALE DAILY [facility] Last Admin: 12/10/20 07:29 Dose: 1 puff Documented by: Glipizide (Glipizide Xl 2.5 Mg Tab.Er.24) 2.5 mg PO DAILY [facility] Last Admin: 12/10/20 08:55 Dose: 2.5 mg Documented by: Furosemide 200 mg/ Sodium (Chloride) 100 mls @ 2.5 mls/hr IVCONT .Q24H [facility] Last Admin: 12/09/20 12:35 Dose: 5 mg/hr, 2.5 mls/hr Documented by: Levothyroxine Sodium (Levothyroxine Sodium 75 Mcg Tablet) 75 mcg PO DAILY [facility] Last Admin: 12/10/20 08:55 Dose: 75 mcg Documented by: Melatonin (Melatonin 3 Mg Tablet) 3 mg PO BEDTIME PRN PRN Reason: Insomnia Metoprolol Tartrate (Metoprolol Tartrate 25 Mg Tablet) 25 mg PO BID [facility]; Protocol Last Admin: 12/10/20 08:56 Dose: 25 mg Documented by: Multivitamins/Vitamin C (Multivitamin Tablet) 1 tab PO DAILY [facility] Last Admin: 12/10/20 08:55 Dose: 1 tab Documented by: Nystatin (Nystatin Powder 15 Gm Bottle) 1 appl TOPICAL BID [facility]; Protocol Last Admin: 12/10/20 08:59 Dose: 1 appl Documented by: Omeprazole (Omeprazole 20 Mg Capsule.Dr) 20 mg PO DAILY@0600 [facility] Last Admin: 12/10/20 05:33 Dose: 20 mg Documented by: Ondansetron HCl (Ondansetron Hcl 4 Mg/2 Ml Vial) 4 mg IVPUSH Q8H PRN PRN Reason: Nausea and Vomiting Pharmacy Consult (Consult Rx Perform Med Rec) 1 each MISCELLANE ONCE PRN PRN Reason: Consult order Sildenafil Citrate (Sildenafil Citrate 20 Mg Tablet) 20 mg PO TID [facility] Last Admin: 12/10/20 08:57 Dose: 20 mg Documented by: Sodium Chloride (0.9 % Sodium Chloride Flush 3 Ml Syringe) 3 ml IVFLUSH QSHIFT [facility] Last Admin: 12/10/20 09:06 Dose: Not Given Documented by: Tiotropium [place] (Tiotropium [place] 18 Mcg Cap.W.Dev) 1 puff INHALE DAILY [facility] Last Admin: 12/10/20 07:29 Dose: 1 puff Documented by: Warfarin Sodium (Warfarin Sodium 3 Mg Tablet) 3 mg PO DAILY@1800 [facility] Last Admin: 12/09/20 17:14 Dose: 3 mg Documented by: Time Spent With Patient Time: Total time spent is greater than 50% in coordination of care (as documented) at patient's floor/unit and/or counseling patient: Time with patient: less than 15 minutes Progress Note: Quality Stroke Does the patient have a stroke diagnosis?: No Procedures Date of Service Date of Service: 12/10/20
[2020-12-10] MEDS: metOLazone 5 MG TABLET PO (12:42)
[2020-12-10] MEDS: Furosemide 200 MG in 0.9 % Sodium Chloride 80 ML IVCONT (14:41)
[2020-12-10] MEDS: Warfarin Sodium 2 MG TABLET PO (18:04)
[2020-12-11] VITALS (9 sets, daily range): BP systolic 97–142; BP diastolic 55–73; PULSE 55–87; RESP 16–18; TEMP 36–37; O2SAT 90–96; BMI 37.8
[2020-12-11] MEDS: Omeprazole 20 MG CAPSULE.DR PO (05:22)
[2020-12-11] MEDS: Fluticasone/Vilanterol 200/25 BLST.W.DEV 1 PUFF INHALE (07:43)
[2020-12-11 08:42] LABS: INTERNATIONAL NORM RATIO 3.5 (0.9-1.1); Prothrombin Time 40.7 SEC (9.9-13.0)
[2020-12-11 09:05] LABS: Anion Gap 14 (12-20); Blood Urea Nitrogen 93 mg/dL (9-16); Calcium 8.4 mg/dL (8.4-10.2); Carbon Dioxide 24 mmol/L (22-29); Chloride 106 mmol/L (96-108); Creatinine Clr Calc Pharmacy 20.1; Estimated Glomerular Filt Rate 16; Glucose Random 50 mg/dL (60-115); Potassium 4.1 mmol/L (3.3-5.1); Sodium 140 mmol/L (135-145)
[2020-12-11] MEDS: Sildenafil Citrate 20 MG TABLET PO ×3 (09:27→22:02)
[2020-12-11] MEDS: Multivitamin TABLET 1 TAB PO (09:27)
[2020-12-11] MEDS: Levothyroxine Sodium 75 MCG TABLET PO (09:27)
[2020-12-11] MEDS: glipiZIDE XL 2.5 MG TAB.ER.24 PO (09:27)
[2020-12-11] MEDS: Ferrous Sulfate 324 MG TABLET.DR PO (09:28)
[2020-12-11] MEDS: buPROPion HCL 75 MG TABLET 150 MG PO (09:28)
[2020-12-11] MEDS: Metoprolol Tartrate 25 MG TABLET PO ×2 (09:28→22:02)
[2020-12-11] MEDS: Nystatin Powder 15 GM BOTTLE 1 APPL TOPICAL ×2 (09:29→22:03)
[2020-12-11] MEDS: allopurinoL 100 MG TABLET PO (09:29)
--- NOTE | 2020-12-11 10:04 | PM.PNNEP ---
Subjective Subjective Date of Service: 12/12/20 Interval history: Events noted Feeling a little better today. Breathing is better I/O s noted Physical Exam Vital Signs: Vital Signs: Last Vital Signs Temp 97.8 F 12/11/20 07:13 Pulse 87 12/11/20 09:28 Resp 18 12/11/20 07:13 BP 142/60 H 12/11/20 09:28 Pulse Ox 96 12/11/20 07:13 Oxygen Flow Rate 2 12/07/20 09:35 Body Mass Index 37.8 Const: General: comfortable and no acute distress Orientation/consciousness: patient oriented x3 Neck: Neck: Yes supple and No lymphadenopathy Resp: Effort & Inspection: able to speak in complete sentences and no cough Auscultation: rales and rhonchi Cardio: Palpation: no palpable S3 Heart sounds: no rubs GI: Palpation (GI): Soft to palpation Auscultation: normal bowel sounds Neuro: General: patient oriented x3 Motor exam (neuro): no asterixis Extrem: Right upper extremity: edema Objective Data Labs CBC & Chem 7: 12/07/20 11:44 12/12/20 08:07 Labs: Laboratory Results - last 24 hr 12/11/20 12/11/20 08:17 08:31 PT 40.7 H INR 3.5 H Sodium 140 Potassium 4.1 Chloride 106 Carbon Dioxide 24 Anion Gap 14 BUN 93 H* Creatinine 2.78 H Estim Creat Clear Calc 20.1 Estimated GFR 16 Random Glucose 50 L* Calcium 8.4 Procedures Date of Service Date of Service: 12/11/20 Assessment & Plan Time Spent With Patient Time: Total time spent is greater than 50% in coordination of care (as documented) at patient's floor/unit and/or counseling patient: Time with patient: 15 - 24 minutes Progress Note: Quality Stroke Does the patient have a stroke diagnosis?: No
--- NOTE | 2020-12-11 10:19 | MHC.CLN ---
F/U PT WITH INCREASED NUTRITION RISK R/T PRESSURE INJURIES PO INTAKE 75-100% DIET RX: CARDIAC-APPROPRIATE PT RECEIVING ENSURE MAX BID AND TERESA TO PROMOTE WOUND HEALING SUPP TO PROVIDE 460KCALS, 65G PROTEIN MONITOR PO INTAKE AND SUPPLEMENT ACCEPTANCE
--- NOTE | 2020-12-11 11:17 | CONS_ITS ---
DATE OF SERVICE: 12/10/2020 REASON FOR CONSULTATION: I was called to see this patient to assist in the management of the patient's renal failure. HISTORY OF PRESENT ILLNESS: Eloisa is a 80-year-old woman with a history of stage 4 chronic kidney disease, and she is usually being followed by Dr. Ritesh Hancock. He was consulted on 12/08/2020, and Dr. Neri wanted me to see this patient because there has been no Nephrology consultation since 12/08/2020. lEoisa has a history of significant pulmonary hypertension and she is on sildenafil, history of biventricular failure, and she was recently hospitalized at [facility] for congestive heart failure. She was discharged to [facility], where she spent 3 days and subsequently re-admitted to [facility] with shortness of breath and leg edema. She was admitted on 12/07/2020, and currently is being diuresed with IV Lasix. Since admission, her respiration has marginally improved. She has been nonoliguric. At the time of admission, her serum creatinine was 2.72 mg/dL and over the last 2 days, the serum creatinine has been staying around 2.7 and 2.8 mg/dL. PAST MEDICAL HISTORY: Her ongoing medical problems include: 1. Stage 4 chronic kidney disease. 2. Congestive heart failure. 3. Pulmonary hypertension. 4. COPD. 5. Obesity. 6. Hypertension. 7. Hypothyroidism. 8. Gout. 9. GERD. 10. Atrial fibrillation. FAMILY HISTORY: Noncontributory to this admission. SOCIAL HISTORY: History of smoking in the past. She quit smoking more than 20 years ago. No history of any alcohol abuse. ALLERGIES: NO KNOWN DRUG ALLERGIES HAVE BEEN DOCUMENTED. HOME MEDICATIONS: Include Tylenol, albuterol, allopurinol, Symbicort, bupropion, furosemide 40 mg p.o. b.i.d., glipizide, levothyroxine, metoprolol 25 mg b.i.d., sildenafil 20 mg t.i.d., pantoprazole, tiotropium, and warfarin. All the current medications were reviewed and she is on Lasix drip at 5 mg an hour and metolazone 5 mg once on 12/10/2020. All other medications were reviewed. REVIEW OF SYSTEMS: Ju Amin had shortness of breath on admission, which is improved. No chest pain, nausea, or vomiting. No abdominal pain, diarrhea, constipation. No polyuria or polydipsia. She has leg edema, which is marginally better. All other systems were reviewed. PHYSICAL EXAMINATION: GENERAL: Eloisa is a 80-year-old woman. She is obese, lying flat in bed, comfortable, not in any distress. NECK: Supple. LUNGS: Air entry equal. Bibasilar crackles with scattered rhonchi. HEART: S1, S2 heard. No gallop. No rub. ABDOMEN: Obese, soft. Bowel sounds heard. NEURO: Alert and awake. No asterixis. No focal motor deficit. EXTREMITIES: With bilateral leg edema with chronic pigmentary changes. No clubbing. VITAL SIGNS: Blood pressure was 114/59. She is afebrile. LABORATORY DATA: As of today, sodium noted, potassium 4.2, CO2 of 22, BUN 89, creatinine 2.82, calcium 8.3. Hemoglobin on admission was 12.8, platelet count 143,000. Urinalysis showed no protein or no blood by dipstick. Chest x-ray on admission showed evidence of emphysematous changes with mild fluid overload. Echocardiogram done at [facility] last week showed severe biatrial enlargement, right greater than left, concentric left ventricular hypertrophy with EF of 65%, severe pulmonary hypertension, and severe tricuspid regurgitation and the right ventricular pressure was 80 mmHg. IMPRESSION: A 80-year-old woman with biventricular failure and stage 4 chronic kidney disease, admitted with exacerbation of congestive heart failure. At present, the renal function is close to baseline. RECOMMENDATIONS: My recommendation will be to obtain a spot urine for sodium and creatinine and protein. Keep her on a low-sodium diet. Agree with cautious diuresis. We will keep her on the Lasix drip and try to keep her in a negative balance of around 1 L per 24 hours and avoid aggressive diuresis. At present, she has no signs or symptoms of uremia. Continue to avoid nephrotoxins and avoid hypotension. Recheck hemoglobin. We will follow her as needed. Chema Qureshi MD BPA/MODL / [phone] [facility] HOSPITALMaryam
--- NOTE | 2020-12-11 11:24 | PM.PNCARD ---
Subjective Subjective Date of Service: 12/11/20 Interval history: Feels slightly better. Review of Systems Review of Systems Yes all other systems are reviewed and are negative Cardiovascular: Reports as per HPI, Reports no additional cardiovascular complaints, Denies acrocyanosis, Denies cool extremities, Denies painful fingertips, Denies chest pain, Denies chest pain at rest, Denies diaphoresis, Denies syncope, Reports pedal edema, Denies irregular heart rhythm, Denies claudication, Denies leg edema, Denies lightheadedness, Denies palpitations and Reports dyspnea Respiratory: Reports dyspnea Denies syncope Endocrine: Denies palpitations Physical Exam Vital Signs: Last Vital Signs Temp 97.2 F 12/11/20 11:07 Pulse 61 12/11/20 11:07 Resp 18 12/11/20 11:07 BP 126/73 12/11/20 11:07 Pulse Ox 93 12/11/20 11:07 Oxygen Flow Rate 2 12/07/20 09:35 Body Mass Index 37.8 Const General: cooperative and no acute distress [facility] Other: Unremarkable Neck Neck: Yes normal visual inspection Chest Chest palpation & inspection: normal inspection of the chest Resp Auscultation: crackles Cardio Palpation: normal PMI Heart sounds: S1 normal heart sound present, S2 normal heart sound present, no gallops, Murmur heart sound present (3/6 HSM left parasternal and apex) and no rubs GI Palpation (GI): Soft to palpation Back/Spine/Pelvis Other: unremarkable Skin General skin exam: no rashes or lesions noted Neuro Cranial nerves: Yes Other cranial nerve findings present Extrem General: Yes edema (1-2+ both LE with chronic changes) Psych Mental Status: other Results Labs and Meds Result diagrams: 12/07/20 11:44 12/11/20 08:17 Lab results: Laboratory Results - last 24 hr 12/11/20 12/11/20 08:17 08:31 PT 40.7 H INR 3.5 H Sodium 140 Potassium 4.1 Chloride 106 Carbon Dioxide 24 Anion Gap 14 BUN 93 H* Creatinine 2.78 H Estim Creat Clear Calc 20.1 Estimated GFR 16 Random Glucose 50 L* Calcium 8.4 Progress Note: A&P Assessment and plan (1) Acute congestive heart failure: Status: Acute (2) Acute on chronic right-sided heart failure: Status: Acute (3) Non-rheumatic tricuspid valve insufficiency: Status: Acute (4) Pulmonary HTN: Status: Acute (5) Persistent atrial fibrillation: Status: Acute Assessment and Plan: Chest x-ray shows diffuse emphysematous changes. Recent echocardiogram from [facility] show severe biatrial enlargement; LVEF 65% with moderate LVH; dilated right ventricle with severe tricuspid regurgitation and severe pulmonary hypertension with RVSP greater than 80 mmHg. Overall, this could be chronic right ventricular failure related to intrinsic pulmonary disease with acute worsening. She is already on a Lasix drip. Add metolazone to this- additional dose of 5mg today. Baseline chronic kidney disease and renal consultation is also pending. Prognosis guarded. With regard to atrial fibrillation, rate controlled. Continue beta blockers/anti-coagulation. Per I/o chart, unclear if accurate or not, but only 1.3L -ve since admission. Fall Risk Details Current Medications: Current Medications Acetaminophen (Acetaminophen 325 Mg Tablet) 650 mg PO Q6H PRN PRN Reason: Pain, Mild (Pain Scale 1-3) Last Admin: 12/09/20 20:56 Dose: 650 mg Documented by: Acetaminophen (Acetaminophen 325 Mg Tablet) 650 mg PO Q4H PRN PRN Reason: pain or fever Last Admin: 12/07/20 23:20 Dose: 650 mg Documented by: Al Hydroxide/Mg Hydroxide (Magnesium Hydrox/Alum Hydrox 30 Ml Oral.Susp) 30 ml PO Q4H PRN PRN Reason: Heartburn/Nausea Albuterol Sulfate (Albuterol Sulfate 90 Mcg 8 Gm Inhaler) 1 puff INHALE Q4H PRN PRN Reason: Wheezing Allopurinol (Allopurinol 100 Mg Tablet) 100 mg PO DAILY [facility] Last Admin: 12/11/20 09:29 Dose: 100 mg Documented by: Bupropion HCl (Bupropion Hcl 75 Mg Tablet) 150 mg PO DAILY [facility] Last Admin: 12/11/20 09:28 Dose: 150 mg Documented by: Ferrous Sulfate (Ferrous Sulfate 324 Mg Tablet.) 324 mg PO DAILY [facility] Last Admin: 12/11/20 09:28 Dose: 324 mg Documented by: Fluconazole (Fluconazole 50 Mg Tablet) 50 mg PO DAILY [facility] Last Admin: 12/11/20 09:27 Dose: 50 mg Documented by: Fluticasone/Vilanterol (Fluticasone/Vilanterol 200/25 Blst.W.Dev) 1 puff INHALE DAILY [facility] Last Admin: 12/11/20 07:43 Dose: 1 puff Documented by: Glipizide (Glipizide Xl 2.5 Mg Tab.Er.24) 2.5 mg PO DAILY [facility] Last Admin: 12/11/20 09:27 Dose: 2.5 mg Documented by: Furosemide 200 mg/ Sodium (Chloride) 100 mls @ 2.5 mls/hr IVCONT .Q24H [facility] Last Admin: 12/10/20 14:41 Dose: 5 mg/hr, 2.5 mls/hr Documented by: Levothyroxine Sodium (Levothyroxine Sodium 75 Mcg Tablet) 75 mcg PO DAILY [facility] Last Admin: 12/11/20 09:27 Dose: 75 mcg Documented by: Melatonin (Melatonin 3 Mg Tablet) 3 mg PO BEDTIME PRN PRN Reason: Insomnia Metoprolol Tartrate (Metoprolol Tartrate 25 Mg Tablet) 25 mg PO BID [facility]; Protocol Last Admin: 12/11/20 09:28 Dose: 25 mg Documented by: Multivitamins/Vitamin C (Multivitamin Tablet) 1 tab PO DAILY [facility] Last Admin: 12/11/20 09:27 Dose: 1 tab Documented by: Nystatin (Nystatin Powder 15 Gm Bottle) 1 appl TOPICAL BID [facility]; Protocol Last Admin: 12/11/20 09:29 Dose: 1 appl Documented by: Omeprazole (Omeprazole 20 Mg Capsule.Dr) 20 mg PO DAILY@0600 [facility] Last Admin: 12/11/20 05:22 Dose: 20 mg Documented by: Ondansetron HCl (Ondansetron Hcl 4 Mg/2 Ml Vial) 4 mg IVPUSH Q8H PRN PRN Reason: Nausea and Vomiting Pharmacy Consult (Consult Rx Perform Med Rec) 1 each MISCELLANE ONCE PRN PRN Reason: Consult order Sildenafil Citrate (Sildenafil Citrate 20 Mg Tablet) 20 mg PO TID [facility] Last Admin: 12/11/20 09:27 Dose: 20 mg Documented by: Sodium Chloride (0.9 % Sodium Chloride Flush 3 Ml Syringe) 3 ml IVFLUSH QSHIFT [facility] Last Admin: 12/11/20 09:29 Dose: Not Given Documented by: Tiotropium [place] (Tiotropium [place] 18 Mcg Cap.W.Dev) 1 puff INHALE DAILY [facility] Last Admin: 12/11/20 07:44 Dose: 1 puff Documented by: Warfarin Sodium (Warfarin Sodium 2 Mg Tablet) 2 mg PO DAILY@1800 [facility] Last Admin: 12/10/20 18:04 Dose: 2 mg Documented by: Time Spent With Patient Time: Total time spent is greater than 50% in coordination of care (as documented) at patient's floor/unit and/or counseling patient: Time with patient: less than 15 minutes Progress Note: Quality Stroke Does the patient have a stroke diagnosis?: No Procedures Date of Service Date of Service: 12/11/20
[2020-12-11] MEDS: metOLazone 5 MG TABLET PO (12:08)
--- NOTE | 2020-12-11 12:15 | P.PNIM_ITS ---
Subjective Subjective Date of Service: 12/11/20 Interval History: Seen in f/u for exacerbation of heart failure, She has no shortness of breath Review of Systems Gen:?no fever Resp:?no sob, no cough CV:?no chest, +RAE, + leg edema GI:?No n/v, no abd pain Physical Exam Vital Signs: Vital Signs: Last Vital Signs Temp 97.2 F 12/11/20 11:07 Pulse 61 12/11/20 11:07 Resp 18 12/11/20 11:07 BP 126/73 12/11/20 11:07 Pulse Ox 93 12/11/20 11:07 Oxygen Flow Rate 2 12/07/20 09:35 Body Mass Index 37.8 General: AO X 3, no acute distress Resp:? CTA bilateral CVS: S1,S2, iregular iregular, no JVD, 1+ leg edema GI: +BS, NT, no distention Skin: fungal skin changes at folds Neuro:? motor grossly intact Psych: appropriate affect Objective Data Active Medications Acetaminophen (Acetaminophen 325 Mg Tablet) 650 mg PO Q6H PRN PRN Reason: Pain, Mild (Pain Scale 1-3) Last Admin: 12/09/20 20:56 Dose: 650 mg Documented by: JOHNY Acetaminophen (Acetaminophen 325 Mg Tablet) 650 mg PO Q4H PRN PRN Reason: pain or fever Last Admin: 12/07/20 23:20 Dose: 650 mg Documented by: JASMIN Al Hydroxide/Mg Hydroxide (Magnesium Hydrox/Alum Hydrox 30 Ml Oral.Susp) 30 ml PO Q4H PRN PRN Reason: Heartburn/Nausea Albuterol Sulfate (Albuterol Sulfate 90 Mcg 8 Gm Inhaler) 1 puff INHALE Q4H PRN PRN Reason: Wheezing Allopurinol (Allopurinol 100 Mg Tablet) 100 mg PO DAILY [facility] Last Admin: 12/11/20 09:29 Dose: 100 mg Documented by: CINTHIA Bupropion HCl (Bupropion Hcl 75 Mg Tablet) 150 mg PO DAILY [facility] Last Admin: 12/11/20 09:28 Dose: 150 mg Documented by: CINTHIA Ferrous Sulfate (Ferrous Sulfate 324 Mg Tablet.) 324 mg PO DAILY [facility] Last Admin: 12/11/20 09:28 Dose: 324 mg Documented by: CINTHIA Fluconazole (Fluconazole 50 Mg Tablet) 50 mg PO DAILY [facility] Last Admin: 12/11/20 09:27 Dose: 50 mg Documented by: CINTHIA Fluticasone/Vilanterol (Fluticasone/Vilanterol 200/25 Blst.W.Dev) 1 puff INHALE DAILY [facility] Last Admin: 12/11/20 07:43 Dose: 1 puff Documented by: JUDI Glipizide (Glipizide Xl 2.5 Mg Tab.Er.24) 2.5 mg PO DAILY [facility] Last Admin: 12/11/20 09:27 Dose: 2.5 mg Documented by: CINTHIA Furosemide 200 mg/ Sodium (Chloride) 100 mls @ 5 mls/hr IVCONT .Q20H [facility] Levothyroxine Sodium (Levothyroxine Sodium 75 Mcg Tablet) 75 mcg PO DAILY [facility] Last Admin: 12/11/20 09:27 Dose: 75 mcg Documented by: CINTHIA Melatonin (Melatonin 3 Mg Tablet) 3 mg PO BEDTIME PRN PRN Reason: Insomnia Metoprolol Tartrate (Metoprolol Tartrate 25 Mg Tablet) 25 mg PO BID [facility]; Protocol Last Admin: 12/11/20 09:28 Dose: 25 mg Documented by: CINTHIA Multivitamins/Vitamin C (Multivitamin Tablet) 1 tab PO DAILY [facility] Last Admin: 12/11/20 09:27 Dose: 1 tab Documented by: CINTHIA Nystatin (Nystatin Powder 15 Gm Bottle) 1 appl TOPICAL BID [facility]; Protocol Last Admin: 12/11/20 09:29 Dose: 1 appl Documented by: CINTHIA Omeprazole (Omeprazole 20 Mg Capsule.Dr) 20 mg PO DAILY@0600 [facility] Last Admin: 12/11/20 05:22 Dose: 20 mg Documented by: ARSH Ondansetron HCl (Ondansetron Hcl 4 Mg/2 Ml Vial) 4 mg IVPUSH Q8H PRN PRN Reason: Nausea and Vomiting Pharmacy Consult (Consult Rx Perform Med Rec) 1 each MISCELLANE ONCE PRN PRN Reason: Consult order Sildenafil Citrate (Sildenafil Citrate 20 Mg Tablet) 20 mg PO TID [facility] Last Admin: 12/11/20 09:27 Dose: 20 mg Documented by: CINTHIA Sodium Chloride (0.9 % Sodium Chloride Flush 3 Ml Syringe) 3 ml IVFLUSH QSHIFT [facility] Last Admin: 12/11/20 09:29 Dose: Not Given Documented by: CINTHIA Non-Admin Reason: IV Running Tiotropium [place] (Tiotropium [place] 18 Mcg Cap.W.Dev) 1 puff INHALE DAILY [facility] Last Admin: 12/11/20 07:44 Dose: 1 puff Documented by: JUDI Warfarin Sodium (Warfarin Sodium 2 Mg Tablet) 2 mg PO DAILY@1800 [facility] Last Admin: 12/10/20 18:04 Dose: 2 mg Documented by: NAOMI Labs CBC & Chem 7: 12/07/20 11:44 12/11/20 08:17 Labs: Laboratory Results - last 24 hr 12/11/20 12/11/20 08:17 08:31 PT 40.7 H INR 3.5 H Anion Gap 14 Estim Creat Clear Calc 20.1 Estimated GFR 16 Random Glucose 50 L* Calcium 8.4 Assessment and Plan (1) Congestive heart failure: Status: Acute (2) Acute on chronic kidney failure: Status: Acute Assessment and Plan: ?80 year old female with chronc heart failure, likely systolic, HTN, HLD, AFIB, CKD 4, recent hospitalization at [facility] for heart failure exacerbation and here with yet another exacerbation of heart failure.? #Acute on chronic congestive heart failure, I suspect systolic in nature., no signficant change -IV diuretics (Lasisx) continuous at increase rate to 10 an hour up from 5 -thus far negative 1300 ml, which is rather modest -Cardiology following -echo today -Follow I/O, weight, salt, and trend BNP. There is no evidence of ischemia #COPD--there is no acute exacerbation, bronchodilators PRN #Chronic AFIB--continue coumadin and rate control with metoprolol, adjust coumadin, INR 2.2, reduce coumadin to 2 #CKD with SAM and cardiorenal syndrome consult Dr. Donna Hancock, BUN/CRe at [facility] 12/06 was 79/2.49, Bun/Creatinin today 93/2.78 #Hypothyroidism--levothyroxine #Cutaneou alisson--Nystatin powder and oral difflucan given that it is very extensive DVT--Coumadin Quality Stroke Does the patient have a stroke diagnosis?: No VTE Prior VTE?: No VTE Risk Level:: Medical - moderate - high VTE Device Contraindication: Treatment Not Indicated VTE Drug Contraindication: N/A - Med Ordered
[2020-12-11] MEDS: Furosemide 200 MG in 0.9 % Sodium Chloride 80 ML IVCONT (12:17)
--- NOTE | 2020-12-11 13:51 | MHC.CM.PN ---
per rounds pt remains on a lasix drip possible dc back to [facility]
[2020-12-11] MEDS: 0.9 % Sodium Chloride Flush 3 ML SYRINGE IVFLUSH (22:03)
[2020-12-12] VITALS (8 sets, daily range): BP systolic 100–122; BP diastolic 46–74; PULSE 60–85; RESP 14–19; TEMP 36.2–37.4; O2SAT 92–97; BMI 37.8
[2020-12-12] MEDS: Omeprazole 20 MG CAPSULE.DR PO (06:20)
[2020-12-12 06:51] LABS: Prothrombin Time 35.3 SEC (9.9-13.0)
[2020-12-12 09:11] LABS: Anion Gap 17 (12-20); Blood Urea Nitrogen 96 mg/dL (9-16); Calcium 8.2 mg/dL (8.4-10.2); Carbon Dioxide 21 mmol/L (22-29); Chloride 107 mmol/L (96-108); Estimated Glomerular Filt Rate 16; Potassium 3.7 mmol/L (3.3-5.1); Sodium 141 mmol/L (135-145)
[2020-12-12 09:21] LABS: Glucose Random 27 mg/dL (60-115)
--- NOTE | 2020-12-12 09:52 | P.PNNP_ITS ---
Subjective Subjective Date of Service: 12/12/20 Interval history: Feels better On Lasix drip O> I by 1.3 L Physical Exam Vital Signs: Vital Signs: Last Vital Signs Temp 97.2 F 12/12/20 07:15 Pulse 60 12/12/20 07:15 Resp 18 12/12/20 07:15 BP 107/54 L 12/12/20 07:15 Pulse Ox 93 12/12/20 07:15 Oxygen Flow Rate 2 12/07/20 09:35 Body Mass Index 37.8 Const: General: comfortable and no acute distress Or ientation/consciousness: patient oriented x3 Neck: Neck: Yes supple and No lymphadenopathy Resp: Effort & Inspection: able to speak in complete sentences and no cough Auscultation: rales and rhonchi Cardio: Palpation: no palpable S3 Heart sounds: no rubs GI: Palpation (GI): Soft to palpation Auscultation: normal bowel sounds Neuro: General: patient oriented x3 Motor exam (neuro): no asterixis Extrem: Right upper extremity: edema Objective Data Labs CBC & Chem 7: 12/07/20 11:44 12/12/20 08:07 Labs: Laboratory Results - last 24 hr 12/12/20 12/12/20 05:42 08:07 PT 35.3 H INR 3.0 H Sodium 141 Potassium 3.7 Chloride 107 Carbon Dioxide 21 L Anion Gap 17 BUN 96 H* Creatinine 2.81 H Estim Creat Clear Calc 20.0 Estimated GFR 16 Random Glucose 27 L* Calcium 8.2 L Procedures Date of Service Date of Service: 12/12/20 Assessment & Plan Assessment and plan (1) Congestive heart failure: Status: Acute (2) Acute on chronic kidney failure: Status: Acute Assessment and Plan: ?80 year old female with chronic heart failure, COPD with Pulm HTN, HLD, AFIB, CKD 4, admitted with heart failure.? CKD 4 Renal function close to baseline Mild acceptable bump in creatinine while on Lasix drip Keep O > I by 1- 2L per 24 hrs and avoid hypotension or aggressive diuresis 2 gm Na diet Shall follow with team Time Spent With Patient Time: Total time spent is greater than 50% in coordination of care (as documented) at patient's floor/unit and/or counseling patient: Time with patient: 15 - 24 minutes Progress Note: Quality Stroke Does the patient have a stroke diagnosis?: No
[2020-12-12 10:00] LABS: Glucose, Whole Blood 122 mg/dL (60-115)
--- NOTE | 2020-12-12 10:06 | PM.PNCARD ---
Subjective Subjective Date of Service: 12/12/20 Interval history: States that she feels slightly better. Review of Systems Review of Systems Yes all other systems are reviewed and are negative Cardiovascular: Reports as per HPI, Reports no additional cardiovascular complaints, Denies acrocyanosis, Denies cool extremities, Denies painful fingertips, Denies chest pain, Denies chest pain at rest, Denies diaphoresis, Denies syncope, Reports pedal edema, Denies irregular heart rhythm, Denies claudication, Denies leg edema, Denies lightheadedness, Denies palpitations and Reports dyspnea Respiratory: Reports dyspnea Denies syncope Endocrine: Denies palpitations Physical Exam Vital Signs: Last Vital Signs Temp 97.2 F 12/12/20 07:15 Pulse 60 12/12/20 07:15 Resp 18 12/12/20 07:15 BP 107/54 L 12/12/20 07:15 Pulse Ox 93 12/12/20 07:15 Oxygen Flow Rate 2 12/07/20 09:35 Body Mass Index 37.8 Const General: cooperative and no acute distress [facility] Other: Unremarkable Neck Neck: Yes normal visual inspection Chest Chest palpation & inspection: normal inspection of the chest Resp Auscultation: crackles Cardio Palpation: normal PMI Heart sounds: S1 normal heart sound present, S2 normal heart sound present, no gallops, Murmur heart sound present (3/6 HSM left parasternal and apex) and no rubs GI Palpation (GI): Soft to palpation Back/Spine/Pelvis Other: unremarkable Skin General skin exam: no rashes or lesions noted Neuro Cranial nerves: Yes Other cranial nerve findings present Extrem General: Yes edema (1-2+ both LE with chronic changes) Psych Mental Status: other Results Labs and Meds Result diagrams: 12/07/20 11:44 12/12/20 08:07 Lab results: Laboratory Results - last 24 hr 12/12/20 12/12/20 12/12/20 05:42 08:07 09:40 PT 35.3 H INR 3.0 H Sodium 141 Potassium 3.7 Chloride 107 Carbon Dioxide 21 L Anion Gap 17 BUN 96 H* Creatinine 2.81 H Estim Creat Clear Calc 20.0 Estimated GFR 16 POC Glucose 122 H Random Glucose 27 L* Calcium 8.2 L Progress Note: A&P Assessment and plan (1) Acute congestive heart failure: Status: Acute (2) Acute on chronic right-sided heart failure: Status: Acute (3) Non-rheumatic tricuspid valve insufficiency: Status: Acute (4) Pulmonary HTN: Status: Acute (5) Persistent atrial fibrillation: Status: Acute Assessment and Plan: Chest x-ray shows diffuse emphysematous changes. Recent echocardiogram from [facility] show severe biatrial enlargement; LVEF 65% with moderate LVH; dilated right ventricle with severe tricuspid regurgitation and severe pulmonary hypertension with RVSP greater than 80 mmHg. Overall, this could be chronic right ventricular failure related to intrinsic pulmonary disease with acute worsening. She is already on a Lasix drip. Dose has been increased. Also received Metolazone x 2 doses. Baseline chronic kidney disease and renal consultation noted. Overall prognosis guarded. With regard to atrial fibrillation, rate controlled. Continue beta blockers/anti-coagulation. Per I/o chart, unclear if accurate or not, but only -2.7L -ve since admission. Fall Risk Details Current Medications: Current Medications Acetaminophen (Acetaminophen 325 Mg Tablet) 650 mg PO Q6H PRN PRN Reason: Pain, Mild (Pain Scale 1-3) Last Admin: 12/09/20 20:56 Dose: 650 mg Documented by: Acetaminophen (Acetaminophen 325 Mg Tablet) 650 mg PO Q4H PRN PRN Reason: pain or fever Last Admin: 12/07/20 23:20 Dose: 650 mg Documented by: Al Hydroxide/Mg Hydroxide (Magnesium Hydrox/Alum Hydrox 30 Ml Oral.Susp) 30 ml PO Q4H PRN PRN Reason: Heartburn/Nausea Albuterol Sulfate (Albuterol Sulfate 90 Mcg 8 Gm Inhaler) 1 puff INHALE Q4H PRN PRN Reason: Wheezing Allopurinol (Allopurinol 100 Mg Tablet) 100 mg PO DAILY [facility] Last Admin: 12/11/20 09:29 Dose: 100 mg Documented by: Bupropion HCl (Bupropion Hcl 75 Mg Tablet) 150 mg PO DAILY [facility] Last Admin: 12/11/20 09:28 Dose: 150 mg Documented by: Ferrous Sulfate (Ferrous Sulfate 324 Mg Tablet.Dr) 324 mg PO DAILY [facility] Last Admin: 12/11/20 09:28 Dose: 324 mg Documented by: Fluconazole (Fluconazole 50 Mg Tablet) 50 mg PO DAILY [facility] Last Admin: 12/11/20 09:27 Dose: 50 mg Documented by: Fluticasone/Vilanterol (Fluticasone/Vilanterol 200/25 Blst.W.Dev) 1 puff INHALE DAILY [facility] Last Admin: 12/12/20 08:26 Dose: Not Given Documented by: Glipizide (Glipizide Xl 2.5 Mg Tab.Er.24) 2.5 mg PO DAILY [facility] Last Admin: 12/11/20 09:27 Dose: 2.5 mg Documented by: Furosemide 200 mg/ Sodium (Chloride) 100 mls @ 5 mls/hr IVCONT .Q20H [facility] Last Admin: 12/11/20 12:17 Dose: 10 mg/hr, 5 mls/hr Documented by: Levothyroxine Sodium (Levothyroxine Sodium 75 Mcg Tablet) 75 mcg PO DAILY [facility] Last Admin: 12/11/20 09:27 Dose: 75 mcg Documented by: Melatonin (Melatonin 3 Mg Tablet) 3 mg PO BEDTIME PRN PRN Reason: Insomnia Metoprolol Tartrate (Metoprolol Tartrate 25 Mg Tablet) 25 mg PO BID [facility]; Protocol Last Admin: 12/11/20 22:02 Dose: 25 mg Documented by: Multivitamins/Vitamin C (Multivitamin Tablet) 1 tab PO DAILY [facility] Last Admin: 12/11/20 09:27 Dose: 1 tab Documented by: Nystatin (Nystatin Powder 15 Gm Bottle) 1 appl TOPICAL BID [facility]; Protocol Last Admin: 12/11/20 22:03 Dose: 1 appl Documented by: Omeprazole (Omeprazole 20 Mg Capsule.Dr) 20 mg PO DAILY@0600 [facility] Last Admin: 12/12/20 06:20 Dose: 20 mg Documented by: Ondansetron HCl (Ondansetron Hcl 4 Mg/2 Ml Vial) 4 mg IVPUSH Q8H PRN PRN Reason: Nausea and Vomiting Pharmacy Consult (Consult Rx Perform Med Rec) 1 each MISCELLANE ONCE PRN PRN Reason: Consult order Sildenafil Citrate (Sildenafil Citrate 20 Mg Tablet) 20 mg PO TID [facility] Last Admin: 12/11/20 22:02 Dose: 20 mg Documented by: Sodium Chloride (0.9 % Sodium Chloride Flush 3 Ml Syringe) 3 ml IVFLUSH QSHIFT [facility] Last Admin: 12/11/20 22:03 Dose: 3 ml Documented by: Tiotropium [place] (Tiotropium [place] 18 Mcg Cap.W.Dev) 1 puff INHALE DAILY [facility] Last Admin: 12/12/20 08:27 Dose: Not Given Documented by: Warfarin Sodium (Warfarin Sodium 2 Mg Tablet) 2 mg PO DAILY@1800 [facility] Last Admin: 12/10/20 18:04 Dose: 2 mg Documented by: Time Spent With Patient Time: Total time spent is greater than 50% in coordination of care (as documented) at patient's floor/unit and/or counseling patient: Time with patient: less than 15 minutes Progress Note: Quality Stroke Does the patient have a stroke diagnosis?: No Procedures Date of Service Date of Service: 12/12/20
[2020-12-12] MEDS: Furosemide 200 MG in 0.9 % Sodium Chloride 80 ML IVCONT (10:26)
[2020-12-12] MEDS: Sildenafil Citrate 20 MG TABLET PO ×3 (10:29→19:45)
[2020-12-12] MEDS: Levothyroxine Sodium 75 MCG TABLET PO (10:30)
[2020-12-12] MEDS: Metoprolol Tartrate 25 MG TABLET PO ×2 (10:30→19:45)
[2020-12-12] MEDS: buPROPion HCL 75 MG TABLET 150 MG PO (10:30)
[2020-12-12] MEDS: Ferrous Sulfate 324 MG TABLET.DR PO (10:31)
[2020-12-12] MEDS: glipiZIDE XL 2.5 MG TAB.ER.24 PO (10:32)
[2020-12-12] MEDS: 0.9 % Sodium Chloride Flush 3 ML SYRINGE IVFLUSH ×2 (10:32→19:46)
[2020-12-12] MEDS: allopurinoL 100 MG TABLET PO (10:32)
[2020-12-12] MEDS: Multivitamin TABLET 1 TAB PO (10:32)
[2020-12-12] MEDS: Nystatin Powder 15 GM BOTTLE 1 APPL TOPICAL ×2 (10:33→19:46)
--- NOTE | 2020-12-12 10:36 | P.PNIM_ITS ---
Subjective Subjective Date of Service: 12/12/20 Interval History: Seen in f/u for exacerbation of heart failure, She has no shortness of breath and feels good otherwise Review of Systems no sob, weak, no fever Physical Exam Vital Signs: Vital Signs: Last Vital Signs Temp 97.2 F 12/12/20 07:15 Pulse 60 12/12/20 10:30 Resp 18 12/12/20 07:15 BP 107/54 L 12/12/20 10:30 Pulse Ox 93 12/12/20 07:15 Oxygen Flow Rate 2 12/07/20 09:35 Body Mass Index 37.8 General: AO X 3, no acute distress Resp:? CTA bilateral CVS: S1,S2, iregular iregular, no JVD, 1+ leg edema GI: +BS, NT, no distention Skin: fungal skin changes at folds Neuro:? motor grossly intact Psych: appropriate affect Objective Data Active Medications Acetaminophen (Acetaminophen 325 Mg Tablet) 650 mg PO Q6H PRN PRN Reason: Pain, Mild (Pain Scale 1-3) Last Admin: 12/09/20 20:56 Dose: 650 mg Documented by: JOHNY Acetaminophen (Acetaminophen 325 Mg Tablet) 650 mg PO Q4H PRN PRN Reason: pain or fever Last Admin: 12/07/20 23:20 Dose: 650 mg Documented by: JASMIN Al Hydroxide/Mg Hydroxide (Magnesium Hydrox/Alum Hydrox 30 Ml Oral.Susp) 30 ml PO Q4H PRN PRN Reason: Heartburn/Nausea Albuterol Sulfate (Albuterol Sulfate 90 Mcg 8 Gm Inhaler) 1 puff INHALE Q4H PRN PRN Reason: Wheezing Allopurinol (Allopurinol 100 Mg Tablet) 100 mg PO DAILY [facility] Last Admin: 12/12/20 10:32 Dose: 100 mg Documented by: CINTHIA Bupropion HCl (Bupropion Hcl 75 Mg Tablet) 150 mg PO DAILY [facility] Last Admin: 12/12/20 10:30 Dose: 150 mg Documented by: CINTHIA Ferrous Sulfate (Ferrous Sulfate 324 Mg Tablet.) 324 mg PO DAILY [facility] Last Admin: 12/12/20 10:31 Dose: 324 mg Documented by: CINTHIA Fluconazole (Fluconazole 50 Mg Tablet) 50 mg PO DAILY [facility] Last Admin: 12/12/20 10:31 Dose: 50 mg Documented by: CINTHIA Fluticasone/Vilanterol (Fluticasone/Vilanterol 200/25 Blst.W.Dev) 1 puff INHALE DAILY [facility] Last Admin: 12/12/20 08:26 Dose: Not Given Documented by: JUDI Non-Admin Reason: Patient Asleep Glipizide (Glipizide Xl 2.5 Mg Tab.Er.24) 2.5 mg PO DAILY [facility] Last Admin: 12/12/20 10:32 Dose: 2.5 mg Documented by: CINTHIA Furosemide 200 mg/ Sodium (Chloride) 100 mls @ 5 mls/hr IVCONT .Q20H [facility] Last Admin: 12/12/20 10:26 Dose: 10 mg/hr, 5 mls/hr Documented by: CINTHIA Levothyroxine Sodium (Levothyroxine Sodium 75 Mcg Tablet) 75 mcg PO DAILY [facility] Last Admin: 12/12/20 10:30 Dose: 75 mcg Documented by: CINTHIA Melatonin (Melatonin 3 Mg Tablet) 3 mg PO BEDTIME PRN PRN Reason: Insomnia Metoprolol Tartrate (Metoprolol Tartrate 25 Mg Tablet) 25 mg PO BID [facility]; Protocol Last Admin: 12/12/20 10:30 Dose: 25 mg Documented by: CINTHIA Multivitamins/Vitamin C (Multivitamin Tablet) 1 tab PO DAILY [facility] Last Admin: 12/12/20 10:32 Dose: 1 tab Documented by: CINTHIA Nystatin (Nystatin Powder 15 Gm Bottle) 1 appl TOPICAL BID [facility]; Protocol Last Admin: 12/12/20 10:33 Dose: 1 appl Documented by: CINTHIA Omeprazole (Omeprazole 20 Mg Capsule.Dr) 20 mg PO DAILY@0600 [facility] Last Admin: 12/12/20 06:20 Dose: 20 mg Documented by: JENNIFER Ondansetron HCl (Ondansetron Hcl 4 Mg/2 Ml Vial) 4 mg IVPUSH Q8H PRN PRN Reason: Nausea and Vomiting Pharmacy Consult (Consult Rx Perform Med Rec) 1 each MISCELLANE ONCE PRN PRN Reason: Consult order Sildenafil Citrate (Sildenafil Citrate 20 Mg Tablet) 20 mg PO TID [facility] Last Admin: 12/12/20 10:29 Dose: 20 mg Documented by: CINTHIA Sodium Chloride (0.9 % Sodium Chloride Flush 3 Ml Syringe) 3 ml IVFLUSH QSHIFT [facility] Last Admin: 12/12/20 10:32 Dose: 3 ml Documented by: CINTHIA Tiotropium [place] (Tiotropium [place] 18 Mcg Cap.W.Dev) 1 puff INHALE DAILY [facility] Last Admin: 12/12/20 08:27 Dose: Not Given Documented by: JUDI Non-Admin Reason: Patient Asleep Warfarin Sodium (Warfarin Sodium 2 Mg Tablet) 2 mg PO DAILY@1800 [facility] Last Admin: 12/10/20 18:04 Dose: 2 mg Documented by: NAOMI Labs CBC & Chem 7: 12/07/20 11:44 12/12/20 08:07 Labs: Laboratory Results - last 24 hr 12/12/20 12/12/20 12/12/20 05:42 08:07 09:40 PT 35.3 H INR 3.0 H Anion Gap 17 Estim Creat Clear Calc 20.0 Estimated GFR 16 POC Glucose 122 H Random Glucose 27 L* Calcium 8.2 L Assessment and Plan (1) Congestive heart failure: Status: Acute (2) Acute on chronic kidney failure: Status: Acute Assessment and Plan: ?80 year old female with chronc heart failure, likely systolic, HTN, HLD, AFIB, CKD 4, recent hospitalization at [facility] for heart failure exacerbation and here with yet another exacerbation of heart failure.? #Acute on chronic diastolic heeart failure congestive heart failure, -IV diuretics (Lasisx) continuous at increase rate to 10 an hour for 1 more day -thus far negative 2600 ml -Cardiology following -recent echo at [facility] EF 60 to 65 -Follow I/O, weight, salt, and trend BNP. There is no evidence of ischemia #COPD--there is no acute exacerbation, bronchodilators PRN #Chronic AFIB--continue coumadin and rate control with metoprolol, adjust coumadin, INR 3, continue present dose #CKD with SAM and cardiorenal syndrome consult Dr. Donna Hancock, BUN/CRe at [facility] 12/06 was 79/2.49, Bun/Creatinin today 98/2.8, no major change, not sure if will be incline to have dialysis, will discuss with patient and nephrology #Hypothyroidism--levothyroxine #Cutaneou alisson--Nystatin powder and oral difflucan given that it is very extensive DVT--Coumadin Quality Stroke Does the patient have a stroke diagnosis?: No VTE Prior VTE?: No VTE Risk Level:: Medical - moderate - high VTE Device Contraindication: Treatment Not Indicated VTE Drug Contraindication: N/A - Med Ordered
[2020-12-12 11:24] LABS: Glucose, Whole Blood 70 mg/dL (60-115)
--- NOTE | 2020-12-12 11:46 | PC.NURSE ---
Skin assessment completed. Patient's stage 2 pressure injuries to right and left heels are close to healing and the sacrum is almost healed. There is a new small wound to where the IV site was on left arm. Silver alginate applied and covered with small gauze and tape. The fungal rash in abdominal folds and groin are improving, continuing with interdry.
--- NOTE | 2020-12-12 14:22 | PC.NURSE ---
Pt had a critical value this morning, Random Blood Glucose of 22. MD ordered D50. 12.5 grams of a 50 gram vial were administered before the IV began leaking. BG was retaken; it was 122. MD notified and no more D50 was administered. The 12.5 grams were documented in the MAR.
[2020-12-12] MEDS: Warfarin Sodium 2 MG TABLET PO (18:25)
[2020-12-13] VITALS (9 sets, daily range): BP systolic 92–123; BP diastolic 54–76; PULSE 60–74; RESP 18; TEMP 36.4–36.9; O2SAT 92–98; BMI 36.7
[2020-12-13] MEDS: Furosemide 200 MG in 0.9 % Sodium Chloride 80 ML IVCONT (05:33)
--- NOTE | 2020-12-13 06:25 | PC.NURSE ---
Pt complaining of pain due to arias catheter. Arias in place but noted to be leaking. MD made aware. Arias pulled at 06:20 am. Pt still on lasix gtt at 10mg/hr. Educated on need for accurate I&O and using commode.
[2020-12-13 06:39] LABS: Anion Gap 14 (12-20); Blood Urea Nitrogen 99 mg/dL (9-16); Calcium 8.1 mg/dL (8.4-10.2); Carbon Dioxide 23 mmol/L (22-29); Chloride 107 mmol/L (96-108); Creatinine Clr Calc Pharmacy 19.2; Estimated Glomerular Filt Rate 16; Potassium 3.7 mmol/L (3.3-5.1); Sodium 140 mmol/L (135-145)
[2020-12-13 06:56] LABS: Glucose Random 51 mg/dL (60-115)
[2020-12-13] MEDS: Multivitamin TABLET 1 TAB PO (07:36)
[2020-12-13] MEDS: buPROPion HCL 75 MG TABLET 150 MG PO (07:36)
[2020-12-13] MEDS: Metoprolol Tartrate 25 MG TABLET PO ×2 (07:36→21:08)
[2020-12-13] MEDS: allopurinoL 100 MG TABLET PO (07:36)
[2020-12-13] MEDS: glipiZIDE XL 2.5 MG TAB.ER.24 PO (07:37)
[2020-12-13] MEDS: Levothyroxine Sodium 75 MCG TABLET PO (07:37)
[2020-12-13] MEDS: Ferrous Sulfate 324 MG TABLET.DR PO (07:37)
[2020-12-13] MEDS: Sildenafil Citrate 20 MG TABLET PO ×3 (07:37→21:09)
[2020-12-13] MEDS: Fluticasone/Vilanterol 200/25 BLST.W.DEV 1 PUFF INHALE (07:38)
[2020-12-13] MEDS: Nystatin Powder 15 GM BOTTLE 1 APPL TOPICAL ×2 (07:39→21:11)
[2020-12-13 08:36] LABS: INTERNATIONAL NORM RATIO 3.7 (0.9-1.1); Prothrombin Time 42.7 SEC (9.9-13.0)
--- NOTE | 2020-12-13 09:39 | PM.PNNEP ---
Subjective Subjective Date of Service: 12/30/20 Interval history: Events noted I /O s incomplete On Lasix drip Weight is down Physical Exam Vital Signs: Vital Signs: Last Vital Signs Temp 98.2 F 12/13/20 07:11 Pulse 68 12/13/20 07:36 Resp 18 12/13/20 07:11 BP 108/54 L 12/13/20 07:36 Pulse Ox 92 12/13/20 07:11 Oxygen Flow Rate 2 12/07/20 09:35 Body Mass Index 36.7 Const: General: comfortable and no acute distress Orientation/consciousness: patient oriented x3 Neck: Neck: Yes supple and No lymphadenopathy Resp: Effort & Inspection: able to speak in complete sentences and no cough Auscultation: rales and rhonchi Cardio: Palpation: no palpable S3 Heart sounds: no rubs GI: Palpation (GI): Soft to palpation Auscultation: normal bowel sounds Neuro: General: patient oriented x3 Motor exam (neuro): no asterixis Extrem: Right upper extremity: edema Objective Data Labs CBC & Chem 7: 12/07/20 11:44 12/16/20 06:12 Labs: Laboratory Results - last 24 hr 12/12/20 12/12/20 12/13/20 09:40 11:21 05:33 PT INR Sodium 140 Potassium 3.7 Chloride 107 Carbon Dioxide 23 Anion Gap 14 BUN 99 H* Creatinine 2.88 H Estim Creat Clear Calc 19.2 Estimated GFR 16 POC Glucose 122 H 70 Random Glucose 51 L* Calcium 8.1 L 12/13/20 08:01 PT 42.7 H INR 3.7 H Sodium Potassium Chloride Carbon Dioxide Anion Gap BUN Creatinine Estim Creat Clear Calc Estimated GFR POC Glucose Random Glucose Calcium Procedures Date of Service Date of Service: 12/13/20 Assessment & Plan Assessment and plan (1) Congestive heart failure: (2) Acute on chronic kidney failure: Assessment and Plan: ?80 year old female with chronic heart failure, COPD with Pulm HTN, HLD, AFIB, CKD 4, admitted with heart failure.? CKD 4 Renal function close to baseline Mild acceptable bump in creatinine while on Lasix drip Keep O > I by 1- 2L per 24 hrs and avoid hypotension or aggressive diuresis 2 gm Na diet Shall follow with team Time Spent With Patient Time: Total time spent is greater than 50% in coordination of care (as documented) at patient's floor/unit and/or counseling patient: Time with patient: 15 - 24 minutes Progress Note: Quality Stroke Does the patient have a stroke diagnosis?: No
--- NOTE | 2020-12-13 09:50 | P.PNIM_ITS ---
Subjective Subjective Date of Service: 12/13/20 Interval History: Seen in f/u for exacerbation of right heart failure, cardiorenal syndrom and worsening B/Cr, She has no shortness of breath and feels ok otherwise, overall fluid balance continues to lag Review of Systems no fever +RAE, leg edema no confusion Physical Exam Vital Signs: Vital Signs: Last Vital Signs Temp 98.2 F 12/13/20 07:11 Pulse 68 12/13/20 07:36 Resp 18 12/13/20 07:11 BP 108/54 L 12/13/20 07:36 Pulse Ox 92 12/13/20 07:11 Oxygen Flow Rate 2 12/07/20 09:35 Body Mass Index 36.7 General: AO X 3, no acute distress Resp: CTA bilateral CVS: S1,S2 iregular iregualr, 2+pitting edema GI: +BS, NT, no distention Skin: fungal rash under folds Neuro: motor grossly intact Psych: appropriate affect Objective Data Active Medications Acetaminophen (Acetaminophen 325 Mg Tablet) 650 mg PO Q6H PRN PRN Reason: Pain, Mild (Pain Scale 1-3) Last Admin: 12/09/20 20:56 Dose: 650 mg Documented by: JOHNY Acetaminophen (Acetaminophen 325 Mg Tablet) 650 mg PO Q4H PRN PRN Reason: pain or fever Last Admin: 12/07/20 23:20 Dose: 650 mg Documented by: JASMIN Al Hydroxide/Mg Hydroxide (Magnesium Hydrox/Alum Hydrox 30 Ml Oral.Susp) 30 ml PO Q4H PRN PRN Reason: Heartburn/Nausea Albuterol Sulfate (Albuterol Sulfate 90 Mcg 8 Gm Inhaler) 1 puff INHALE Q4H PRN PRN Reason: Wheezing Allopurinol (Allopurinol 100 Mg Tablet) 100 mg PO DAILY [facility] Last Admin: 12/13/20 07:36 Dose: 100 mg Documented by: NAOMI Bupropion HCl (Bupropion Hcl 75 Mg Tablet) 150 mg PO DAILY [facility] Last Admin: 12/13/20 07:36 Dose: 150 mg Documented by: NAOMI Ferrous Sulfate (Ferrous Sulfate 324 Mg Tablet.) 324 mg PO DAILY [facility] Last Admin: 12/13/20 07:37 Dose: 324 mg Documented by: NAOMI Fluconazole (Fluconazole 50 Mg Tablet) 50 mg PO DAILY [facility] Last Admin: 12/13/20 07:37 Dose: 50 mg Documented by: NAOMI Fluticasone/Vilanterol (Fluticasone/Vilanterol 200/25 Blst.W.Dev) 1 puff INHALE DAILY [facility] Last Admin: 12/13/20 07:38 Dose: 1 puff Documented by: BRESKANDI Glipizide (Glipizide Xl 2.5 Mg Tab.Er.24) 2.5 mg PO DAILY [facility] Last Admin: 12/13/20 07:37 Dose: 2.5 mg Documented by: NAOMI Furosemide 200 mg/ Sodium (Chloride) 100 mls @ 5 mls/hr IVCONT .Q20H [facility] Last Admin: 12/13/20 05:33 Dose: 10 mg/hr, 5 mls/hr Documented by: KATLYN Levothyroxine Sodium (Levothyroxine Sodium 75 Mcg Tablet) 75 mcg PO DAILY [facility] Last Admin: 12/13/20 07:37 Dose: 75 mcg Documented by: NAOMI Melatonin (Melatonin 3 Mg Tablet) 3 mg PO BEDTIME PRN PRN Reason: Insomnia Metoprolol Tartrate (Metoprolol Tartrate 25 Mg Tablet) 25 mg PO BID [facility]; Protocol Last Admin: 12/13/20 07:36 Dose: 25 mg Documented by: NAOMI Multivitamins/Vitamin C (Multivitamin Tablet) 1 tab PO DAILY [facility] Last Admin: 12/13/20 07:36 Dose: 1 tab Documented by: NAOMI Nystatin (Nystatin Powder 15 Gm Bottle) 1 appl TOPICAL BID [facility]; Protocol Last Admin: 12/13/20 07:39 Dose: 1 appl Documented by: NAOMI Omeprazole (Omeprazole 20 Mg Capsule.) 20 mg PO DAILY@0600 [facility] Last Admin: 12/13/20 05:34 Dose: Not Given Documented by: ANTNATANAEL Non-Admin Reason: Patient Refused Ondansetron HCl (Ondansetron Hcl 4 Mg/2 Ml Vial) 4 mg IVPUSH Q8H PRN PRN Reason: Nausea and Vomiting Pharmacy Consult (Consult Rx Perform Med Rec) 1 each MISCELLANE ONCE PRN PRN Reason: Consult order Sildenafil Citrate (Sildenafil Citrate 20 Mg Tablet) 20 mg PO TID [facility] Last Admin: 12/13/20 07:37 Dose: 20 mg Documented by: NAOMI Sodium Chloride (0.9 % Sodium Chloride Flush 3 Ml Syringe) 3 ml IVFLUSH QSHIFT [facility] Last Admin: 12/13/20 07:33 Dose: Not Given Documented by: NAOMI Non-Admin Reason: IV Running Tiotropium [place] (Tiotropium [place] 18 Mcg Cap.W.Dev) 1 puff INHALE DAILY [facility] Last Admin: 12/13/20 07:38 Dose: 1 puff Documented by: JUDI Warfarin Sodium (Warfarin Sodium 2 Mg Tablet) 2 mg PO DAILY@1800 [facility] Last Admin: 12/12/20 18:25 Dose: 2 mg Documented by: NEDA Labs CBC & Chem 7: 12/07/20 11:44 12/13/20 05:33 Labs: Laboratory Results - last 24 hr 12/12/20 12/12/20 12/13/20 09:40 11:21 05:33 PT INR Anion Gap 14 Estim Creat Clear Calc 19.2 Estimated GFR 16 POC Glucose 122 H 70 Random Glucose 51 L* Calcium 8.1 L 12/13/20 08:01 PT 42.7 H INR 3.7 H Anion Gap Estim Creat Clear Calc Estimated GFR POC Glucose Random Glucose Calcium Assessment and Plan (1) Congestive heart failure: Status: Acute (2) Acute on chronic kidney failure: Status: Acute Assessment and Plan: ?80 year old female with chronc heart failure, likely systolic, HTN, HLD, AFIB, CKD 4, recent hospitalization at [facility] for heart failure exacerbation and here with yet another exacerbation of heart failure.? #Acute on chronic diastolic heeart failure congestive heart failure, right heart failure -IV Lasix drip, continue -thus far negative 2600--essentially unchanged from yesterda, however weight is down since admission from 108 kilo to 103 -Cardiology following -recent echo at [facility] EF 60 to 65 -Follow I/O, weight, salt, and trend BNP. There is no evidence of ischemia -Overall poor prognosis and considering hospice/paliative care #COPD--there is no acute exacerbation, bronchodilators PRN #Chronic AFIB--continue coumadin and rate control with metoprolol, adjust coumadin, INR 3.7, so hold coumadin #CKD with SAM and cardiorenal syndrome consult Dr. Donna Hancock, BUN/CRe at [facility] 12/06 was 79/2.49, Bun/Creatinin today 99/2.88, no major change, not sure if wi ll be incline to have dialysis, will discuss with patient and nephrology--She would be a poor candidate for dialysis and would not want it. #Hypothyroidism--levothyroxine #Cutaneou alisson--Nystatin powder and oral difflucan given that it is very extensive will discuss paliative care/hospice with patient and case managment DVT--Coumadin Quality Stroke Does the patient have a stroke diagnosis?: No VTE Prior VTE?: No VTE Risk Level:: Medical - moderate - high VTE Device Contraindication: Treatment Not Indicated VTE Drug Contraindication: N/A - Med Ordered
--- NOTE | 2020-12-13 11:06 | P.PNCA_ITS ---
Subjective Subjective Date of Service: 12/13/20 Interval history: Feels just about the same. Mostly in bed with minimal activity. Review of Systems Review of Systems Yes all other systems are reviewed and are negative Cardiovascular: Reports as per HPI, Reports no additional cardiovascular complaints, Denies acrocyanosis, Denies cool extremities, Denies painful fingertips, Denies chest pain, Denies chest pain at rest, Denies diaphoresis, Denies syncope, Reports pedal edema, Denies irregular heart rhythm, Denies claudication, Denies leg edema, Denies lightheadedness, Denies palpitations and Reports dyspnea Respiratory: Reports dyspnea Denies syncope Endocrine: Denies palpitations Physical Exam Vital Signs: Last Vital Signs Temp 98.2 F 12/13/20 07:11 Pulse 68 12/13/20 07:36 Resp 18 12/13/20 07:11 BP 108/54 L 12/13/20 07:36 Pulse Ox 92 12/13/20 07:11 Oxygen Flow Rate 2 12/07/20 09:35 Body Mass Index 36.7 Const General: cooperative and no acute distress [facility] Other: Unremarkable Neck Neck: Yes normal visual inspection Chest Chest palpation & inspection: normal inspection of the chest Resp Auscultation: crackles Cardio Palpation: normal PMI Heart sounds: S1 normal heart sound present, S2 normal heart sound present, no gallops, Murmur heart sound present (3/6 HSM left parasternal and apex) and no rubs GI Palpation (GI): Soft to palpation Back/Spine/Pelvis Other: unremarkable Skin General skin exam: no rashes or lesions noted Neuro Cranial nerves: Yes Other cranial nerve findings present Extrem General: Yes edema (1-2+ both LE with chronic changes) Psych Mental Status: other Results Labs and Meds Result diagrams: 12/07/20 11:44 12/13/20 05:33 Lab results: Laboratory Results - last 24 hr 12/12/20 12/13/20 12/13/20 11:21 05:33 08:01 PT 42.7 H INR 3.7 H Sodium 140 Potassium 3.7 Chloride 107 Carbon Dioxide 23 Anion Gap 14 BUN 99 H* Creatinine 2.88 H Estim Creat Clear Calc 19.2 Estimated GFR 16 POC Glucose 70 Random Glucose 51 L* Calcium 8.1 L Progress Note: A&P Assessment and plan (1) Acute congestive heart failure: Status: Acute (2) Acute on chronic right-sided heart failure: Status: Acute (3) Non-rheumatic tricuspid valve insufficiency: Status: Acute (4) Pulmonary HTN: Status: Acute (5) Persistent atrial fibrillation: Status: Acute Assessment and Plan: Chest x-ray shows diffuse emphysematous changes. Recent echocardiogram from [facility] show severe biatrial enlargement; LVEF 65% with moderate LVH; dilated right ventricle with severe tricuspid regurgitation and severe pulmonary hypertension with RVSP greater than 80 mmHg. Overall, this could be chronic right ventricular failure related to intrinsic pulmonary disease with acute worsening. On Lasix drip. Also received Metolazone x 2 doses. Baseline chronic kidney disease and renal function/consultation noted. With regard to atrial fibrillation, rate controlled. Continue beta blockers/anti-coagulation. Per I/o chart, unclear if accurate or not, but only -2.4L -ve since admission. Overall prognosis guarded. Discussed about palliative care/hospice as well. She will think about it. Fall Risk Details Current Medications: Current Medications Acetaminophen (Acetaminophen 325 Mg Tablet) 650 mg PO Q6H PRN PRN Reason: Pain, Mild (Pain Scale 1-3) Last Admin: 12/09/20 20:56 Dose: 650 mg Documented by: Acetaminophen (Acetaminophen 325 Mg Tablet) 650 mg PO Q4H PRN PRN Reason: pain or fever Last Admin: 12/07/20 23:20 Dose: 650 mg Documented by: Al Hydroxide/Mg Hydroxide (Magnesium Hydrox/Alum Hydrox 30 Ml Oral.Susp) 30 ml PO Q4H PRN PRN Reason: Heartburn/Nausea Albuterol Sulfate (Albuterol Sulfate 90 Mcg 8 Gm Inhaler) 1 puff INHALE Q4H PRN PRN Reason: Wheezing Allopurinol (Allopurinol 100 Mg Tablet) 100 mg PO DAILY [facility] Last Admin: 12/13/20 07:36 Dose: 100 mg Documented by: Bupropion HCl (Bupropion Hcl 75 Mg Tablet) 150 mg PO DAILY [facility] Last Admin: 12/13/20 07:36 Dose: 150 mg Documented by: Ferrous Sulfate (Ferrous Sulfate 324 Mg Tablet.) 324 mg PO DAILY [facility] Last Admin: 12/13/20 07:37 Dose: 324 mg Documented by: Fluconazole (Fluconazole 50 Mg Tablet) 50 mg PO DAILY [facility] Last Admin: 12/13/20 07:37 Dose: 50 mg Documented by: Fluticasone/Vilanterol (Fluticasone/Vilanterol 200/25 Blst.W.Dev) 1 puff INHALE DAILY [facility] Last Admin: 12/13/20 07:38 Dose: 1 puff Documented by: Glipizide (Glipizide Xl 2.5 Mg Tab.Er.24) 2.5 mg PO DAILY [facility] Last Admin: 12/13/20 07:37 Dose: 2.5 mg Documented by: Furosemide 200 mg/ Sodium (Chloride) 100 mls @ 5 mls/hr IVCONT .Q20H [facility] Last Admin: 12/13/20 05:33 Dose: 10 mg/hr, 5 mls/hr Documented by: Levothyroxine Sodium (Levothyroxine Sodium 75 Mcg Tablet) 75 mcg PO DAILY [facility] Last Admin: 12/13/20 07:37 Dose: 75 mcg Documented by: Melatonin (Melatonin 3 Mg Tablet) 3 mg PO BEDTIME PRN PRN Reason: Insomnia Metoprolol Tartrate (Metoprolol Tartrate 25 Mg Tablet) 25 mg PO BID [facility]; Protocol Last Admin: 12/13/20 07:36 Dose: 25 mg Documented by: Multivitamins/Vitamin C (Multivitamin Tablet) 1 tab PO DAILY [facility] Last Admin: 12/13/20 07:36 Dose: 1 tab Documented by: Nystatin (Nystatin Powder 15 Gm Bottle) 1 appl TOPICAL BID [facility]; Protocol Last Admin: 12/13/20 07:39 Dose: 1 appl Documented by: Omeprazole (Omeprazole 20 Mg Capsule.Dr) 20 mg PO DAILY@0600 [facility] Last Admin: 12/13/20 05:34 Dose: Not Given Documented by: Ondansetron HCl (Ondansetron Hcl 4 Mg/2 Ml Vial) 4 mg IVPUSH Q8H PRN PRN Reason: Nausea and Vomiting Pharmacy Consult (Consult Rx Perform Med Rec) 1 each MISCELLANE ONCE PRN PRN Reason: Consult order Sildenafil Citrate (Sildenafil Citrate 20 Mg Tablet) 20 mg PO TID [facility] Last Admin: 12/13/20 07:37 Dose: 20 mg Documented by: Sodium Chloride (0.9 % Sodium Chloride Flush 3 Ml Syringe) 3 ml IVFLUSH QSHIFT [facility] Last Admin: 12/13/20 07:33 Dose: Not Given Documented by: Tiotropium [place] (Tiotropium [place] 18 Mcg Cap.W.Dev) 1 puff INHALE DAILY [facility] Last Admin: 12/13/20 07:38 Dose: 1 puff Documented by: Warfarin Sodium (Warfarin Sodium 2 Mg Tablet) 2 mg PO DAILY@1800 [facility] Last Admin: 12/12/20 18:25 Dose: 2 mg Documented by: Time Spent With Patient Time: Total time spent is greater than 50% in coordination of care (as documented) at patient's floor/unit and/or counseling patient: Time with patient: less than 15 minutes Progress Note: Quality Stroke Does the patient have a stroke diagnosis?: No Procedures Date of Service Date of Service: 12/13/20
--- NOTE | 2020-12-13 12:53 | MHC.CM.PN ---
per rounds pt is continuing on iv lasix will be here over the weekend
--- NOTE | 2020-12-13 13:36 | MHC.CLN ---
F/U PT WITH INCREASED NUTRITION RISK R/T PRESSURE INJURIES. STAGE II SACRUM AND STAGE I TO RIGHT AND LEFT HEELS. PO INTAKE 50-100% DIET RX: CARDIAC-APPROPRIATE PT RECEIVING ENSURE MAX BID AND TERESA TO PROMOTE WOUND HEALING. SUPPLEMENTS PROVIDE 460 KCALS, 65 G PROTEIN CONTINUE TO MONITOR PO INTAKE AND SUPPLEMENT ACCEPTANCE
[2020-12-13] MEDS: Warfarin Sodium 2 MG TABLET PO (16:39)
[2020-12-13] MEDS: 0.9 % Sodium Chloride Flush 3 ML SYRINGE IVFLUSH (21:09)
[2020-12-14] VITALS (8 sets, daily range): BP systolic 104–126; BP diastolic 51–73; PULSE 54–74; RESP 18–20; TEMP 36.2–37.1; O2SAT 94–98; BMI 37.0
[2020-12-14] MEDS: Furosemide 200 MG in 0.9 % Sodium Chloride 80 ML IVCONT ×2 (01:07→20:41)
[2020-12-14] MEDS: Omeprazole 20 MG CAPSULE.DR PO (05:33)
[2020-12-14 07:26] LABS: Glucose, Whole Blood 39 mg/dL (60-115)
[2020-12-14 07:55] LABS: Anion Gap 16 (12-20); Blood Urea Nitrogen 101 mg/dL (9-16); Carbon Dioxide 23 mmol/L (22-29); Chloride 101 mmol/L (96-108); Creatinine Clr Calc Pharmacy 19.1; Estimated Glomerular Filt Rate 16; Glucose Random 38 mg/dL (60-115); Potassium 3.4 mmol/L (3.3-5.1); Sodium 137 mmol/L (135-145)
[2020-12-14 07:56] LABS: Glucose, Whole Blood 63 mg/dL (60-115)
[2020-12-14] MEDS: Levothyroxine Sodium 75 MCG TABLET PO (07:57)
[2020-12-14] MEDS: 0.9 % Sodium Chloride Flush 3 ML SYRINGE IVFLUSH ×2 (07:57→20:14)
[2020-12-14] MEDS: Ferrous Sulfate 324 MG TABLET.DR PO (07:57)
[2020-12-14] MEDS: Multivitamin TABLET 1 TAB PO (07:58)
[2020-12-14] MEDS: Sildenafil Citrate 20 MG TABLET PO ×3 (07:58→20:13)
[2020-12-14] MEDS: allopurinoL 100 MG TABLET PO (07:58)
[2020-12-14] MEDS: Metoprolol Tartrate 25 MG TABLET PO ×2 (07:58→20:13)
[2020-12-14] MEDS: buPROPion HCL 75 MG TABLET 150 MG PO (07:58)
[2020-12-14] MEDS: Nystatin Powder 15 GM BOTTLE 1 APPL TOPICAL ×2 (08:00→20:14)
[2020-12-14 08:22] LABS: INTERNATIONAL NORM RATIO 4.4 (0.9-1.1); Prothrombin Time 51.5 SEC (9.9-13.0)
--- NOTE | 2020-12-14 10:14 | P.PNIM_ITS ---
Subjective Subjective Date of Service: 12/14/20 Interval History: Seen in f/u for exacerbation of right heart failure, cardiorenal syndrom and worsening? B/Cr,? She has no shortness of breath and feels ok otherwise, overall fluid balance continues to lag Review of Systems no fever +RAE, leg edema no confusion depressed Physical Exam Vital Signs: Vital Signs: Last Vital Signs Temp 97.7 F 12/14/20 07:22 Pulse 66 12/14/20 07:58 Resp 20 12/14/20 07:22 BP 104/51 L 12/14/20 07:58 Pulse Ox 96 12/14/20 07:22 Oxygen Flow Rate 2 12/07/20 09:35 Body Mass Index 37.0 General: AO X 3, no acute distress Resp:? CTA bilateral CVS: S1,S2 iregular iregualr, 2+pitting edema GI: +BS, NT, no distention Skin: fungal rash under folds Neuro:? motor grossly intact Psych: appropriate affect Objective Data Active Medications Acetaminophen (Acetaminophen 325 Mg Tablet) 650 mg PO Q6H PRN PRN Reason: Pain, Mild (Pain Scale 1-3) Last Admin: 12/09/20 20:56 Dose: 650 mg Documented by: JOHNY Acetaminophen (Acetaminophen 325 Mg Tablet) 650 mg PO Q4H PRN PRN Reason: pain or fever Last Admin: 12/07/20 23:20 Dose: 650 mg Documented by: JASMIN Al Hydroxide/Mg Hydroxide (Magnesium Hydrox/Alum Hydrox 30 Ml Oral.Susp) 30 ml PO Q4H PRN PRN Reason: Heartburn/Nausea Albuterol Sulfate (Albuterol Sulfate 90 Mcg 8 Gm Inhaler) 1 puff INHALE Q4H PRN PRN Reason: Wheezing Allopurinol (Allopurinol 100 Mg Tablet) 100 mg PO DAILY [facility] Last Admin: 12/14/20 07:58 Dose: 100 mg Documented by: MYCHAL Bupropion HCl (Bupropion Hcl 75 Mg Tablet) 150 mg PO DAILY [facility] Last Admin: 12/14/20 07:58 Dose: 150 mg Documented by: MYCHAL Ferrous Sulfate (Ferrous Sulfate 324 Mg Tablet.) 324 mg PO DAILY [facility] Last Admin: 12/14/20 07:57 Dose: 324 mg Documented by: MYCHAL Fluconazole (Fluconazole 50 Mg Tablet) 50 mg PO DAILY [facility] Last Admin: 12/14/20 07:58 Dose: 50 mg Documented by: MYCHAL Fluticasone/Vilanterol (Fluticasone/Vilanterol 200/25 Blst.W.Dev) 1 puff INHALE DAILY [facility] Last Admin: 12/14/20 07:53 Dose: Not Given Documented by: SABINA Non-Admin Reason: Patient Asleep Glipizide (Glipizide Xl 2.5 Mg Tab.Er.24) 2.5 mg PO DAILY [facility] Last Admin: 12/14/20 07:59 Dose: Not Given Documented by: MYCHAL Non-Admin Reason: blood glucose low Furosemide 200 mg/ Sodium (Chloride) 100 mls @ 5 mls/hr IVCONT .Q20H [facility] Last Admin: 12/14/20 01:07 Dose: 10 mg/hr, 5 mls/hr Documented by: KATLYN Levothyroxine Sodium (Levothyroxine Sodium 75 Mcg Tablet) 75 mcg PO DAILY [facility] Last Admin: 12/14/20 07:57 Dose: 75 mcg Documented by: MYCHAL Melatonin (Melatonin 3 Mg Tablet) 3 mg PO BEDTIME PRN PRN Reason: Insomnia Metoprolol Tartrate (Metoprolol Tartrate 25 Mg Tablet) 25 mg PO BID [facility]; Protocol Last Admin: 12/14/20 07:58 Dose: 25 mg Documented by: MYCHAL Multivitamins/Vitamin C (Multivitamin Tablet) 1 tab PO DAILY [facility] Last Admin: 12/14/20 07:58 Dose: 1 tab Documented by: MYCHAL Nystatin (Nystatin Powder 15 Gm Bottle) 1 appl TOPICAL BID [facility]; Protocol Last Admin: 12/14/20 08:00 Dose: 1 appl Documented by: MYCHAL Omeprazole (Omeprazole 20 Mg Capsule.) 20 mg PO DAILY@0600 [facility] Last Admin: 12/14/20 05:33 Dose: 20 mg Documented by: ANTNATANAEL Ondansetron HCl (Ondansetron Hcl 4 Mg/2 Ml Vial) 4 mg IVPUSH Q8H PRN PRN Reason: Nausea and Vomiting Pharmacy Consult (Consult Rx Perform Med Rec) 1 each MISCELLANE ONCE PRN PRN Reason: Consult order Sildenafil Citrate (Sildenafil Citrate 20 Mg Tablet) 20 mg PO TID [facility] Last Admin: 12/14/20 07:58 Dose: 20 mg Documented by: MYCHAL Sodium Chloride (0.9 % Sodium Chloride Flush 3 Ml Syringe) 3 ml IVFLUSH QSHIFT [facility] Last Admin: 12/14/20 07:57 Dose: 3 ml Documented by: MYCHAL Tiotropium [place] (Tiotropium [place] 18 Mcg Cap.W.Dev) 1 puff INHALE DAILY [facility] Last Admin: 12/14/20 07:53 Dose: Not Given Documented by: SABINA Non-Admin Reason: Patient Asleep Warfarin Sodium (Warfarin Sodium 2 Mg Tablet) 2 mg PO DAILY@1800 [facility] Last Admin: 12/13/20 16:39 Dose: 2 mg Documented by: NAOMI Labs CBC & Chem 7: 12/07/20 11:44 12/14/20 06:17 Labs: Laboratory Results - last 24 hr 12/14/20 12/14/20 12/14/20 06:17 07:10 07:52 PT INR Anion Gap 16 Estim Creat Clear Calc 19.1 Estimated GFR 16 POC Glucose 39 L* 63 Random Glucose 38 L* Calcium 8.0 L 12/14/20 08:00 PT 51.5 H INR 4.4 H Anion Gap Estim Creat Clear Calc Estimated GFR POC Glucose Random Glucose Calcium Assessment and Plan (1) Congestive heart failure: Status: Acute (2) Acute on chronic kidney failure: Status: Acute Assessment and Plan: ?80 year old female with chronic diastolic chf, HTN, HLD, AFIB, CKD 4, recent hospitalization at [facility] for heart failure exacerbation and here with yet another exacerbation of heart failure 2 days post discharge #Acute on chronic diastolic heeart failure congestive heart failure, right heart failure and cardiorenal syndrome -Did not diuresse with IV Lasix push so changed to IV Lasix drip with Metolazone and -thus far negative 2400--essentially unchanged from yesterday, however weight is down since admission from 108 kilo to 104 since admission -Cardiology following -recent echo at [facility] EF 60 to 65 -Follow I/O, weight, salt, and trend BNP. There is no evidence of ischemia -Overall poor prognosis and cardiology is recommending hospice/paliative care, pt is not quite ready for this. #COPD--there is no acute exacerbation, bronchodilators PRN #Chronic AFIB--on coumadin and rate control with metoprolol, adjust coumadin, INR 4.4, so hold coumadin #CKD with SAM and cardiorenal syndrome followed by Dr. Donna Hancock, BUN/CRe at [facility] 12/06 was 79/2.49, Bun/Creatinin today 101/2.9, no major change. She is not incline to have dialysis if needed, #Hypothyroidism--levothyroxine #Cutaneou alisson--Nystatin powder and oral difflucan (treat for 10 days) given that it is very extensive will discuss paliative care/hospice with patient and case managment DVT--Coumadin Quality Stroke Does the patient have a stroke diagnosis?: No VTE Prior VTE?: No VTE Risk Level:: Medical - moderate - high VTE Device Contraindication: Treatment Not Indicated VTE Drug Contraindication: N/A - Med Ordered
[2020-12-14 11:15] LABS: Glucose, Whole Blood 54 mg/dL (60-115)
[2020-12-14 12:08] LABS: Glucose, Whole Blood 153 mg/dL (60-115)
--- NOTE | 2020-12-14 13:29 | PC.NURSE ---
Patient's POC this morning was 39. Dr. Neri was notified. Patient drank 8 ounces of juice and ate breakfast. Scheduled Glucotrol was held. POC increased to 63, then lowered to 54. Dr. Neri notified again. IVP dextrose was ordered and administered. POC increased to 153.
--- NOTE | 2020-12-14 13:54 | PM.PNNEP ---
Subjective Subjective Date of Service: 12/14/20 Interval history: Events noted. All recent data reviewed Physical Exam Vital Signs: Vital Signs: Last Vital Signs Temp 97.4 F 12/14/20 11:29 Pulse 63 12/14/20 11:29 Resp 20 12/14/20 11:29 BP 111/54 L 12/14/20 11:29 Pulse Ox 98 12/14/20 11:29 Oxygen Flow Rate 2 12/07/20 09:35 Body Mass Index 37.0 Const: General: no acute distress Eyes: EOM: EOMs intact bilaterally Neck: Neck: Yes supple Resp: Auscultation: diminished lung sounds Cardio: Rate: regular rate GI: Palpation (GI): Soft to palpation Neuro: General: moves all extremities Objective Data Labs CBC & Chem 7: 12/07/20 11:44 12/14/20 06:17 Labs: Laboratory Results - last 24 hr 12/14/20 12/14/20 12/14/20 06:17 07:10 07:52 PT INR Sodium 137 Potassium 3.4 Chloride 101 Carbon Dioxide 23 Anion Gap 16 BUN 101 H* Creatinine 2.90 H Estim Creat Clear Calc 19.1 Estimated GFR 16 POC Glucose 39 L* 63 Random Glucose 38 L* Calcium 8.0 L 12/14/20 12/14/20 12/14/20 08:00 10:59 12:03 PT 51.5 H INR 4.4 H Sodium Potassium Chloride Carbon Dioxide Anion Gap BUN Creatinine Estim Creat Clear Calc Estimated GFR POC Glucose 54 L* 153 H Random Glucose Calcium Procedures Date of Service Date of Service: 12/14/20 Assessment & Plan Assessment and plan (1) Acute on chronic kidney failure: Status: Acute Assessment and Plan: 80 year old female with chronic heart failure, COPD with Pulm HTN, HLD, AFIB, CKD 4, admitted with heart failure.? Renal function fairly stable 2 Gram Na diet; Fluid restriction Continue diuresis; No indication for HD today Continue supportive care for now Labs AM; Shall follow with team Time Spent With Patient Time: Total time spent is greater than 50% in coordination of care (as documented) at patient's floor/unit and/or counseling patient: Progress Note: Quality Stroke Does the patient have a stroke diagnosis?: No
[2020-12-15] VITALS (9 sets, daily range): BP systolic 94–120; BP diastolic 46–64; PULSE 68–76; RESP 15–20; TEMP 36.4–37; O2SAT 90–97; BMI 37.4
[2020-12-15 06:15] LABS: INTERNATIONAL NORM RATIO 3.3 (0.9-1.1); Prothrombin Time 38.4 SEC (9.9-13.0)
[2020-12-15] MEDS: Omeprazole 20 MG CAPSULE.DR PO (06:34)
[2020-12-15 06:57] LABS: Anion Gap 17 (12-20); Blood Urea Nitrogen 109 mg/dL (9-16); Calcium 7.9 mg/dL (8.4-10.2); Carbon Dioxide 24 mmol/L (22-29); Chloride 102 mmol/L (96-108); Creatinine Clr Calc Pharmacy 19.6; Estimated Glomerular Filt Rate 16; Glucose Random 92 mg/dL (60-115); Potassium 3.5 mmol/L (3.3-5.1); Sodium 139 mmol/L (135-145)
[2020-12-15 07:07] LABS: Glucose, Whole Blood 81 mg/dL (60-115)
[2020-12-15] MEDS: Levothyroxine Sodium 75 MCG TABLET PO (10:18)
[2020-12-15] MEDS: Multivitamin TABLET 1 TAB PO (10:18)
[2020-12-15] MEDS: Ferrous Sulfate 324 MG TABLET.DR PO (10:18)
[2020-12-15] MEDS: Sildenafil Citrate 20 MG TABLET PO ×3 (10:18→20:14)
[2020-12-15] MEDS: buPROPion HCL 75 MG TABLET 150 MG PO (10:18)
[2020-12-15] MEDS: allopurinoL 100 MG TABLET PO (10:18)
[2020-12-15] MEDS: 0.9 % Sodium Chloride Flush 3 ML SYRINGE IVFLUSH ×3 (10:18→20:14)
[2020-12-15] MEDS: Nystatin Powder 15 GM BOTTLE 1 APPL TOPICAL ×2 (10:22→20:14)
--- NOTE | 2020-12-15 10:57 | PM.PNCARD ---
Subjective Subjective Date of Service: 12/15/20 Interval history: States that she is feeling better. Review of Systems Review of Systems Yes all other systems are reviewed and are negative Cardiovascular: Reports as per HPI, Reports no additional cardiovascular complaints, Denies acrocyanosis, Denies cool extremities, Denies painful fingertips, Denies chest pain, Denies chest pain at rest, Denies diaphoresis, Denies syncope, Reports pedal edema, Denies irregular heart rhythm, Denies claudication, Denies leg edema, Denies lightheadedness, Denies palpitations and Reports dyspnea Respiratory: Reports dyspnea Denies syncope Endocrine: Denies palpitations Physical Exam Vital Signs: Last Vital Signs Temp 97.5 F 12/15/20 07:09 Pulse 74 12/15/20 10:19 Resp 20 12/15/20 07:09 BP 94/46 L 12/15/20 10:19 Pulse Ox 97 12/15/20 07:09 Oxygen Flow Rate 2 12/07/20 09:35 Body Mass Index 37.4 Const General: cooperative and no acute distress [facility] Other: Unremarkable Neck Neck: Yes normal visual inspection Chest Chest palpation & inspection: normal inspection of the chest Resp Auscultation: crackles Cardio Palpation: normal PMI Heart sounds: S1 normal heart sound present, S2 normal heart sound present, no gallops, Murmur heart sound present (3/6 HSM left parasternal and apex) and no rubs GI Palpation (GI): Soft to palpation Back/Spine/Pelvis Other: unremarkable Skin General skin exam: no rashes or lesions noted Neuro Cranial nerves: Yes Other cranial nerve findings present Extrem General: Yes edema (1-2+ both LE with chronic changes) Psych Mental Status: other Results Labs and Meds Result diagrams: 12/07/20 11:44 12/15/20 05:52 Lab results: Laboratory Results - last 24 hr 12/14/20 12/14/20 12/15/20 10:59 12:03 05:52 PT 38.4 H INR 3.3 H Sodium Potassium Chloride Carbon Dioxide Anion Gap BUN Creatinine Estim Creat Clear Calc Estimated GFR POC Glucose 54 L* 153 H Random Glucose Calcium 12/15/20 12/15/20 05:52 06:55 PT INR Sodium 139 Potassium 3.5 Chloride 102 Carbon Dioxide 24 Anion Gap 17 BUN 109 H* Creatinine 2.85 H Estim Creat Clear Calc 19.6 Estimated GFR 16 POC Glucose 81 Random Glucose 92 Calcium 7.9 L Progress Note: A&P Assessment and plan (1) Acute congestive heart failure: Status: Acute (2) Acute on chronic right-sided heart failure: Status: Acute (3) Non-rheumatic tricuspid valve insufficiency: Status: Acute (4) Pulmonary HTN: Status: Acute (5) Persistent atrial fibrillation: Status: Acute Assessment and Plan: Chest x-ray shows diffuse emphysematous changes. Recent echocardiogram from [facility] show severe biatrial enlargement; LVEF 65% with moderate LVH; dilated right ventricle with severe tricuspid regurgitation and severe pulmonary hypertension with RVSP greater than 80 mmHg. Overall, this could be chronic right ventricular failure related to intrinsic pulmonary disease with acute worsening. On Lasix drip. Also received Metolazone x 2 doses. Volume status much improved since admission on clinical exam but not clear if I/O charting is reliable or not. Can swith to PO diuretics. With regard to atrial fibrillation, rate controlled. Continue beta blockers/anti-coagulation. Fall Risk Details Current Medications: Current Medications Acetaminophen (Acetaminophen 325 Mg Tablet) 650 mg PO Q6H PRN PRN Reason: Pain, Mild (Pain Scale 1-3) Last Admin: 12/09/20 20:56 Dose: 650 mg Documented by: Acetaminophen (Acetaminophen 325 Mg Tablet) 650 mg PO Q4H PRN PRN Reason: pain or fever Last Admin: 12/07/20 23:20 Dose: 650 mg Documented by: Al Hydroxide/Mg Hydroxide (Magnesium Hydrox/Alum Hydrox 30 Ml Oral.Susp) 30 ml PO Q4H PRN PRN Reason: Heartburn/Nausea Albuterol Sulfate (Albuterol Sulfate 90 Mcg 8 Gm Inhaler) 1 puff INHALE Q4H PRN PRN Reason: Wheezing Allopurinol (Allopurinol 100 Mg Tablet) 100 mg PO DAILY [facility] Last Admin: 12/15/20 10:18 Dose: 100 mg Documented by: Bupropion HCl (Bupropion Hcl 75 Mg Tablet) 150 mg PO DAILY [facility] Last Admin: 12/15/20 10:18 Dose: 150 mg Documented by: Ferrous Sulfate (Ferrous Sulfate 324 Mg Tablet.Dr) 324 mg PO DAILY [facility] Last Admin: 12/15/20 10:18 Dose: 324 mg Documented by: Fluconazole (Fluconazole 50 Mg Tablet) 50 mg PO DAILY [facility] Last Admin: 12/15/20 10:18 Dose: 50 mg Documented by: Fluticasone/Vilanterol (Fluticasone/Vilanterol 200/25 Blst.W.Dev) 1 puff INHALE DAILY [facility] Last Admin: 12/15/20 07:34 Dose: Not Given Documented by: Glipizide (Glipizide Xl 2.5 Mg Tab.Er.24) 2.5 mg PO DAILY [facility] Last Admin: 12/15/20 10:19 Dose: Not Given Documented by: Furosemide 200 mg/ Sodium (Chloride) 100 mls @ 5 mls/hr IVCONT .Q20H [facility] Last Admin: 12/14/20 20:41 Dose: 10 mg/hr, 5 mls/hr Documented by: Levothyroxine Sodium (Levothyroxine Sodium 75 Mcg Tablet) 75 mcg PO DAILY [facility] Last Admin: 12/15/20 10:18 Dose: 75 mcg Documented by: Melatonin (Melatonin 3 Mg Tablet) 3 mg PO BEDTIME PRN PRN Reason: Insomnia Metoprolol Tartrate (Metoprolol Tartrate 25 Mg Tablet) 25 mg PO BID [facility]; Protocol Last Admin: 12/15/20 10:19 Dose: Not Given Documented by: Multivitamins/Vitamin C (Multivitamin Tablet) 1 tab PO DAILY [facility] Last Admin: 12/15/20 10:18 Dose: 1 tab Documented by: Nystatin (Nystatin Powder 15 Gm Bottle) 1 appl TOPICAL BID [facility]; Protocol Last Admin: 12/15/20 10:22 Dose: 1 appl Documented by: Omeprazole (Omeprazole 20 Mg Capsule.Dr) 20 mg PO DAILY@0600 [facility] Last Admin: 12/15/20 06:34 Dose: 20 mg Documented by: Ondansetron HCl (Ondansetron Hcl 4 Mg/2 Ml Vial) 4 mg IVPUSH Q8H PRN PRN Reason: Nausea and Vomiting Pharmacy Consult (Consult Rx Perform Med Rec) 1 each MISCELLANE ONCE PRN PRN Reason: Consult order Sildenafil Citrate (Sildenafil Citrate 20 Mg Tablet) 20 mg PO TID [facility] Last Admin: 12/15/20 10:18 Dose: 20 mg Documented by: Sodium Chloride (0.9 % Sodium Chloride Flush 3 Ml Syringe) 3 ml IVFLUSH QSHIFT [facility] Last Admin: 12/15/20 10:18 Dose: 3 ml Documented by: Tiotropium [place] (Tiotropium [place] 18 Mcg Cap.W.Dev) 1 puff INHALE DAILY [facility] Last Admin: 12/15/20 07:35 Dose: Not Given Documented by: Warfarin Sodium (Warfarin Sodium 1 Mg Tablet) 1 mg PO DAILY@1800 [facility] Time Spent With Patient Time: Total time spent is greater than 50% in coordination of care (as documented) at patient's floor/unit and/or counseling patient: Time with patient: less than 15 minutes Progress Note: Quality Stroke Does the patient have a stroke diagnosis?: No Procedures Date of Service Date of Service: 12/15/20
[2020-12-15 11:21] LABS: Glucose, Whole Blood 113 mg/dL (60-115)
--- NOTE | 2020-12-15 13:19 | HO.PM.IMPN ---
Subjective Subjective Date of Service: 12/15/20 Interval History: dyspnea improved edema improved no chest pain Review of Systems Review of Systems: Yes all other systems are reviewed and are negative Physical Exam Vital Signs: Vital Signs: Last Vital Signs Temp 97.8 F 12/15/20 11:36 Pulse 76 12/15/20 11:36 Resp 20 12/15/20 11:36 BP 94/57 L 12/15/20 11:36 Pulse Ox 90 L 12/15/20 11:36 Oxygen Flow Rate 2 12/07/20 09:35 Body Mass Index 37.4 Gen: in no acute distress on 2L O2 via NC HEENT: sclera anicteric, moist mucus membranes Neck: supple Lungs: clear to auscultation bilaterally Heart: irregularly irregular Abd: soft, non-tender, non-distended Ext: 1+ pitting edema to thighs Skin: warm/well-perfused Neuro: alert and oriented x3, no focal findings Psych: appropriate affect Objective Data Active Medications Acetaminophen (Acetaminophen 325 Mg Tablet) 650 mg PO Q6H PRN PRN Reason: Pain, Mild (Pain Scale 1-3) Last Admin: 12/09/20 20:56 Dose: 650 mg Documented by: JOHNY Acetaminophen (Acetaminophen 325 Mg Tablet) 650 mg PO Q4H PRN PRN Reason: pain or fever Last Admin: 12/07/20 23:20 Dose: 650 mg Documented by: JASMIN Al Hydroxide/Mg Hydroxide (Magnesium Hydrox/Alum Hydrox 30 Ml Oral.Susp) 30 ml PO Q4H PRN PRN Reason: Heartburn/Nausea Albuterol Sulfate (Albuterol Sulfate 90 Mcg 8 Gm Inhaler) 1 puff INHALE Q4H PRN PRN Reason: Wheezing Allopurinol (Allopurinol 100 Mg Tablet) 100 mg PO DAILY [facility] Last Admin: 12/15/20 10:18 Dose: 100 mg Documented by: MYCHAL Bupropion HCl (Bupropion Hcl 75 Mg Tablet) 150 mg PO DAILY [facility] Last Admin: 12/15/20 10:18 Dose: 150 mg Documented by: MYCHAL Ferrous Sulfate (Ferrous Sulfate 324 Mg Tablet.) 324 mg PO DAILY [facility] Last Admin: 12/15/20 10:18 Dose: 324 mg Documented by: MYCHAL Fluconazole (Fluconazole 50 Mg Tablet) 50 mg PO DAILY [facility] Last Admin: 12/15/20 10:18 Dose: 50 mg Documented by: MYCHAL Fluticasone/Vilanterol (Fluticasone/Vilanterol 200/25 Blst.W.Dev) 1 puff INHALE DAILY [facility] Last Admin: 12/15/20 07:34 Dose: Not Given Documented by: SABINA Non-Admin Reason: Patient Refused Glipizide (Glipizide Xl 2.5 Mg Tab.Er.24) 2.5 mg PO DAILY [facility] Last Admin: 12/15/20 10:19 Dose: Not Given Documented by: MYCHAL Non-Admin Reason: low blood glucose Furosemide 200 mg/ Sodium (Chloride) 100 mls @ 5 mls/hr IVCONT .Q20H [facility] Last Admin: 12/14/20 20:41 Dose: 10 mg/hr, 5 mls/hr Documented by: KATLYN Levothyroxine Sodium (Levothyroxine Sodium 75 Mcg Tablet) 75 mcg PO DAILY [facility] Last Admin: 12/15/20 10:18 Dose: 75 mcg Documented by: MYCHAL Melatonin (Melatonin 3 Mg Tablet) 3 mg PO BEDTIME PRN PRN Reason: Insomnia Metoprolol Tartrate (Metoprolol Tartrate 25 Mg Tablet) 25 mg PO BID [facility]; Protocol Last Admin: 12/15/20 10:19 Dose: Not Given Documented by: MYCHAL Non-Admin Reason: BP low Multivitamins/Vitamin C (Multivitamin Tablet) 1 tab PO DAILY [facility] Last Admin: 12/15/20 10:18 Dose: 1 tab Documented by: MYCHAL Nystatin (Nystatin Powder 15 Gm Bottle) 1 appl TOPICAL BID [facility]; Protocol Last Admin: 12/15/20 10:22 Dose: 1 appl Documented by: MYCHAL Omeprazole (Omeprazole 20 Mg Capsule.) 20 mg PO DAILY@0600 [facility] Last Admin: 12/15/20 06:34 Dose: 20 mg Documented by: ANTNATANAEL Ondansetron HCl (Ondansetron Hcl 4 Mg/2 Ml Vial) 4 mg IVPUSH Q8H PRN PRN Reason: Nausea and Vomiting Pharmacy Consult (Consult Rx Perform Med Rec) 1 each MISCELLANE ONCE PRN PRN Reason: Consult order Sildenafil Citrate (Sildenafil Citrate 20 Mg Tablet) 20 mg PO TID [facility] Last Admin: 12/15/20 10:18 Dose: 20 mg Documented by: MYCHAL Sodium Chloride (0.9 % Sodium Chloride Flush 3 Ml Syringe) 3 ml IVFLUSH QSHIFT [facility] Last Admin: 12/15/20 10:18 Dose: 3 ml Documented by: MYCHAL Tiotropium [place] (Tiotropium [place] 18 Mcg Cap.W.Dev) 1 puff INHALE DAILY [facility] Last Admin: 12/15/20 07:35 Dose: Not Given Documented by: SABINA Non-Admin Reason: Patient Refused Warfarin Sodium (Warfarin Sodium 1 Mg Tablet) 1 mg PO DAILY@1800 [facility] Labs CBC & Chem 7: 12/07/20 11:44 12/15/20 05:52 Labs: Laboratory Results - last 24 hr 12/15/20 12/15/20 12/15/20 05:52 05:52 06:55 PT 38.4 H INR 3.3 H Anion Gap 17 Estim Creat Clear Calc 19.6 Estimated GFR 16 POC Glucose 81 Random Glucose 92 Calcium 7.9 L 12/15/20 11:02 PT INR Anion Gap Estim Creat Clear Calc Estimated GFR POC Glucose 113 Random Glucose Calcium Assessment and Plan (1) Congestive heart failure: Status: Acute (2) Acute on chronic kidney failure: Status: Acute Assessment and Plan: hospital d#9 80yo F with HFpEF, HTN, HLD, AF, CKD4 recent hospitalization at [facility] for CHF exacerbation re-admitted here after 2d for another CHF exacerbation # acute/chronic R-sided heart failure - recent TTE at [facility] showed LVEF 65%, moderate LVH, dilated RV with severe TR + severe pHTN with RVSP >80; likely secondary to intrinsic pulmonary disease - improved after furosmide gtt + metolazone- negative 2.87L this admission. per cardiology, switch to PO furosemide 80 mg bid + metolazone 2.5 mg MWF - cardiology recommends hospice/palliative care; pt not ready for this - continue metoprolol # acute hypoxic resp failure - suppl O2, wean as tolerated as volume status improves # COPD, no acute exacerbation - prn nebs, controlled inhalers Spiriva + Breo # pHTN - continue sildenafil # chronic AF - RC: metoprolol - AC: warfarin- supratherapeutic but coming down- restart at reduced dose 1 mg today # SAM/CKD4 # cardiorenal syndrome - BUN/Cr at [facility] 12/06 was 79/2.49. SCr seems to have settled around 29. Follow[address] Dr Hancock. Would not want HD if it came to that # hypothyroidism - continue levothyroxine # cutaneous candidiasis - fluconazole # DM2 with hypoglycemia - d/c glipizide, give correction-dose lispro if needed # mood disorder - bupropion # VTE ppx - warfarin # dispo - PT consult Quality Stroke Does the patient have a stroke diagnosis?: No VTE Prior VTE?: No VTE Risk Level:: Medical - moderate - high VTE Device Contraindication: Treatment Not Indicated VTE Drug Contraindication: N/A - Med Ordered
--- NOTE | 2020-12-15 14:09 | PM.PNNEP ---
Subjective Subjective Date of Service: 12/15/20 Interval history: Feels better. All recent data reviewed Physical Exam Vital Signs: Vital Signs: Last Vital Signs Temp 97.8 F 12/15/20 11:36 Pulse 76 12/15/20 11:36 Resp 20 12/15/20 11:36 BP 94/57 L 12/15/20 11:36 Pulse Ox 90 L 12/15/20 11:36 Oxygen Flow Rate 2 12/07/20 09:35 Body Mass Index 37.4 Const: General: no acute distress Eyes: EOM: EOMs intact bilaterally Neck: Neck: Yes supple Resp: Auscultation: diminished lung sounds Cardio: Rate: regular rate GI: Palpation (GI): Soft to palpation Neuro: General: moves all extremities Objective Data Labs CBC & Chem 7: 12/07/20 11:44 12/15/20 05:52 Labs: Laboratory Results - last 24 hr 12/15/20 12/15/20 12/15/20 05:52 05:52 06:55 PT 38.4 H INR 3.3 H Sodium 139 Potassium 3.5 Chloride 102 Carbon Dioxide 24 Anion Gap 17 BUN 109 H* Creatinine 2.85 H Estim Creat Clear Calc 19.6 Estimated GFR 16 POC Glucose 81 Random Glucose 92 Calcium 7.9 L 12/15/20 11:02 PT INR Sodium Potassium Chloride Carbon Dioxide Anion Gap BUN Creatinine Estim Creat Clear Calc Estimated GFR POC Glucose 113 Random Glucose Calcium Procedures Date of Service Date of Service: 12/15/20 Assessment & Plan Assessment and plan (1) Acute on chronic kidney failure: Status: Acute Assessment and Plan: 80 year old female with chronic heart failure, COPD with Pulm HTN, HLD, AFIB, CKD 4, admitted with heart failure.? Renal function fairly stable 2 Gram Na diet; Fluid restriction Continue diuresis; No indication for HD Continue supportive care for now Labs AM; Shall follow with team Time Spent With Patient Time: Total time spent is greater than 50% in coordination of care (as documented) at patient's floor/unit and/or counseling patient: Progress Note: Quality Stroke Does the patient have a stroke diagnosis?: No
[2020-12-15 16:26] LABS: Glucose, Whole Blood 126 mg/dL (60-115)
[2020-12-15] MEDS: Warfarin Sodium 1 MG TABLET PO (17:15)
[2020-12-15] MEDS: Furosemide 40 MG TABLET 80 MG PO (17:16)
[2020-12-15 19:57] LABS: Glucose, Whole Blood 159 mg/dL (60-115)
[2020-12-16 03:21] VITALS: BP 113/58; PULSE 78; RESP 16; TEMP 36.6; O2SAT 92
[2020-12-16 06:00] VITALS: BMI 36.9
[2020-12-16 07:03] VITALS: BP 116/64; PULSE 82; RESP 18; TEMP 36.5; O2SAT 94
[2020-12-16 07:16] LABS: INTERNATIONAL NORM RATIO 2.9 (0.9-1.1); Prothrombin Time 33.4 SEC (9.9-13.0)
[2020-12-16 07:22] LABS: Glucose, Whole Blood 112 mg/dL (60-115)
[2020-12-16 07:37] LABS: Estimated Average Glucose 103 mg/dL; Hemoglobin A1c % 5.2 %
[2020-12-16 07:40] LABS: B Type Natriuretic Peptide 2606 pg/mL (<100)
[2020-12-16 07:56] LABS: Anion Gap 18 (12-20); Blood Urea Nitrogen 110 mg/dL (9-16); Carbon Dioxide 22 mmol/L (22-29); Chloride 102 mmol/L (96-108); Creatinine Clr Calc Pharmacy 20.2; Estimated Glomerular Filt Rate 17; Glucose Random 112 mg/dL (60-115); Magnesium 2.1 mg/dL (1.6-2.6); Potassium 3.5 mmol/L (3.3-5.1); Sodium 138 mmol/L (135-145)
[2020-12-16] MEDS: 0.9 % Sodium Chloride Flush 3 ML SYRINGE IVFLUSH (07:59)
[2020-12-16] MEDS: Ferrous Sulfate 324 MG TABLET.DR PO (08:01)
[2020-12-16] MEDS: Levothyroxine Sodium 75 MCG TABLET PO (08:01)
[2020-12-16] MEDS: Multivitamin TABLET 1 TAB PO (08:01)
[2020-12-16 08:02] VITALS: BP 116/64; PULSE 82
[2020-12-16] MEDS: Metoprolol Tartrate 25 MG TABLET PO (08:02)
[2020-12-16] MEDS: Sildenafil Citrate 20 MG TABLET PO ×2 (08:02→15:55)
[2020-12-16] MEDS: Furosemide 40 MG TABLET 80 MG PO (08:02)
[2020-12-16] MEDS: metOLazone 2.5 MG TABLET PO (08:02)
[2020-12-16] MEDS: allopurinoL 100 MG TABLET PO (08:02)
[2020-12-16] MEDS: buPROPion HCL 75 MG TABLET 150 MG PO (08:03)
[2020-12-16] MEDS: Nystatin Powder 15 GM BOTTLE 1 APPL TOPICAL (08:06)
[2020-12-16 09:42] VITALS: BP 116/64; PULSE 82
--- NOTE | 2020-12-16 10:47 | P.PNIM_ITS ---
Subjective Subjective Date of Service: 12/16/20 Interval History: F/u on Chf, renal failure, slowly improving Review of Systems Gen: no fever Resp: no sob, no cough CV: no chest, +RAE, + leg edema GI: No n/v, no abd pain Neuro: No confusion Physical Exam Vital Signs: Vital Signs: Last Vital Signs Temp 97.7 F 12/16/20 07:03 Pulse 82 12/16/20 09:42 Resp 18 12/16/20 07:03 BP 116/64 12/16/20 09:42 Pulse Ox 94 12/16/20 07:03 Oxygen Flow Rate 2 12/07/20 09:35 Body Mass Index 36.9 Objective Data Active Medications Acetaminophen (Acetaminophen 325 Mg Tablet) 650 mg PO Q6H PRN PRN Reason: Pain, Mild (Pain Scale 1-3) Last Admin: 12/09/20 20:56 Dose: 650 mg Documented by: JOHNY Acetaminophen (Acetaminophen 325 Mg Tablet) 650 mg PO Q4H PRN PRN Reason: pain or fever Last Admin: 12/07/20 23:20 Dose: 650 mg Documented by: JASMIN Al Hydroxide/Mg Hydroxide (Magnesium Hydrox/Alum Hydrox 30 Ml Oral.Susp) 30 ml PO Q4H PRN PRN Reason: Heartburn/Nausea Albuterol Sulfate (Albuterol Sulfate 90 Mcg 8 Gm Inhaler) 1 puff INHALE Q4H PRN PRN Reason: Wheezing Allopurinol (Allopurinol 100 Mg Tablet) 100 mg PO DAILY [facility] BEDS AT [facility] Last Admin: 12/16/20 08:02 Dose: 100 mg Documented by: WILI Bupropion HCl (Bupropion Hcl 75 Mg Tablet) 150 mg PO DAILY [facility] 234 BEDS AT [facility] Last Admin: 12/16/20 08:03 Dose: 150 mg Documented by: WILI Dextrose (Dextrose 50 % 25 Gm/50 Ml Vial) 25 gm IVPUSH Q15M PRN; Protocol PRN Reason: per Hypoglycemia Standing Ord. Ferrous Sulfate (Ferrous Sulfate 324 Mg Tablet.Dr) 324 mg PO DAILY [facility]CLUDE 234 BEDS AT [facility] Last Admin: 12/16/20 08:01 Dose: 324 mg Documented by: WILI Fluconazole (Fluconazole 50 Mg Tablet) 50 mg PO DAILY [facility]CLUDE 234 BEDS AT [facility] Last Admin: 12/16/20 08:02 Dose: 50 mg Documented by: WILI Fluticasone/Vilanterol (Fluticasone/Vilanterol 200/25 Blst.W.Dev) 1 puff INHALE DAILY [facility] 234 BEDS AT [facility] Last Admin: 12/16/20 07:22 Dose: Not Given Documented by: SABINA Non-Admin Reason: Patient Refused Furosemide (Furosemide 40 Mg Tablet) 80 mg PO BID@0900,1800 [facility]S INCLUDE 234 BEDS AT [facility]; Protocol Last Admin: 12/16/20 08:02 Dose: 80 mg Documented by: WILI Glucose (Glucose Gel 15 Gm Gel..Gram.) 15 gm PO Q15M PRN; Protocol PRN Reason: per Hypoglycemia Standing Ord. Insulin Human Lispro (Insulin Lispro 100 Unit/Ml 3 Ml Vial) 0 unit SUBCUT QIDACHS COUNTS INCLUDE 234 BEDS AT THE [facility]; Protocol Last Admin: 12/16/20 08:03 Dose: Not Given Documented by: WILI Non-Admin Reason: No Insulin Coverage Levothyroxine Sodium (Levothyroxine Sodium 75 Mcg Tablet) 75 mcg PO DAILY [facility]CLUDE 234 BEDS AT THE [facility] Last Admin: 12/16/20 08:01 Dose: 75 mcg Documented by: WILI Melatonin (Melatonin 3 Mg Tablet) 3 mg PO BEDTIME PRN PRN Reason: Insomnia Metolazone (Metolazone 2.5 Mg Tablet) 2.5 mg PO DAILY [facility] 234 BEDS AT [facility] Last Admin: 12/16/20 08:02 Dose: 2.5 mg Documented by: WILI Metoprolol Tartrate (Metoprolol Tartrate 25 Mg Tablet) 25 mg PO BID [facility]CLUDE 234 BEDS AT [facility]; Protocol Last Admin: 12/16/20 08:02 Dose: 25 mg Documented by: WILI Multivitamins/Vitamin C (Multivitamin Tablet) 1 tab PO DAILY [facility]CLUDE 234 BEDS AT [facility] Last Admin: 12/16/20 08:01 Dose: 1 tab Documented by: WILI Nystatin (Nystatin Powder 15 Gm Bottle) 1 appl TOPICAL BID [facility]S INCLUDE 234 BEDS AT [facility]; Protocol Last Admin: 12/16/20 08:06 Dose: 1 appl Documented by: WILI Omeprazole (Omeprazole 20 Mg Capsule.) 20 mg PO DAILY@0600 [facility]S INCLUDE 234 BEDS AT [facility] Last Admin: 12/16/20 06:39 Dose: Not Given Documented by: JACK Non-Admin Reason: Patient Refused Ondansetron HCl (Ondansetron Hcl 4 Mg/2 Ml Vial) 4 mg IVPUSH Q8H PRN PRN Reason: Nausea and Vomiting Pharmacy Consult (Consult Rx Perform Med Rec) 1 each MISCELLANE ONCE PRN PRN Reason: Consult order Sildenafil Citrate (Sildenafil Citrate 20 Mg Tablet) 20 mg PO TID [facility] 234 BEDS AT [facility] Last Admin: 12/16/20 08:02 Dose: 20 mg Documented by: WILI Sodium Chloride (0.9 % Sodium Chloride Flush 3 Ml Syringe) 3 ml IVFLUSH QSHIFT COUNTS INCLUDE 234 BEDS AT THE [facility] Last Admin: 12/16/20 07:59 Dose: 3 ml Documented by: WILI Tiotropium [place] (Tiotropium [place] 18 Mcg Cap.W.Dev) 1 puff INHALE DAILY [facility] INCLUDE 234 BEDS AT [facility] Last Admin: 12/16/20 07:22 Dose: Not Given Documented by: SABINA Non-Admin Reason: Patient Refused Warfarin Sodium (Warfarin Sodium 1 Mg Tablet) 1 mg PO DAILY@1800 COUNTS INCLUDE 234 BEDS AT [facility] Last Admin: 12/15/20 17:15 Dose: 1 mg Documented by: MYCHAL Labs CBC & Chem 7: 12/07/20 11:44 12/16/20 06:12 Labs: Laboratory Results - last 24 hr 12/15/20 12/15/20 12/15/20 11:02 16:21 19:51 PT INR Anion Gap Estim Creat Clear Calc Estimated GFR POC Glucose 113 126 H 159 H Random Glucose Estimat Average Glucose Hemoglobin A1c % Calcium Magnesium B-Natriuretic Peptide 12/16/20 12/16/20 12/16/20 06:12 06:12 06:12 PT INR Anion Gap 18 Estim Creat Clear Calc 20.2 Estimated GFR 17 POC Glucose Random Glucose 112 Estimat Average Glucose 103 Hemoglobin A1c % 5.2 Calcium 8.0 L Magnesium 2.1 B-Natriuretic Peptide 2606 H 12/16/20 12/16/20 06:18 07:06 PT 33.4 H INR 2.9 H Anion Gap Estim Creat Clear Calc Estimated GFR POC Glucose 112 Random Glucose Estimat Average Glucose Hemoglobin A1c % Calcium Magnesium B-Natriuretic Peptide Assessment and Plan (1) CKD (chronic kidney disease): Status: Acute (2) Persistent atrial fibrillation: Status: Acute (3) Pulmonary HTN: Status: Acute (4) Congestive heart failure: Status: Acute Assessment and Plan: hospital d#10 80yo F with HFpEF, HTN, HLD, AF, CKD4 recent hospitalization at [facility] for CHF exacerbation re-admitted here after 2d for another CHF exacerbation # acute/chronic R-sided heart failure - recent TTE at [facility] showed LVEF 65%, moderate LVH, dilated RV with severe TR + severe pHTN with RVSP >80; likely secondary to intrinsic pulmonary disease - improved after furosmide gtt + metolazone- negative 2.87L this admission. per cardiology, switched to PO furosemide 80 mg bid + metolazone 2.5 mg MWF - cardiology recommends hospice/palliative care; pt not ready for this - continue metoprolol # acute hypoxic resp failure - suppl O2, wean as tolerated as volume status improves # COPD, no acute exacerbation - prn nebs, controlled inhalers Spiriva + Breo # pHTN - continue sildenafil # chronic AF - RC: metoprolol - AC: warfarin- supratherapeutic but coming down- restart at reduced dose 1 mg today # SAM/CKD4 # cardiorenal syndrome - BUN/Cr at [facility] 12/06 was 79/2.49. SCr seems to have settled around 29. Followed by Dr Hancock. Would not want HD if it came to that # hypothyroidism - continue levothyroxine # cutaneous candidiasis - fluconazole # DM2 with hypoglycemia - d/c glipizide, give correction-dose lispro if needed # mood disorder - bupropion # VTE ppx - warfarin # dispo - PT consult, to return to snf Quality Stroke Does the patient have a stroke diagnosis?: No VTE Prior VTE?: No VTE Risk Level:: Medical - moderate - high VTE Device Contraindication: Treatment Not Indicated VTE Drug Contraindication: N/A - Med Ordered
[2020-12-16 11:08] VITALS: BP 114/58; PULSE 65; RESP 18; TEMP 36.4; O2SAT 92
[2020-12-16 11:44] LABS: Glucose, Whole Blood 138 mg/dL (60-115)
--- NOTE | 2020-12-16 12:16 | MHC.CLN ---
F/U PT WITH INCREASED NUTRITION RISK R/T PRESSURE INJURIES. STAGE II SACRUM AND STAGE I TO RIGHT AND LEFT HEELS. PO INTAKE 50-100% WITH MOST MEALS 75-100%. CONTINUES WITH ELEVATED BUN AND Cr. RECENT EPISODE OF LOW BLOOD SUGAR NOTED. CONTINUE CARDIAC DIET. PT RECEIVING ENSURE MAX BID AND TERESA TO PROMOTE WOUND HEALING. SUPPLEMENTS PROVIDE 460 KCALS, 65 G PROTEIN CONTINUE TO MONITOR PO INTAKE AND SUPPLEMENT ACCEPTANCE
--- NOTE | 2020-12-16 12:17 | P.PNNP_ITS ---
Subjective Subjective Date of Service: 12/16/20 Interval history: F/u on Chf, renal failure Physical Exam Vital Signs: Vital Signs: Last Vital Signs Temp 97.6 F 12/16/20 11:08 Pulse 65 12/16/20 11:08 Resp 18 12/16/20 11:08 BP 114/58 L 12/16/20 11:08 Pulse Ox 92 12/16/20 11:08 Oxygen Flow Rate 2 12/07/20 09:35 Body Mass Index 36.9 Const: General: comfortable and no acute distress Orientation/conscio usness: patient oriented x3 Eyes: EOM: EOMs intact bilaterally Neck: Neck: Yes supple and No lymphadenopathy Resp: Effort & Inspection: able to speak in complete sentences and no cough Auscultation: rales, rhonchi and diminished lung sounds Cardio: Palpation: no palpable S3 Rate: regular rate Heart sounds: no rubs GI: Palpation (GI): Soft to palpation Auscultation: normal bowel sounds Neuro: General: patient oriented x3 and moves all extremities Motor exam (neuro): no asterixis Extrem: Right upper extremity: edema Objective Data Labs CBC & Chem 7: 12/07/20 11:44 12/16/20 06:12 Labs: Laboratory Results - last 24 hr 12/15/20 12/15/20 12/16/20 16:21 19:51 06:12 PT INR Sodium 138 Potassium 3.5 Chloride 102 Carbon Dioxide 22 Anion Gap 18 BUN 110 H* Creatinine 2.74 H Estim Creat Clear Calc 20.2 Estimated GFR 17 POC Glucose 126 H 159 H Random Glucose 112 Estimat Average Glucose Hemoglobin A1c % Calcium 8.0 L Magnesium 2.1 B-Natriuretic Peptide 12/16/20 12/16/20 12/16/20 06:12 06:12 06:18 PT 33.4 H INR 2.9 H Sodium Potassium Chloride Carbon Dioxide Anion Gap BUN Creatinine Estim Creat Clear Calc Estimated GFR POC Glucose Random Glucose Estimat Average Glucose 103 Hemoglobin A1c % 5.2 Calcium Magnesium B-Natriuretic Peptide 2606 H 12/16/20 12/16/20 07:06 11:12 PT INR Sodium Potassium Chloride Carbon Dioxide Anion Gap BUN Creatinine Estim Creat Clear Calc Estimated GFR POC Glucose 112 138 H Random Glucose Estimat Average Glucose Hemoglobin A1c % Calcium Magnesium B-Natriuretic Peptide Procedures Date of Service Date of Service: 12/16/20 Assessment & Plan Assessment and plan (1) Acute on chronic kidney failure: Status: Acute Assessment and Plan: 80 year old female with chronic heart failure, COPD with Pulm HTN, HLD, AFIB, CKD 4, admitted with heart failure.? 1. ADV CKD: c/w CRSyn and need to be on hogh dose diurteetics to prevent dCHF 2. HF w pulm HTN She has stated she would not want dialysis if things progressed and likley she would not tolerate it well REC: cont current diuretics but may need to cutback if BUN incr furhter; she can be managed as outpt with labs 2-3 x/wk and daily WTs and resp assessments at SNF Time Spent With Patient Time: Total time spent is greater than 50% in coordination of care (as documented) at patient's floor/unit and/or counseling patient: Progress Note: Quality Stroke Does the patient have a stroke diagnosis?: No
--- NOTE | 2020-12-16 13:10 | PM.DS ---
DS: Providers Provider Date of Service: 12/16/20 Date of admission: 12/07/20 14:25 Primary care physician: Manny Adams MD Consults: 12/07/20 14:28 Consult to Cardiology Routine Consulting Provider: Jadiel Nuñez Reason for consultation: Heart failure exacerbation Has provider been notified: No 12/08/20 10:15 Consult to Nephrology Routine Consulting Provider: Ritesh Hancock Reason for consultation: SAM on CKD Has provider been notified: No 12/10/20 07:00 Consult to Nephrology Routine Consulting Provider: Paul Marques Reason for consultation: SAM Has provider been notified: No DS: Transfer Hospital Acceptance Reason for Transfer: chief complaint: shortness of breath 80 year female with congestive heart failure detail or EF unknown, CKD4 followed by Dr. Hancock, COPD, AFIB on coumadin and other PMH as listed below. She was recently admitted to [facility] and treated for shortness and heart failure for nearly a week and? was discharged to rehab 2 days ago and she presented to [facility] with increasing shortness of breath,? and increasing leg edema. She has been sleeping in recliner and does have PND. Finding here including BNP of 2701, CXR shows elements of CHF, covid negative (She's vaccinated ). Given 20 mg of IV Lasix. Hospital course: # She presented to the hospital just 2 days after discharge from [facility] with heart failure and was still having shortness of breath and was in respiratory falure with hypoxia. She was in heart failure with fluid overload and renal failure that is advanced. Patient was initiated on IV Lasix push and cardiology consultation was requested with Dr. Armstrong. Record review at [facility] showed recent echo with LVEF 65%, moderate LVH, dilated RV with severe TR + severe pHTN with RVSP >80; likely secondary to intrinsic pulmonary disease. Ultimately she needed IV Lasix drip with intermittent dose of Metolazone to help diuresse, in total she has diuressed about 3 liters. Cardiology is recommending oral Lasix of 80 mg twice daily and metolazone 2.5 mg 3 times a week, MWF. Overall prognosis is deemed poor and cardiology suggrest hospice/paliative care but patient doesn't seem to be mentally prepared for that yet. # acute hypoxic resp failure, required supplemental O2, presently on 2 liters by NC # COPD, no acute exacerbation - prn nebs, controlled inhalers Spiriva + Breo # pHTN - continue sildenafil # Chronic Atrial fibrilation - RC: metoprolol - AC: warfarin- supratherapeutic but coming down- restart at reduced dose 1 mg today # SAM/CKD4 # cardiorenal syndrome - BUN/Cr at [facility] 12/06 was 79/2.49.? SCr seems to have settled around 29.? Followed by Dr Hancock.? Would not want HD if it came to that # Hypothyroidism - continue levothyroxine # cutaneous candidiasis - fluconazole for total of 10days, topical nystatin # DM2 with hypoglycemia - d/c glipizide, give correction-dose lispro if needed # mood disorder - bupropion DS: Diagnosis Discharge Diagnosis (1) Acute on chronic kidney failure: Status: Acute DS: Summary Time Spent with Patient Time attestation: Total time spent providing and/or coordinating discharge services: Discharge coordination time: Greater than 30 minutes Quality: Stroke Does the patient have a stroke diagnosis?: No Physical Exam Vital Signs: Vital Signs: Last Vital Signs Temp 97.6 F 12/16/20 11:08 Pulse 65 12/16/20 11:08 Resp 18 12/16/20 11:08 BP 114/58 L 12/16/20 11:08 Pulse Ox 92 12/16/20 11:08 Oxygen Flow Rate 2 12/07/20 09:35 Body Mass Index 36.9 DS: Data Data Completed and Pending Labs on day of discharge: Laboratory Results - last 24 hr 12/15/20 12/15/20 12/16/20 16:21 19:51 06:12 PT INR Sodium 138 Potassium 3.5 Chloride 102 Carbon Dioxide 22 Anion Gap 18 BUN 110 H* Creatinine 2.74 H Estim Creat Clear Calc 20.2 Estimated GFR 17 POC Glucose 126 H 159 H Random Glucose 112 Estimat Average Glucose Hemoglobin A1c % Calcium 8.0 L Magnesium 2.1 B-Natriuretic Peptide 12/16/20 12/16/20 12/16/20 06:12 06:12 06:18 PT 33.4 H INR 2.9 H Sodium Potassium Chloride Carbon Dioxide Anion Gap BUN Creatinine Estim Creat Clear Calc Estimated GFR POC Glucose Random Glucose Estimat Average Glucose 103 Hemoglobin A1c % 5.2 Calcium Magnesium B-Natriuretic Peptide 2606 H 12/16/20 12/16/20 07:06 11:12 PT INR Sodium Potassium Chloride Carbon Dioxide Anion Gap BUN Creatinine Estim Creat Clear Calc Estimated GFR POC Glucose 112 138 H Random Glucose Estimat Average Glucose Hemoglobin A1c % Calcium Magnesium B-Natriuretic Peptide Discharge Plan Discharge Patient Disposition: er SNF Discharge Diagnosis: Acute congestive heart failure, acute on chronic kidney failure. Referrals: Manny Adams MD [Primary Care Provider] - 1 Week Discharge Medications: Continued multivitamin Tablet 1 tab PO DAILY RF: 0 furosemide 40 mg Tablet 40 mg PO BID RF: 0 acetaminophen 325 mg Tablet 650 mg PO Q4H PRN (Reason: pain or fever) RF: 0 allopurinol 100 mg tablet 1 tab PO DAILY RF: 0 guaifenesin [Serena-Tussin] 100 mg/5 mL Liquid 200 mg PO Q4H PRN (Reason: Cough) RF: 0 levothyroxine 75 mcg tablet 75 mcg PO DAILY RF: 0 glipizide 2.5 mg Tablet Extended Release 24 Hr 2.5 mg PO DAILY RF: 0 pantoprazole 40 mg tablet,delayed release (DR/EC) 40 mg PO DAILY RF: 0 warfarin 2 mg Tablet 2 mg PO DAILY RF: 0 bupropion HCl 75 mg Tablet 150 mg PO DAILY RF: 0 albuterol sulfate 90 mcg/actuation Hfa Aerosol Inhaler 1 puff INHALATION Q4H PRN (Reason: Wheezing) RF: 0 ferrous sulfate 325 mg (65 mg iron) Tablet,Delayed Release (Dr/Ec) 325 mg PO DAILY RF: 0 metoprolol tartrate 25 mg tablet 25 mg PO BID RF: 0 Spiriva with HandiHaler 18 mcg Capsule, W/Inhalation Device 18 mcg INHALATION DAILY RF: 0 sildenafil (pulm.hypertension) 20 mg Tablet 20 mg PO TID RF: 0 budesonide-formoterol [Symbicort] 160-4.5 mcg/actuation Hfa Aerosol Inhaler 2 puff INHALATION DAILY RF: 0 Discharge Orders: Discharge Order (Routine); Ordered 12/16/20 Ordered By: Tian Neri Diet: advance to usual diet Activity on Discharge: As tolerated Stand Alone Forms: Patient Portal Discharge page Care Plan Goals: Comfort from heart failure Health Concerns: advanced heart failure, advanced renal failure Plan of Treatment: Take Lasix as directed and follow up with kidney doctor and heart doctor Assessment: Ass above
[2020-12-16 13:17] LABS: COVID-19 Test Negative (Negative)
--- NOTE | 2020-12-16 14:03 | MHC.CM.PN ---
PT TO BE DCD TODAY AT 4:00 TO [facility] AMB
--- NOTE | 2020-12-16 14:10 | MHC.CM.PN ---
SON SYDNEY NOTIFIED OF DC
[2020-12-16 15:08] VITALS: BP 134/63; PULSE 76; RESP 18; TEMP 36.2; O2SAT 90
[2020-12-16 15:58] LABS: Glucose, Whole Blood 172 mg/dL (60-115)
== END 2020-12-16 16:25 | disposition skilled nursing facility (03) | DRG 291 ==
LOC: HO.ED 13:48 → HO.EDOVER 14:34 → HO.IMC 12-08 00:02
PROVIDERS: Family Medicine; Admitting Provider Internal Medicine; Emergency Provider Emergency Medicine; PCP Internal Medicine; Visit Provider Internal Medicine
DX: I13.0 Hypertensive heart and chronic kidney disease with heart failure and stage 1 through stage 4 chronic kidney disease, or unspecified chronic kidney disease (principal); I50.23 Acute on chronic systolic (congestive) heart failure; J96.01 Acute respiratory failure with hypoxia; N17.9 Acute kidney failure, unspecified; I48.21 Permanent atrial fibrillation; N18.4 Chronic kidney disease, stage 4 (severe); K21.9 Gastro-esophageal reflux disease without esophagitis; I27.20 Pulmonary hypertension, unspecified; B37.2 Candidiasis of skin and nail; E03.9 Hypothyroidism, unspecified; E11.649 Type 2 diabetes mellitus with hypoglycemia without coma; Z86.711 Personal history of pulmonary embolism; J44.9 Chronic obstructive pulmonary disease, unspecified; Z20.822 Contact with and (suspected) exposure to COVID-19; E11.22 Type 2 diabetes mellitus with diabetic chronic kidney disease; Z87.891 Personal history of nicotine dependence; Z79.01 Long term (current) use of anticoagulants; Z79.890 Hormone replacement therapy; Z79.899 Other long term (current) drug therapy
CPT/HCPCS: 36415; 71045; 80048; 80076; 81001; 82947; 83036; 83690; 83735; 83880; 84484; 85025; 85610; 87635; 93005; 96374; 97161; 99285; C1758; J1940